=== PATIENT | female | born 1955 | race Caucasian/White ===

== ENCOUNTER 2021-06-18 13:16 | Outpatient (REF) | payer BC, SELFPAY | END 2021-06-18 13:17 | disposition home or self-care (01) | LOC: HO.LNP 13:16 | PROVIDERS: Visit Provider Specialist | DX: H02.821 Cysts of right upper eyelid (principal) | CPT/HCPCS: 88304 ==

== ENCOUNTER 2025-01-31 09:44 | Outpatient (AMB) | payer BC, SELFPAY ==
--- NOTE | 2025-01-31 10:21 | A.SPINEOV_ITS ---
Intake Visit Reasons: low back pain/leg pain Intake Note: Ms. Jones is here today c/o low back and bilateral leg pain. MRI done @ [facility] (brought disc). 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 HPI: This 69-year-old female developed back pain couple of months ago. The p ain is located in the mid lumbar region, around the SI joints and then wrapping towards the hips. Sometimes there is radiation to her thigh. The pain can vary from 3-10. When she bends forward she can get stuck. She can not lay on her sides anymore during sleeping. No weakness or numbness. She saw an orthopedist were excluded hip pathology and thought her symptoms were coming from the spine. PMH: Arthritis, hypertension, right knee replacement hysterectomy, foot and hand surgeries Medications: Faint 0 bright, Tylenol Arthritis, triamcinolone,irbesartan Allergies: Iodine Social history: Nonsmoker Physical Exam: Pleasant female. She walks in a flexed position. No pain with axial loading. SI joint provocative test negative. Radiological Studies: MRI done at [facility] on 12/19/2024 shows severe degenerative disc disease L2-3, L1-L2 and T12-L1. Impression/Plan: This patient developed pain in the lumbar region few months ago. Differential diagnosis is lumbar degenerative disc disease/arthritis versus sacroiliitis. I would like to refer her to our pain management team to to see if with the injections we can localize the origin of the pain. Thank you for allowing me to participate in your patients care. total time spent was 50 minutes in counseling ,coordination of plan, personal review of imaging, surgical decision making and subsequent plan Scott Nails MD, PhD Spine Fellowship Trained Neurosurgeon Director, [facility] Orders: Referrals Pain Management Referral M51.369 - Other intervertebral disc degeneration, lumbar region without mention of lumbar back pain or lower extremity pain Coding Level of Care Code New Pt Level 4 (15656) Diagnoses Lumbar degenerative disc disease M51.369
== END 2025-01-31 11:28 | disposition home or self-care (01) ==
LOC: HO.HNS 09:45
PROVIDERS: PCP Physician Assistant; Visit Provider Neurological Surgery
DX: M51.369 Other intervertebral disc degeneration, lumbar region without mention of lumbar back pain or lower extremity pain (principal)
CPT/HCPCS: 99204

== ENCOUNTER → 2025-01-31 09:44 | Outpatient (BNVA) | payer BC, SELFPAY | PROVIDERS: PCP Physician Assistant; Visit Provider Neurological Surgery ==

== ENCOUNTER 2025-02-13 09:40 | Outpatient (AMB) | payer BC, SELFPAY ==
--- NOTE | 2025-02-13 09:43 | A.OFFVIS_ITS ---
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 She reports a sudden onset of severe pain about two months ago, with the pain starting in the lower back, spreading around the hips, and extending to the right thigh. No triggering event was identified, and the pain is described as stabbing and throbbing in nature, with episodes severe enough to reach a pain scale rating of 10. Associated symptoms include pain radiating to the thigh, specifically the right thigh, and a sensation similar to compression. The patient denies experiencing constant back spasms but notes discomfort similar to misalignment or throbbing like with kidney stones within the affected areas. This patient's medical history is notable for prior arthritis, hypertension, a knee replacement 15 years ago, and a history of hysterectomy. She reports allergic reactions to iodine IV dye. The patient has addressed her pain using Tylenol Arthritis without relief. She also has a documented history of kidney stones. Per referral notes, MRI done at [facility] on 12/19/24 shows severe degenerative disc disease L2-3, L1-L2 and T12-L1, serving as a potential concerns for her current symptoms, alongside confirmed sacroiliac joint dysfunction. She has completed physical therapy and chiropractic adjustments in the past with minimal to no pair relief. - Onset: Sudden onset roughly two months ago - Quality: Stabbing, aching, pulling, sharp, heavy, dull and throbbing - Primary Location: Lower back - Radiation: To the hips and right thigh - Exacerbating Factors: Sleeping and bending, extending backwards, upright positions - Relieving Factors: Tylenol Arthritis, activity modifications with minimal relief - Impact on Function: Difficulty in rising from bed due to significant pain - Affect: Pain disrupts patient's sleep; significant discomfort noted. - Analgesia: Taking Tylenol Arthritis for pain management; severity reaches 10 at worst, aiming for daily relief. - Adverse Effects: Allergy to iodine confirmed. - Activities of Daily Living: Pain affects ability to rise, possibly impacting chores and activities. - Aberrant Drug-Related Behaviors: No reported misuse of medication. Oswestry Low Back Pain Disability=13 [facility] Medical History (Updated 02/13/25 @ 23:09 by AIDEE Mcdonnell) Varicose veins of both lower extremities Insomnia Lichen planus of genitalia Arthritis HTN (hypertension) Surgical History (Updated 02/13/25 @ 10:16 by AIDEE Mcdonnell) History of carpal tunnel release of both wrists History of foot surgery H/O hand surgery History of total right knee replacement (~2009) Social History (Updated 02/13/25 @ 09:47 by Vanda Ellison) Alcohol intake: never Patient Tobacco Use Status: Never used Tobacco Review of Systems Const Details: - Musculoskeletal: Reports back pain with radiation to hips, denies spasms. - Respiratory: Denies breathing difficulty, except with iodine exposure. - Neurological: Reports pain radiating to right leg. Denies bladder or bowel dysfunction or saddle anesthesia. - Sleep: Reports disrupted sleep, wakes frequently. All systems reviewed & are unremarkable except as noted in HPI and below Physical Exam Vital Signs: Last Vital Signs Pulse 80 02/13/25 09:47 BP 162/76 H 02/13/25 09:47 Pulse Ox 99 02/13/25 09:47 Oxygen Delivery Method Room Air 02/13/25 09:47 BMI result Body Mass Index 31.2 General: Appears afebrile. Alert and oriented. Mood and affect appropriate. Follows and participates in conversation appropriately. Respiratory effort is unlabored. No cough. Able to transition from sit to stand unassisted. Ambulates with bilaterally normal heel strike and toe off. General: Yes no CVA tenderness Back/Spine/Pelvis Other: Limited lumbar ROM due to pain. Mildly antalgic gait. No limping. Lumbar extension and axial rotations reproduce moderate pain, lumbar flexion forward and bending reproduces mild pain. Demonstrates 5/5 strength of quadriceps bilaterally as well as flexion/dorsiflexion of bilateral feet against resistance. 2+ pedal pulses bilaterally. Straight leg rise with dorsiflexion negative bilaterally. +2 patellar and achilles reflexes bilaterally. Facet loading test positive bilaterally. Arpit?s and Stinchfield tests are negative bilaterally. No groin pain with I/E hip rotations. Valsalva maneuver negative. Back: no CVA tenderness Cervical Spine: cervical ROM normal, No cervical muscular tenderness, pain with cervical ROM and No Cervical spine tenderness Thoracic/Lumbar Spine: thoracic and lumbar spine normal to inspection, No Thoracic/lumbar spine scar(s), Lasegue's sign negative, straight leg raise negative bilaterally, pain with thoraco-lumbar ROM, paraspinal muscle te nderness, thoraco-lumbar ROM limited, No thoracic spinal tenderness and lumbar spinal tenderness (L4-S1) Pelvis: no buttock tenderness Sacroiliac joints: bilaterally tender to palpation (mild) Extrem General: Yes capillary refill normal, Yes no clubbing, cyanosis or edema and Yes other (RLE varicose veins with inflammation, no pain per patient) Results Reviewed Results Reviewed: Per Dr. Nails note 01/31/25: MRI done at [facility] on 12/19/2024 shows severe degenerative disc disease L2-3, L1-L2 and T12-L1. Assessment & Plan Assessment & Plan (1) Low back pain: Code(s): M54.50 - Low back pain, unspecified Category: Medical (2) Muscle spasm of back: Code(s): M62.830 - Muscle spasm of back Category: Medical (3) Sacroiliitis: Code(s): M46.1 - Sacroiliitis, not elsewhere classified Category: Medical (4) Lumbar degenerative disc disease: Code(s): M51.369 - Other intervertebral disc degeneration, lumbar region without mention of lumbar back pain or lower extremity pain Category: Medical (5) Lumbosacral spondylosis: Code(s): M47.817 - Spondylosis without myelopathy or radiculopathy, lumbosacral region Category: Medical Plan Arrangements will be made for diagnostic injections to elucidate the precise origin of pain, with attention to potential lumbar degenerative disc disease, sa croiliac joint dysfunction, or arthritis. The procedure will be conducted with [id number] contrast in local OR setting. Guidance provided stressed the minimal risk of these diagnostic injections and the significant potential aid in isolating the pain source for proper treatment planning. Schedule diagnostic bilateral L3-L4 DR L5 medial branch blocks with local and fluoroscopy. If she has significant relief from the diagnostic blocks for her predominantly axial low back pain, will consider either therapeutic injections, Sprint PNS or RFA depending on her preference. Expectations, risks and benefits were reviewed. Patient is aware she will be contacted to schedule this procedure. All questions and concerns have been answered and patient agreed with the andres atment plan. Follow-up after injections and sooner as needed. Patient was informed and verbally consented to the use of an ambient scribe for clinic note documentation during this visit. Coding Level of Care Code New Pt Level 4 (49866) Diagnoses Low back pain M54.50 Muscle spasm of back M62.830 Sacroiliitis M46.1 Lumbar degenerative disc disease M51.369 Lumbosacral spondylosis M47.817
[2025-02-13 09:47] VITALS: BP 162/76; PULSE 80; O2SAT 99; BMI 31.2
--- OUTSIDE RECORDS SUMMARY | 2025-02-13 10:41 | XMS_ITS | Data Portability ---
Author Organization [facility], , [facility] Address [address] [place] [address] Care Team Providers Care Chief Specialist Leed Name Role Phone TOMAS MCCORMACK Orthopedic Surgeon ARIADNE MITCHELL Orthopedic Surgeon TONE GARY [employer] FRANCIA NORRIS Mechanical Tech RADHIKA BILLINGS Primary Care Provider TAISHA COX Vegetable Trimmer Assessment No assessment recorded. Plan of Treatment Reminders Order Date Submit Date Provider Last Modified By Organization Details Last Modified Time Details Appointments Foll ow Up, 15 2024 11:00A M RADHIKA BILLINGS PA-C Not available Not available Not available Mamm ogra m, Scre enin g 2024 11:30A M [facility] Mammography Not available Not available Not available Lab None ian rded . Referral None ian rded . Procedures None ian rded . Surgeries None ian rded . Imaging XR, hip + pelv is, unil ater al, 2 or 3 view - R hip pain wors enin g 2024 025 [facility] (Imaging), [address], [place], [address], 11/25/2024 11:36:35 XR, sacr oili ac join t(s) - radi atin g R hip pain wors enin g. 2024 025 [facility] (Imaging), [address] [place], [address], 11/25/2024 11:39:42 XR, knee , weig htbe jhonny g - wors enin g R knee pain , s/p knee repl acem ent in 50s 2024 025 [facility] (Imaging), [address], [place], [address], 11/07/2024 13:29:35 Medication Orders irbe sart an 150 mg tabl et 2024 025 atul luna [facility], [facility], [place], [address], 09/05/2024 12:44:13 losa rtan 25 mg tabl et 2023 024 [facility], [facility], [place], [address], 07/23/2024 09:15:11 Patient TargetsNo targets recorded. Patient InstructionsNo instructions recorded. Reason for Referral None Reported. Results Created Date Observation Date Name Description Value Unit Range Abnormal Flag Note LastModifiedBy Organization Detail LastModifiedTime 08/30/2008/30/2024 LIPID PANEL cholesterol 198 mg/dL <200 mg/dl Sosa able 200-2 39 mg/dl Borde rline High >240 mg/dl High Not Available [address], [address], 08/30/2024 14:06:11 08/30/20 24 08/30/2024 LIPID PANEL triglyceride s 227 mg/dL <150 mg/dL Rona l 150-1 99 mg/dL Borde rline High 200-4 99 mg/dL High >500 mg/dL Very High Not Available [address], [address], 08/30/2024 14:06:11 08/30/20 24 08/30/2024 LIPID PANEL direct HDL 42 mg/dL <40 mg/dl - Major Risk for CHD >60 mg/dl - Negat masha Risk for CHD Not Available [address], [address], 08/30/2024 14:06:11 08/30/20 24 08/30/2024 LDL - CALCU LATED LDL - calculated 111 RISK CATEG ORY LDL GOAL _ CHD or CHD Risk Equiv alent s <100 mg/dl (10-y ear risk >20%) 2+ Risk Facto rs <130 mg/dl (10-y ear risk <= 20%) 0-1 Risk Facto r? <160 mg/dl ? Almos t all peopl e with 0-1 risk facto r have a 10 year risk <10%, thus 10 year risk asses ment in peopl e with 0-1 risk facto r is not eileen craig. Not Available [address], [address], 08/30/2024 14:06:12 08/30/20 24 08/30/2024 BASIC METAB OLIC PANEL glucose 107 mg/dL 70-100 high Not Available [address], [address], 08/30/2024 14:12:15 08/30/20 24 08/30/2024 BASIC METAB OLIC PANEL BUN 18 mg/dL 7-18 Not Available [address], [address], 08/30/2024 14:12:15 08/30/20 24 08/30/2024 BASIC METAB OLIC PANEL creatinine 0.8 mg/dL 0.8-1. 3 Not Available [address], [address], 08/30/2024 14:12:15 08/30/20 24 08/30/2024 BASIC METAB OLIC PANEL B/C 22.5 ratio Not Available [address], [address], 08/30/2024 14:12:15 08/30/20 24 08/30/2024 BASIC METAB OLIC PANEL GFR >=60ML /MIN mL/mi n normal >=60m L/min - Rona l or midly reduc ed <60mL /min- Decre ased kidne y funct ion <15mL /min - Kidne y failu re [facility] calcu lates estim ated Glome rular Filtr ation Rate (eGFR ) using the Chron ic Kidne y Disea se Epide miolo gy Colla borat ion (CKD- EPI) Equat ion (Inke r et. al 2020) as recom dakota d by the Natio nal Kidne y Found ation . eGFR is based on age, serum creat inine , and sex. CKD-E PI does not calcu late eGFR by race, does not apply to child gwen (age <18 years ), and shoul d not be used in pregn isabell. Not Available [address], [address], 08/30/2024 14:12:15 08/30/20 24 08/30/2024 BASIC METAB OLIC PANEL sodium 143 mmol/ L 136-14 5 Not Available [address], [address], 08/30/2024 14:12:15 08/30/20 24 08/30/2024 BASIC METAB OLIC PANEL potassium 4.2 mmol/ L 3.5-5. 1 Not Available [address], [address], 08/30/2024 14:12:15 08/30/20 24 08/30/2024 BASIC METAB OLIC PANEL chloride 107 mmol/ L 96-107 Not Available [address], [address], 08/30/2024 14:12:15 08/30/20 24 08/30/2024 BASIC METAB OLIC PANEL anion gap 13.7 5.0-15 .0 Not Available [address], [address], 08/30/2024 14:12:15 08/30/20 24 08/30/2024 BASIC METAB OLIC PANEL CO2 26 mmol/ L 21-32 Not Available [address], [address], 08/30/2024 14:12:15 08/30/20 24 08/30/2024 BASIC METAB OLIC PANEL calcium 9.0 mg/dL 8.5-10 .3 Not Available [address], [address], 08/30/2024 14:12:15 08/30/20 24 08/30/2024 HGB A1C hemoglobin A1C 5.6 % 4.8-6. 0 Goal: <7% in Patie nts with Diabe kimberli An A1c betwe en 5.7-6 .4% is ident ified as pre-d iabet es and sugge sts risk for progr essio n to diabe kimberli Two a1c value s of 6.5% or highe r is consi stent with a diagn osis of diabe kimberli but may need furth er confi rmati on Not Available [address], [address], 08/30/2024 14:16:01 08/30/20 24 08/30/2024 HGB A1C estimated average glucose 114.0 mg/dL Not Available [address], [address], 08/30/2024 14:16:01 06/27/20 24 06/27/2024 MAMMO , scree cheng, tomos ynthe sis, bilat eral MAMMO, SCREEN , MIKEY, BILAT: 2023. BI-RAD S: 1 CLINIC AL: 69-yea r old Female for Bilate ral Screen ing Mammog nakita. Radha Gamboa lifeti me risk of 8.4%. No person al or first- degree family histor y of breast cancer . Nino savage report ed family histor y of breast cancer : matern al grandm other and matern al aunt. PRIOR EXAMS: Review ed previo us images from 2022 and 2020. MAMMOG JOANNA TECHNI QUE: 3D mammog joanna (tomos ynthes is) and 2D mammog joanna (C-vie w) images are genera oswald. Images review ed with a CAD system . DENSIT Y B. There are scatte red areas of fibrog landul ar densit y. MAMMOG JOANNA FINDIN GS Bilate ral: No suspic ious mass, asymme try, microc alcifi cation , or other abnorm ality seen. CONCLU SIONNo eviden ce of malign isabell. RECOMM ENDATI ONS Bilate ralAnn ual screen ing mammog joanna. ADMINI STRATI VE: A lay summar y was mailed to your patien t indica ting the result s and recomm endati ons for follow -up. OVERAL L ASSESS MENT CATEGO RY BI-RAD S-1: Negati ve. The [employer] recomm ends annual screen ing mammog joanna beginn ing at age 40 for women with averag e risk of breast cancer . ELECTR ONICAL LY SIGNED : Melecio Son M.D. on 2023 at 02:35: 05 PM Yrn valiente Physic wilfrido: Melecio Son [email or web address] [facility] (Imaging) [address] [place], [address], 06/27/2024 14:54:26 11/08/19 25 11/07/2024 XR, knee, weigh tbear ing CLINIC AL HISTOR Y: Right knee pain. TECHNI QUE: AP, obliqu e and latera l views of the right knee obtain ed. COMPAR ANGEL: March 03, 2022 FINDIN GS: There is no fractu re or sublux ation. . Patien t is status post right total knee arthro plasty . Alignm ent is anatom ic. There is no eviden ce of loosen ing. There is no effusi on.. IMPRES KELI: Status post right total knee arthro plasty . No abnorm ality. . Yrn valiente Physic wilfrido: Melecio Son [email or web address] [facility] (Imaging) [address] [place], [address], 11/21/2024 09:20:44 11/26/19 25 11/25/2024 XR, hip + pelvi s, unila teral , 2 or 3 view CLINIC AL HISTOR Y: Radiat ing right hip pain worsen ing. TECHNI QUE: Two views of the right hip are obtain ed. An AP view of the pelvis . 3 images . Additi onal inform ation: Patien t had extrem e diffic ulty positi oning for frog-l eg latera l. FINDIN GS: No acute fractu re seen. No right hip disloc ation seen. Subjec tively minima l osteoa rthrit ic change s within the right hip. Degene rative change s within the spine. IMPRES KELI: No acute bony abnorm ality seen. Please see body of report . Yrn valiente Physic wilfrido: Randall [facility] (Imaging) [address], [place], [address], 11/26/2024 13:54:31 11/26/19 25 11/25/2024 XR, sacro iliac joint (s) CLINIC AL HISTOR Y: Radiat ing right hip pain worsen ing TECHNI QUE: 3 views of the sacrum , coccyx and sacroi liac joints are obtain ed. 3 images . COMPAR ANGEL: Pelvis /right hip radiog raph same day. FINDIN GS: No acute fractu re seen. Some degene rative change s within the spine. No sacroi liac joint disloc ation. IMPRES KELI: No acute bony abnorm ality. Yrn valiente Physic wilfrido: Randall [facility] (Imaging) [address], [place], [address], 11/26/2024 13:54:32 Result Notes None recorded. Problems Name Problem SNOMED Code Status Onset Date Resolution Date Notes Provider Name and Address Organization Details Recorded Time Mixed hyperlip idemia 878543414 Completed 11/26/[address] [place] [address] [place], [address] , [facility] 6 11:49:47 Abnormal gait 51886950 Completed 11/26/2015 Justine ToddO. [address] [place], [place] [address] [place], [address], [facility] 6 11:49:47 Kidney stone 31415526 Active JF Richards [address] [place], [place] [address] [place], [address], [facility] 2 11:52:44 Osteoart hritis of joint of hand 41911537 Active JF Richards [address] [place], [place] [address] [place], [address], [facility] 2 11:52:48 Polyp of colon 31293391 Active 2016 adenomat ous polyp, last colo 01/2018 repeat 3 yrs JF Richards [address] [place], [place] [address] [place], [address], [facility] 2 11:52:52 Obesity 353812352 Active 2017 JF Richards [address] [place], [place] [address] [place], [address], [facility] 2 11:52:38 Osteoart hritis 625474241 Active 2021 JF Julio [address] [place], [place] [address] [place], [address], [facility] 2 10:27:01 Pain of right knee joint 14994389616 4100 Active 2022 s/p total replacme nt. JF Julio [address] [place], [place] [address] [place], [address], [facility] 3 09:27:20 Carpal tunnel syndrome of right wrist 02926777934 9108 Active 2022 JF Julio [address] [place], [place] [address] [place], [address], [facility] 3 09:27:37 Hypertri glycerid emia 247721009 Active 2022 JF Julio [address] [place], [place] [address] [place], [address], [facility] 3 09:40:55 Impaired fasting glycemia 105009930 Active 2022 JF Julio [address] [place] [address] [place], [address], [facility] 3 15:40:39 Prediabe kimberli 148110771 Active 2022 JF Julio [address] [place], [place] [address]am[place], [address], [facility] 3 11:26:08 Chest pain 01998161 Active 2023 [facility] Jana Sol null, [facility] 4 10:06:59 Essentia l hyperten keli 08281287 Active 2023 JF Julio [address] [place] [address] [place], [address], [facility] 4 10:03:30 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 Procedures Surgical History Date Name Laterality Status Provider Name and Address Organization Details Recorded Time 023 Medicare Wellness Visit completed Tabitha Torres MA [facility] 03/06/2023 08:47:08 023 Cardiovascular disease risk reduction counseling completed JF Julio [address] [place] [address], [address], [facility] 03/06/2023 09:50:21 022 Medicare Wellness Visit completed Thi Armendariz MA [facility] 11/23/2021 16:23:42 018 Colonoscopy completed Maurice Freeman NP [address] [place] [address], [phone], [facility] 02/06/2018 19:32:13 016 Michael - Colonoscopy completed Adonis Rodriguez MD [address] [place] [address], [address], [facility] 07/18/2016 08:07:16 completed Yasmin Lacy LPN [facility] 06/08/2012 09:40:06 Total Hysterectomy completed Yasmin Lacy LPN [facility] 06/08/2012 08:53:54 Tonsillectomy completed Yasmin Lacy LPN [facility] 06/08/2012 08:53:54 Cystourethroscopy completed Yasmin Lacy LPN [facility] 06/08/2012 09:40:06 Imaging Results None recorded. Procedure Notes None recorded. Medical Equipment None Reported. Allergies Allergen ID Allergen Name Allergen Category Reaction Reaction Severity Criticality Documentation Date Start Date Code Code System Note Provider Name and Address Organization Details Recorded Time 784648 Aleve medicatio n itching Not available Not available 06/05/201247938 1 RxNorm Aleve -D Jana Salmeron [facility] 2 14:01:43 068884 Product containin g penicilli n (product) medicatio n Not available Not available Not available 06/05/2012 11625 8001 SNOMED Monet Green [facility] 2 11:03:18 788672 Keflex medicatio n nausea Not available Not available 06/05/201240100 7 RxNorm Monet Green [facility] 2 11:03:18 126162 Macrodant in medicatio n Not available Not available Not available 06/05/2012 4 RxNorm Monet Green [facility] 2 11:03:18 758140 Iodinated contrast media (substanc e) medicatio n respirato ry distress Not available Not available 06/08/2012 13932 2004 SNOMED Yasmin Lacy LPN [facility] 2 08:56:47 777019 losartan medicatio n Not available Not available Not available 07/09/2024 66688 RxNorm dizzy /upse t stoma JF Bingham [address] [place] [address], [place], [address], [facility] 4 11:31:52 669329 lisinopri l medicatio n Not available Not available Not available 07/30/2024 22747 RxNorm cough RADHIKA BILLINGS PA-C [address] [place] [address], [place], [address] [place] [address] 4 10:46:48 Medications Name Sig Start Date Stop Date Status Note LastModified by Organization Details LastModified Time cyclobenz aprine 10 mg tablet PLEASE SEE ATTACHED FOR DETAILED DIRECTIO NS 11/24 completed Not Available Not Available Not Available amoxicill in 500 mg capsule 03/06 completed not taking 03/06/23 SM Not Available Not Available Not Available silver sulfadiaz ine 1 % topical cream APPLY A 1/16 INCH (1.5 MM) THICK LAYER TO ENTIRE BURN AREA BY TOPICAL ROUTE 2 TIMES PER DAY active Not Available Not Available No t Available nystatin 100,000 unit/mL oral suspensio n 04/30 completed Not Available Not Available Not Available clindamyc in HCl 300 mg capsule 04/30 completed Not Available Not Available Not Available azithromy sadie 250 mg tablet take 2 tabs on day one and 1 tab daily for 4 more days 11/29 completed Not Available Not Available Not Available alprazola m 1 mg tablet TAKE 1 TABLET BY MOUTH 1 HOUR PRIOR TO SURGERY 06/07 completed Not Available Not Available Not Available nystatin 100,000 unit/gram topical ointment APPLY TOPICALL Y 3 TIMES WEEKLY TO VULVA active Not Available Not Available No t Available benzonata te 200 mg capsule Take 1 capsule 3 times a day by oral route for 10 days. 11/29 completed Not Available Not Available Not Available hydrocodo ne 5 mg-acetam inophen 325 mg tablet 04/30 completed Not Available Not Available Not Available meloxicam 15 mg tablet TAKE 1 TABLET BY MOUTH DAILY AFTER A MEAL. STOP IF STOMACH UPSET OCCURS 06/07 completed Not Available Not Available Not Available betametha sone, augmented 0.05 % topical cream 12/12 completed Not Available Not Available Not Available clindamyc in HCl 150 mg capsule 09/14 completed Not Available Not Available Not Available metronida zole 500 mg tablet 04/30 completed Not Available Not Available Not Available fluocinon terrie 0.05 % topical ointment 11/29 completed Not Available Not Available Not Available prochlorp erazine maleate 10 mg tablet 10/12 completed Not Available Not Available Not Available sulfameth oxazole 800 mg-trimet hoprim 160 mg tablet TAKE 1 TABLET BY MOUTH EVERY 12 HOURS FOR 7 DAYS 01/18 completed Not Available Not Available Not Available tramadol 50 mg tablet TAKE 1 TABLET BY MOUTH EVERY 6 HOURS NEEDED 03/06 completed not taking 03/06/23 SM Not Available Not Available Not Available amoxicill in 500 mg tablet TAKE 1 TABLET BY MOUTH THREE TIMES DAILY FOR 7 DAYS 01/18 completed Not Available Not Available Not Available fenofibra te micronize d 134 mg capsule TAKE 1 CAPSULE DAILY active Not Available Not Available No t Available ketorolac 0.5 % eye drops INSTILL 1 DROP IN THE LEFT EYE FOUR TIMES DAILY. START ON 1 AT BREAKFAS T, LUNCH, DINNER & BED TIME. 11/24 completed not taking 11/24/21 [place] Not Available Not Available Not Available nystatin- triamcino lone 100,000 unit/gram -0.1 % topical ointment 10/12 completed Not Available Not Available Not Available ofloxacin 0.3 % ear drops INSTILL 10 DROPS TO LEFT EAR DAILY FOR 7 DAYS 03/06 completed Not Available Not Available Not Available prednisol one acetate 1 % eye drops,tejas pension INSTILL 1 DROP INTO BOTH EYES TWICE A DAY 11/24 completed not taking 11/24/21 [place] Not Available Not Available Not Available benzonata te 100 mg capsule TAKE 1 TO 2 CAPSULES BY MOUTH 3 TIMES A DAY NEEDED FOR COUGH 12/12 completed Not Available Not Available Not Available cephalexi n 500 mg capsule TAKE 1 CAPSULE BY MOUTH THREE TIMES A DAY FOR 7 DAYS 11/24 completed not taking 11/24/21 [place] Not Available Not Available Not Available triamcino lone acetonide 0.1 % topical ointment APPLY A LENTIL-S IZED AMOUNTTO PICALLY TO VULVA 3 TIMES WEEKLY active Not Available Not Available No t Available halobetas ol propionat e 0.05 % topical ointment 10/12 completed Not Available Not Available Not Available lisinopri l 10 mg tablet TAKE 1 TABLET DAILY. SWITCHFR OM LOSARTAN 07/30 completed s/e- cough. pt d/c Not Available Not Available Not Available losartan 25 mg tablet TAKE 1 TABLET DAILY 07/23 completed Not Available Not Available Not Available gabapenti n 300 mg capsule 11/30 completed Not Available Not Available Not Available hydrochlo rothiazid e 25 mg tablet Take 1 tablet every day by oral route. 08/05 completed declines to try due to s/e chance. Not Available Not Available Not Available mupirocin 2 % topical ointment APPLY TOPICALL Y JUST INSIDE EACH NOSTRIL TWICE DAILY FOR 5 DAYS active prn, before surgerie s. Not Available Not Available Not Available irbesarta n 150 mg tablet TAKE 1 TABLET DAILY active Not Available Not Available No t Available Cheratuss in AC 10 mg-100 mg/5 mL oral liquid Take 10 mL every 4 hours by oral route. 11/29 completed Not Available Not Available Not Available ibuprofen 600 mg tablet TAKE 1 TABLET BY MOUTH EVERY 6 HOURS NEEDED FOR PAIN 01/18 completed Not Available Not Available Not Available methylpre dnisolone 4 mg tablets in a dose pack TAKE DIRECTED FOR 6 DAYS 11/29 completed Not Available Not Available Not Available betametha sone dipropion ate 0.05 % topical ointment 12/12 completed Not Available Not Available Not Available loratadin e 10 mg tablet TAKE 1 TABLET BY MOUTH EVERY DAY 04/30 completed Not Available Not Available Not Available amoxicill in 875 mg-potass ium clavulana te 125 mg tablet TAKE 1 TABLET BY MOUTH EVERY 12 HOURS FOR 7 DAYS 03/03 completed Not Available Not Available Not Available amoxicill in 500 mg-potass ium clavulana te 125 mg tablet 03/06 completed not taking 03/06/23 SM Not Available Not Available Not Available oxycodone 5 mg tablet TAKE 1-2 TABLETS (5-10 MG TOTAL) BY MOUTH EVERY 6 (SIX) HOURS NEEDED FOR MODERATE PAIN. 06/07 completed Not taking 01/19/24 SD/12/04 024- not taking, per pt TR/RMA Not Available Not Available Not Available neomycin- polymyxin -hydrocor t 3.5 mg-10,000 unit/mL-1 % ear drops,tejas p INSTILL 3 DROPS INTO EACH EAR FOUR TIMES DAILY 03/06 completed Not Available Not Available Not Available Estrace 0.01% (0.1 mg/gram) vaginal cream 11/29 completed Not Available Not Available Not Available olmesarta n 20 mg tablet active Not Available Not Available Not Available azithromy sadie 500 mg tablet 12/12 completed Not Available Not Available Not Available Premarin 0.625 mg/gram vaginal cream 11/29 completed Not Available Not Available Not Available Boostrix Tdap 2.5 Lf unit-8 mcg-5 Lf/0.5 mL intramusc ular syringe inject 0.5 millilit er intramus cularly 06/17 completed Not Available Not Available Not Available chlorhexi dine gluconate 0.12 % mouthwash SWAB SURGICAL AREA TWICE DAILY 04/30 completed Not Available Not Available Not Available multivita min one daily active per pt Not Available Not Available No t Available Tylenol Arthritis Pain 2 tabs TID active per pt Not Available Not Available No t Available Zostavax (PF) 19,400 unit/0.65 mL subcutane ous suspensio n active Not Available Not Available Not Available ProAir HFA 90 mcg/actua tion aerosol inhaler INHALE TWO PUFFS BY MOUTH EVERY 4 HOURS NEEDED 11/29 completed Not Available Not Available Not Available Trilipix 135 mg capsule,d elayed release 03/21 completed Not Available Not Available Not Available estradiol 10 mcg vaginal tablet INSERT 1 TABLET VAGINALL Y 3TIMES A WEEK active Not Available Not Available No t Available Prevnar 13 (PF) 0.5 mL intramusc ular syringe ADM 0.5ML IM UTD 06/17 completed Not Available Not Available Not Available Aerochamb er Plus Flow-Vu USE DIRECTED 11/29 completed Not Available Not Available Not Available Flucelvax (PF) 45 mcg (15 mcg x 3)/0.5 mL IM syringe active Not Available Not Available Not Available Fluvirin 45 mcg (15 mcg x 3)/0.5 mL intramusc ular suspensio n 10/12 completed Not Available Not Available Not Available Xiidra 5 % eye drops in a dropperet te 03/23 /2022 completed not taking 11/24/21 [place] Not Available Not Available Not Available Flucelvax Quad (PF) 60 mcg (15 mcg x 4)/0.5 mL IM syringe VACCINAT ION ADMINIST ERED BY PHARMACI ST 09/14 completed Not Available Not Available Not Available Flucelvax Quad (PF) 60 mcg (15 mcg x 4)/0.5 mL IM syringe 09/14 completed Not Available Not Available Not Available Afluria Qd (36 mos up)(PF)60 mcg (15 mcg x4)/0.5 mL IM syringe inject 0.5 millilit ers intramus cularly 06/17 completed Not Available Not Available Not Available Fluad Quad (65yr up)(PF) 60 mcg (15 mcg x 4)/0.5mL IM syringe ADM 0.5ML IM UTD 06/17 completed Not Available Not Available Not Available Vitals Date Recorded Body height Body mass index (BMI) Body weight Oxygen saturation Oxygen saturation in Arterial blood by Pulse oximetry Heart rate Systolic blood pressure Diastolic blood pressure Systolic blood pressure Diastolic blood pressure Provider Name and Address Organization Details Last Updated DateTime 5 175.26 cm 30.5 kg/m2 75312.4 3 g 97 % 97 % 74 /min 148 mm[Hg] 86 mm[Hg] 144 mm[Hg] 81 mm[Hg] Karen Summers MA [facility] 5 11:16:01 Date Recorded Body height Oxygen saturation Oxygen saturation in Arterial blood by Pulse oximetry Heart rate Body mass index (BMI) Body weight Systolic blood pressure Diastolic blood pressure Systolic blood pressure Diastolic blood pressure Provider Name and Address Organization Details Last Updated DateTime 5 175.26 cm 98 % 98 % 74 /min 30.9 kg/m2 60519.8 1 g 152 mm[Hg] 88 mm[Hg] 132 mm[Hg] 74 mm[Hg] Karen Summers MA [facility] 5 10:57:01 Date Recorded Systolic blood pressure Diastolic blood pressure Provider Name and Address Organization Details Last Updated DateTime 11/22/2024 146 mm[Hg] 90 mm[Hg] RADHIKA BILLINGS PA-C [address] [place] [address], [phone] 11/22/2024 15:31:33 Date Recorded Body height Heart rate Oxygen saturation Oxygen saturation in Arterial blood by Pulse oximetry Systolic blood pressure Diastolic blood pressure Provider Name and Address Organization Details Last Updated DateTime 5 175.26 cm 74 /min 96 % 96 % 164 mm[Hg] 92 mm[Hg] Ade Jyoti [facility] 5 15:18:13 Date Recorded Body height Body mass index (BMI) Body weight Heart rate Oxygen saturation Oxygen saturation in Arterial blood by Pulse oximetry Systolic blood pressure Diastolic blood pressure Provider Name and Address Organization Details Last Updated DateTime 5 175.26 cm 31.4 kg/m2 47345.3 8 g 74 /min 98 % 98 % 126 mm[Hg] 78 mm[Hg] Christiano [facility] 5 11:08:21 Date Recorded Body height Body mass index (BMI) Body weight Oxygen saturation Oxygen saturation in Arterial blood by Pulse oximetry Heart rate Systolic blood pressure Diastolic blood pressure Systolic blood pressure Diastolic blood pressure Provider Name and Address Organization Details Last Updated DateTime 4 175.26 cm 31.2 kg/m2 43393.9 9 g 97 % 97 % 70 /min 144 mm[Hg] 88 mm[Hg] 140 mm[Hg] 86 mm[Hg] Karen Summers [facility] 4 09:39:28 Date Recorded Systolic blood pressure Diastolic blood pressure Provider Name and Address Organization Details Last Updated DateTime 07/25/2024 140 mm[Hg] 80 mm[Hg] RADHIKA BILLINGS PA-C [address] [place] [address], [phone] 07/25/2024 08:39:43 Social History Question Answer Notes LastModified by Organizat ion Details LastModified Time Tobacco Smoking Status Never Smoker Jana lewis [facility] 06/11/2012 14:10:46 What Is Your Level Of Caffeine Consumption? Moderate 2-4 Coke's A Day [email or web address] Information not available 06/11/2012 How Much Tobacco Do You Chew? None [email or web address] Information not available 06/11/2012 What Type Of Diet Are You Following? REGULAR Information not available 06/11/2012 Which Illicit Or Recreational Drugs Have You Used? None Information not available 06/11/2012 Education 12 [email or web address] Information no t available 06/11/2012 Are There Any Guns Present In Your Home? No Information not available 11/26/2015 Do You Use Insect Repellent Routinely? No Information not available 11/24/2021 Live Alone Or With Others? With Others Information not available 06/11/2012 Patient Has Health Care Proxy Signed And In Chart Yes [email or web address] Information not available 08/22/2018 MOLST Form Signed And In Chart 05/02/2023 [email or web address] Information not available 05/04/2023 Marital Status [email or web address] Informatio n not available 06/11/2012 Mosquito Repellent Used Routinely No [email or web address] Information not available 06/11/2012 What Was The Date Of Your Most Recent Tobacco Screening? 02/07/2025 [email or web address] Information not available 02/07/2025 How Many Children Do You Have? 2 Grown [email or web address] Information not available 06/11/2012 Do You Use Your Seat Belt Or Car Seat Routinely? Yes Information not available 11/24/2021 Seat Belts Used Routinely Yes [email or web address] Information not available 06/11/2012 Are You Sexually Active? No Please Do Not Ask Patient At Visits [email or web address] Information not available 12/12/2018 Smoke Alarm In Home Yes Information not available 06/11/2012 Do You Have Smoke And Carbon Monoxide Detectors In Your Home? Yes [email or web address] Information not available 11/24/2021 Are You Passively Exposed To Smoke? No Information not available 03/06/2023 General Stress Level High Information not available 06/11/2012 Do You Use Sunscreen Routinely? Yes As Needed [email or web address] Information not available 11/26/2015 Sex: Unknown Functional Status Question Answer Note LastModified by Organization D etails LastModified Time What is your level of alcohol consumption? 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 None [email or web address] Information not available 11/24/2021 Mental Status None recorded. Family History Relationship Description Onset Age of this Age Resolved Age Notes LastModified by Organization Details LastModified Time Father Chronic obstructive pulmonary disease 67 previo usly record ed as COPD [email or web address] Not available 11/21/2013 08:58:59 Father Myocardial infarction 50 [email or web address] Not available 11/24 11:45:52 Maternal Grandmother Malignant tumor of breast 70 [email or web address] Not available 2013 08:58:59 Mother Hypertensive disorder [email or web address] Not available 2013 08:58:59 Medical History Condition Response Obesity Y Osteoarthritis Y Gynecological HistoryNo gynecological history recorded. Obstetrics History GPAL:G 0 P 0 0 0 0 Immunizations Vaccine Type Date Status Note Provider Nam e and Address Organization Details Recorded Time influenza, seasonal, intradermal, preservative free 2 completed Not Available [facility] 09/21/2019 02:18:38 Tdap 4 completed Not Available [facility] 09/21/2019 02:16:08 Influenza, split virus, trivalent, preservative 3 completed GORDON Shepherd, [facility] 11/21/2013 08:42:26 zoster live 5 completed GORDON López, [facility] 11/26/2015 11:08:26 influenza nasal, unspecified formulation 5 [facility]/26/2015 11:08:26 Influenza, split virus, quadrivalent, preservative 6 completed [facility] 05/25/2016 11:22:41 Influenza, split virus, quadrivalent, preservative 7 completed CARLINE Lopez[facility] 05/16/2017 12:25:26 Influenza, split virus, quadrivalent, preservative 8 completed [facility] 05/18/2018 13:47:33 Tdap 9 completed [facility] 06/28/2024 09:34:33 Influenza, split virus, quadrivalent, preservative 0 completed Evelia Stout PA-C [address] [place] [address], [phone], [facility] 06/17/2020 11:08:29 Pneumococcal conjugate PCV 13 0 completed Evelia Stout PA-C [address] [place] [address], [phone], [facility] 06/17/2020 11:09:05 Influenza, high-dose, quadrivalent, PF 1 completed [facility] Cam[facility] 05/05/2021 15:59:04 Influenza, split virus, quadrivalent, preservative 2 completed [facility]AD RdzUC[facility] 04/26/2022 11:12:37 Influenza, adjuvanted, quadrivalent, PF 3 completed Karen Summers MA [facility] 05/16/2023 11:30:33 Tdap 0 completed [facility] 06/28/2024 09:35:11 Influenza, adjuvanted, trivalent, PF 4 completed [facility] 06/28/2024 09:36:06 Pneumococcal conjugate PCV20, polysaccharide [id number] conjugate, adjuvant, PF 2 completed [facility] 06/28/2024 09:37:00 zoster recombinant 2 completed [facility] 06/28/2024 09:37:34 zoster recombinant 2 completed [facility] 06/28/2024 09:37:53 Past Encounters Encounter ID Performer Location Encounter Start Date Encounter Closed Date Diagnosis/Indication Diagnosis SNOMED-CT Code Diagnosis ICD10 Code Diagnosis Note [id number] Yelena Singh PA-C FP, [facility], OFFICE [address] [place], [place] [address]sil[place] [address] 06/11/2012 13:50:17 06/11/2012 15:03:44 [id number] Justine Weston D.O. [facility], OFFICE [address] [place] [address] 09/20/2012 13:47:13 09/20/2012 14:22:04 [id number] Jonathon Joshi MD Radiology , [facility] [address] [place] [place] [address] 10/04/2012 10:35:55 10/05/2012 09:11:25 [id number] Justine Weston D.O. [facility], OFFICE [address] [place] [address] 11/21/2013 08:14:53 11/21/2013 08:58:02 Adult health examination 471969235 see Risk Assessment and Lifestyle Change Counseling section above Counseling [id number] Screening mammography 17403675 Hyperlipidemia 71142341 on fibrate, overdue for labs Osteoarthritis 839285816 bilat knee OA, s/p TKR in [place] 3 yrs ago. bad experience , woudl not wantto go through that surgery again. Administra tion of diphtheria, pertussis, and tetanus vaccine 495872738 [id number] Jayant Ozuna III, MD , [facility], OFFICE [address] [place] [address] 12/19/2013 08:56:46 12/19/2013 09:24:06 Lumbago with sciatica 888683028 [id number] Justine Weston D.O[facility], OFFICE [address] [place] [address] 11/24/2014 08:45:43 11/24/2014 09:18:15 Adult health examination 980030569 see Risk Assessment and Lifestyle Change Counseling section above Counseling 371642381 Arthritis 8178399 hand O A discussed PT/OT will consider if wants cortisone injection in wrist- gave her name of dr. echeverria Hyperlipidemia 18543842 [id number] Justine Weston D.O. [facility], OFFICE [address] [place] [address] 11/26/2015 10:33:45 11/26/2015 11:51:18 Screening for disorder 821355320 Z11.59 Screening for malignant neoplasm of colon 890352465 Z12.11 Referral for a DIRECT booked colonoscop y. This patient is a healthy ASA Class 1 or 2 patient (only mild systemic disease), or a STABLE, well controlled insulin dependent diabetic. They do not have serious cardiac disease ie NV/angiopl asty within 1 year, symptomati c CHF; renal failure with CKD 4 or 5; take Coumadin, Plavix, Aggrenox, etc; nor take chronic narcotics. [Patients who take chronic narcotics should be referred to [facility] for a propofol procedure due to possible inability to sedate adequately with conscious sedation.] Bereavement 43249081 Z63 .4 of parokeet this month, very saD defers therapy, medication s Glaucoma suspect 4961835 08 H40.003 Adult heal th examination 460756314 Z00.00 see Risk Assessment and Lifestyle Change Counseling section above [id number] Len Mckeon DPM Podiatry, [address] [address] 02/12/2016 08:50:03 03/04/2016 15:35:23 [id number] Len Mckeon DPM Podiatry, [address] [address] 02/16/2016 10:35:34 02/18/2016 13:14:14 Hammer toe 886580234 M20.41 [id number] Len Mckeon DPM Podiatry, [address] [address] 03/21/2016 09:42:51 04/18/2016 16:11:40 Hammer toe 629165167 M20.41 [id number] Adonis Rodriguez MD ASP, [address] [address] 07/18/2016 06:47:08 07/18/2016 14:03:23 [id number] Sylvester Sandoval MD , [facility], OFFICE [address] [place] [address] 08/25/2016 08:04:22 08/25/2016 12:56:09 Acute upper respiratory infection 55980946 J06.9 Afebrile in office, no sinus tenderness , and lungs sound clear. Reassured pt nasal congestion is likely due to viral infection. Recommende d sudafed and flonase to help open nasal passages. Can try mucinex if develop phlegm in chest. Recommend humidifier /hot steam shower, lots of fluids to stay hydrated, propping yourself up with pillows to sleep, extra sleep/rest , and ibuprofen as needed. If symptoms worsen or do not gradually improve, please call back. Adjustment disorder with mixed emotional features 35199563 F43.23 Pt very stressed and anxious with recent colonoscop y and having to go back for a repeat colonoscop y in 11/2016, also still bereaving loss of pet bird, and troubled by family relations at home. Offered pt behavioral health options here and she declined at this time. Encouraged pt to find stress relieving activities she can incorporat e into her day. Encourage pt to try and find meetup or social group she can meet new friends through. Pt to call back if she would like to discuss any treatment options. [id number] Justine Weston D.O. , [facility], OFFICE [address] [place] [address] 10/12/2016 09:30:25 10/12/2016 10:10:31 Screening for disorder 499277550 Z11.59 Bronchopneumonia 3415264 07 J18.0 [id number] Justine Weston D.O. [facility], OFFICE [address] [place] [address] 10/17/2016 10:33:53 10/18/2016 16:18:28 Acute upper respiratory infection 11496818 J06.9 Educated patient that URI is a viral illness of the upper airways. It is not bacterial and does not benefit from antibiotic s. Average duration of URI is 7-10 days but in a recent trial, treatment at 7-10 days of illness with antibiotic s, intranasal steroids, or placebo did not alter natural history at 3 weeks. Recommende d symptomati c treatments including NSAIDS, semi-uprig ht sleep position, antihistam larry at HS, limited course of nasal sympathomi metics and/or cough syrups, and nasal saline rinses with soft squeeze bottle or Neti pot. Return for fevers > 101 for 3 days, worsening sinus pain, or failure to resolve in 2-4 weeks. Bronchospasm 6332528 J98 .01 [id number] Justine Weston D.O. [facility], OFFICE [address] [place] [address] 11/29/2016 10:37:02 11/29/2016 11:25:44 Adult health examination 578738858 Z00.00 see Risk Assessment and Lifestyle Change Counseling section above Screening mammography 24 595105 Z12.31 Screening for disorder 787959029 Z11.59 Visual impairment 386110 003 H54.7 glaucoma suspect, narrow angleneeds yearly exam Polyp of colon 86410660 K63.5 recent colonoscop y- 9 mm polyp in hepatic flexure- which gre in 1 year- will get repeat colo in 1 year [id number] Justine Weston D.O. , [facility], OFFICE [address] [place] [address] 11/30/2017 09:12:52 11/30/2017 11:36:44 Adult health examination 834428890 Z00.00 see Risk Assessment and Lifestyle Change Counseling section above Depression screening 171 615033 Z13.89 depression screening tool administer ed, entered into emr, scored and discussed, time greater than 7.5 minutes Screening mammography 24 185293 Z12.31 Polyp of colon 46282404 K63.5 due for repeat colonosocp y this year- pt aware Obesity 302280578 E66.9 discussed increasing exrecise [id number] Nickolas Guerra MD , [facility], [address] [place] [address] 09/14/2018 16:48:10 09/17/2018 13:57:27 Acute upper respiratory infection 48120580 J06.9 Educated patient that URI is a viral illness of the upper airways. It is not bacterial and does not benefit from antibiotic s. Average duration of URI is 7-10 days but in a recent trial, treatment at 7-10 days of illness with antibiotic s, intranasal steroids, or placebo did not alter natural history at 3 weeks. Recommende d symptomati c treatments including NSAIDS, semi-uprig ht sleep position, antihistam larry at HS, limited course of nasal sympathomi metics and/or cough syrups, and nasal saline rinses with soft squeeze bottle or Neti pot. Return for fevers > 101 for 3 days, worsening sinus pain, or failure to resolve in 2-4 weeks. Cough 43506870 R05 [id number] Jaiden Baker MD , [facility], [address] [place] [address] 12/12/2018 09:11:06 12/12/2018 10:48:01 Adult health examination 581953159 Z00.00 see Risk Assessment and Lifestyle Change Counseling section above Depression screening 171 323844 Z13.89 depression screening tool administer ed, entered into emr, scored and discussed, time greater than 7.5 minutes Screening mammography 24 499408 Z12.31 Discussed screening recommenda tion. Patient would like to proceed with screening. Hand pain 10362558 M79.6 43 Chronic DJD of handsWorsvanna masong hand pain and strength Will refer to hand surgery as patient would like to have a new brace made Cataract 260246989 H26.9 CataractsP atient following with Dr Fisher scheduled interventi on at this time Obesity 973729242 E66.9 BMI 31.8Discus sed lifestyle modificati on, mediterran angel diet and 30 minutes daily exerciseRe viewed impaired fasting glycemia noted on last BMP, will recheck in 1 year [id number] Nickolas Guerra MD , [facility], [address] [place] [address] 01/01/2019 15:05:52 01/01/2019 16:31:28 Acute upper respiratory infection 01225815 J06.9 Allergic rhinitis 545557 04 J30.9 [id number] Kash Crump MD , [facility], OFFICE [address] [place] [address] 04/30/2020 11:00:42 05/04/2020 13:36:38 Otalgia 53475903 H92.03 Sinus infx vs otitis media vs URI vs COVID. Sinus PERRY x 7 days. Will treat presumptiv bharti for sinusitis and otitis externa. Discussed risk benefit of ppx abx - pt. would like to try abx. Will take daily probiotic at least 2 hours apart from abx. Denies PCN allergy. Will f/u if sxs worsen. Headache 13745421 R51 Suspected COVID-19 61210 4004 Z03.818 Onset of sxs 7 days ago: nausea, PERRY, cough, mild SOB, ear pain. No known exposure to COVID. . Discussed risk/benef its of testing, reviewed high false negative and importance of ending isolation based on sxs. Patient requesting testing. [facility] COVID order faxed.Advi sed isolation for 7 days from the onset of sxs and until 3 days of improved sxs and 3 days of no fever without use of antipyreti c. Patient safe to stay at home, will f/u if sxs worsen or with any questions or concerns. [id number] Jaiden Baker MD , [facility], [address] [place] [address] 09/10/2020 10:37:14 09/11/2020 11:14:02 Bilateral cataracts 48321255 H26.9 Pre-surger y evaluation 695557448 Z01.818 - pt presenting for pre-op, L cataract surgery scheduled 09/16/[address] Tate - Revised Cardiac Risk Index (RCRI): score 0, class I, 0.4% risk cardiac complicati ons - f/u with PCP as appropriat e [id number] Leonor Cortes , [facility], [address] [place] [address] 11/24/2021 11:13:35 12/02/2021 16:36:01 Adult health examination 967650248 Z00.00 Counseling 261377666 Z71 .9 Depression screening 171 861628 Z13.31 depression screening tool administer ed, entered into emr, scored and discussed, time greater than 7.5 minutes Sinusitis 20930403 J32.9 Has been 6 days, does not appear bacterial at this time, recommend symptomati c management . Pt to contact the office if no improvemen t or any worsening symptoms Obesity 170845967 E66.9 Elevated blood-pressure reading without diagnosis of hypertension 868360476 R03.0 Pt feels bp elevated today due to Sudafed use, declines returning to bp clinic to recheck [id number] Jaiden Baker MD , [facility], [address] [place] [address] 03/03/2022 09:58:08 03/04/2022 16:45:53 Pain of right knee joint 8076234265 61800 M25.561 s/p total R knee replacemen t about 12 years ago with progressiv e pain x several weekswill obtain updated weight bearing xrays and likely send to orthopedic s for consult, possible PT in the interim pending results and pain level, could also consult with Dr. Hale inue OTC care - rest, ice/heat, tylenol addendum 03/03 1503: pt returned to office for xrays in tears due to pain. saw pt again in room and discussed tramadol short term to take in conjunctio n (alternati ng) with the tylenol. New medication was discussed today with patient including risks, benefits, possible and expected side effects. Patient understand s and is willing to begin medication as prescribed . Close f/u next week. Instructed to call tomorrow if pain uncontroll ed. Will call with xray results when in. Elevated blood-pressure reading without diagnosis of hypertension 758843680 R03.0 above goal today, no HTNsuspect due to acute knee concerns as abovewill reassess once feeling better/abiola n for the knee is establishe d [id number] Antonio Bonilla MD Sports Medicine, [address] [address] 03/09/2022 14:17:56 03/16/2022 13:09:52 Pain of right knee joint 3549907496 83973 M25.561 Aylin is a 66-year-ol d female with exacerbati on of chronic right knee pain that I believe is due to arthrofibr osis and problems with her prosthesis . Her recent x-rays reveal no evidence of periprosth etic fracture or obvious loosening. She does appear to have chronic loss of full flexion that has been present for many years. A periprosth etic infection seems rather unlikely with today's clinical exam with her significan tly increased pain I have advised that she have inflammato ry markers checked. I advised overall that I am not the best person to evaluate her knee pain post total knee arthroplas ty and advised returning to Dr. Hernández. She did not feel she had a good interactio n with him would like to see another provider and was given a referral to [facility]. She will plan to call to set up an appointmen t. If her blood work is concerning for an infection I will work to expedite this appointmen t for her. At this point, unfortunat bharti I do not feel that much in addition to offer her although I am always happy to see her back as needed.I did review office notes from Dr. Hernández when he evaluated her several years ago as part of the office visit. [id number] Jaiden Baker MD , [facility], [address] [place] [address] 03/10/2022 09:54:38 03/10/2022 10:29:11 Elevated blood-pressure reading without diagnosis of hypertension 485876664 R03.0 above goal today, no hx HTNwill reassess once feeling better/abiola n for the knee is establishe d Pain of ri ght knee joint 1877416310 72140 M25.561 exam stablespor ts medicine consult note reviewedla bs cbc, esr reviewed with pt and WNL, crp still pending - reassuranc e givenf/u with [facility] as planned, referral changed to stat given severe pain, encouraged pt to call today/mikeymick khan to scheduleco ntinue conservati ve care in the interim including tylenol regimen, tramadol as needed for severe pain, she has enough to get her through the weekend [id number] Jaiden Baker MD , [facility], [address] [place] [address] 03/06/2023 09:01:52 03/08/2023 07:14:20 Adult health examination 198231849 Z00.00 Depression screening 171 723961 Z13.31 depression screening tool administer ed. no concerns. Screening for alcohol abuse 350809029 Z13.39 Alcohol use screening tool administer ed. does not drink alcohol, no concerns. Active or passive immunization 919775129 Z23 shingles-p t states they gotpneumo- pt states they got Obesity 460804393 E66.9 continue working on diet/exerc ise as discussedc all if interested in seeing nutrition Pain of ri ght knee joint 2783967823 80911 M25.561 recent ortho consult note reviewed, only mentions her R wrist as below/no mention of the knee, per pt she's not a good candidate for surgery and declines second opinoin at this timeencour aged her to consider second opinion and PT in the interim to help with gait training (w/ cane/walke r), she will call if interested Elevated blood-pressure reading without diagnosis of hypertension 394806188 R03.0 typically above goal in office due to white coat HTNno hx HTN/not on medication leny have staff call next week to reassess home readings Carpal kassie rebekah syndrome of right wrist 7843211132 65786 G56.01 pending surgery, has consult later this week Hypertriglyceridemia 302 191904 E78.1 [facility] Counseled by member of primary health care team 014822650 Z71.9 Today we discussed ways to reduce your 10-year cardiovasc ular disease risk. Things that decrease risk for cardiovasc ular events include eating a diet high in fiber (fruits and vegetables ) and low in simple carbohydra kimberli (bread, rice, pasta, alcohol, potatoes), decreasing processed foods, limiting juice and alcohol, limiting saturated fats (butter, ice cream, and cheeses), and adding regular daily activity. Having blood pressure that is <130/80. Having well controlled cholestero l (LDL and triglyceri charito) by eating a healthy diet and taking medication s when necessary. Managing daily stress with meditation or yoga. Depending on your other cardiovasc ular risks your practition er may recommend taking daily aspirin. [id number] Jaiden Baker MD , [facility], OFF[address] [place] [address] 04/20/2023 10:40:25 04/21/2023 14:42:08 Dysuria [id number] R30.0 Patient with urinary symptoms.H istory and exam and urinalysis consistent with UTI. TReat w/ Bactrim for 3-7 days. Take probiotics . If concerns return? early symptoms of pyelonephr itis. Will give longer courseLow risk of . Will send urine for culture.Di scussed supportive and preventive measures.P atient instructed to follow up if not better or with new symptoms. Active or passive immunization [id number] Z23 shingles-p atient got both doses History of calculus of kidney [id number] Z87.442 If symptoms nolt resolved with antibiotic s needs u/s for KUB to eval bladder [id number] AIDEE CASTELLANO , [facility], [address] [place] [address] 01/19/2024 08:35:27 01/19/2024 10:32:07 Screening mammography 93623890 Z12.31 Postmenopausal state 764 87948 Z78.0 Pain in both feet 850876 1361 8404144 M79.671 No swelling, no evidence of heart failure. Pain does not fit the pattern of plantar fasciitis, suspect it is more arthritis related. Will have her go back for new orthotics. Continue cushioned shoes, rest, Tylenol - call if anything changes. Hypertriglyceridemia 302 069579 E78.2 Requests refill of fenofibrat e Osteoarthritis 924744390 M19.90 Significan t arthritis at baseline. Continue tylenol ES, advised she make a follow up with PCP as she reports her arthritis is worsening in multiple sites of her body. [id number] JF NICK , [facility], [address] [place] [address] 06/07/2024 14:51:11 06/07/2024 16:04:40 Active or passive immunization [id number] Z23 Screening mammography 24 565869 Z12.31 has appt Postmenopausal state 764 10143 Z78.0 has appt for bone density Elevated blood-pressure reading without diagnosis of hypertension 283523418 R03.0 BP stable and at goal < 130/80 - fluctuates Recent labs 06/06/24: GFR wnlContinu e low salt diet, home BP monitor - send readings in 2 weeks Continue to strive for/ maintain a healthy weight by engaging in 150 weekly minutes of aerobic exercise and consuming a diet low in sodium. When you take in lots of sodium, your body will retain water and this will raise your blood pressure. Consider looking into the DASH diet. A diet that is rich in fruits, vegetables , legumes, and low-fat dairy products and low in snacks, sweets, and red meats can help to lower your blood pressure. Burn of skin 421060538 T 30.[address] refill topical Anterior c hest wall pain 931782639 R07.89 Right sided chest tenderness x weeks, worse with movementAd mittedly exerting self last week with groceries, cleaningDi scharged from [facility] ER 06/06/24 after normal EKG, labs incl. troponin and D-dimerImp roved today with heat, restH&P c/w likely muscular etiology - continue Tylenol, heat, restRTO if symptoms persist or worsen, if you develop any crushing chest pain or SOB Nocturia 087412353 R35.1 Increasing ly frequentA1 c 2022 prediabeti c - repeatAdvi se limiting fluids at night, scheduled bathroom tripsHX stonesMay want to get PVR if persists Prediabetes 350664579 R7 3.03 [id number] Jaiden Baker MD , [facility], [address] [place] [address] 06/10/2024 14:55:47 06/11/2024 18:16:05 [id number] Jaiden Baker MD , [facility], [address] [place] [address] 07/02/2024 09:25:45 07/02/2024 10:07:34 Active or passive immunization 334277559 Z23 Vaccines updated from [facility] 06/28/24 cc Postmenopausal state 764 80071 Z78.0 Bone Density ordered 01/19/24 cc Essential hypertension 63118247 I10 BP above goal <130/80in ED 06/06 for chest pain - EKG at that time reviewed and sinus rhythmrec medication , she's willing to start. will trial losartan, New medication was discussed today with patient including risks, benefits, possible and expected side effects. Patient understand s and is willing to begin medication as prescribed .encourage d to take BP readings at home after starting losartan, once a week is fine to limit anxiety around checkingwi ll obtain updated labs prior to f/u 1 mo Prediabetes 298831775 R7 3.03 recheck a1c with labs [id number] RADHIKA BILLINGS PA-C , [facility], [address] [place] [address] 09/05/2024 11:02:44 09/05/2024 12:54:31 Postmenopausal state 32337328 Z78.0 Ordered 01/19/24, pt no longer interested 09/05/24 cc Essential hypertension 16045324 I10 BP above goal but is improvedan xiety could be contributi ngdeclines to increase/a lter her medication at this timewill continue 150mg irbesartan for nowcontinu e home checks/log gingf/u 1 month to reassessla bs reviewed - WNL Anxiety 28464714 F41.9 stress/anx iety related to son's mental health, he's currently in the [facility], she declines but will reach out if she changes her mind Hypertriglyceridemia 302 263427 E78.2 stable, continue fenofibrat ewill continue to monitor Impaired f asting glycemia 829764884 R73.01 no longer in pre diabetic range!will continue to monitor [id number] RADHIKA BILLINGS PA-C FP, [facility], [address] [place] [address] 11/07/2024 10:45:55 11/07/2024 11:31:36 Postmenopausal state 67709510 Z78.0 Ordered 01/19/24, pt no longer interested 09/05/24 cc, not interested 11/07/24 cc Essential hypertension 81966080 I10 BP avg above goalhigh daily stress contribute s (130s/70s when not stressed)r ec to increase to 300mg irbesartan , she declines and will continue the 150mg dose; declines alternativ e medication optionscon tinue home checks/log gingf/u 2-[address] labs WNL Anxiety 84633109 F41.9 high stress/anx iety mainly related to son's mental health, he's no longer living with them [facility] and offered again today, she declines but will reach out if she changes her mind Pain of ri ght knee joint [id number] 36240 M25.561 s/p knee replacemen t in 50s and has had issues sincewas following with [facility], declines to f/u with them, [facility], or Dr. Jane repeat xray, last done in 2022encour aged to consider PT and call if interested in referral Dysfunctio n of bilateral eustachian tubes [id number] 841085 H69.93 - symptoms consistent with ETD- reassuranc e given- recommende d consistent use of Flonase (1 spray per nostril twice daily) for a minimum of 2 weeks to open the eustachian tubes; can also trial daily antihistam ine- discussed may take several weeks to clear/impr ove, call if worsening [id number] OMID WRIGHT , [facility], [address] [place] [address] 11/22/2024 15:06:08 11/22/2024 17:13:02 Screening mammography 15953635 Z12.31 Has scheduled 11/22/24 SD Postmenopausal state 764 08662 Z78.0 Ordered 01/19/24, pt no longer interested 09/05/24 cc, not interested 11/07/24 cc Declines 11/22/24 SD Essential hypertension 32298954 I10 BP above goalhigh daily stress contribute s (130s/70s when not stressed)r ec to increase to 300mg irbesartan , she declines and will continue the 150mg dose; declines alternativ e medication optionscon tinue home checks/log gingf/u as scheduled in a few months to check inlast labs WNL Anxiety 52707445 F41.9 high stress/anx iety mainly related to son's mental health, he's no longer living with them which [facility] and offered again today, she declines but will reach out if she changes her mind Pain of ri ght knee joint 1778699877 22544 M25.561 s/p knee replacemen t in 50s and has had issues sincewas following with [facility], declines to f/u with them, [facility], or Dr. Castillo at imaging reassuring - WNL Pain of ri ght hip joint 9158059660 84691 M25.551 worsening RLE pain with notable discomfort with hip ROMR knee xrays reviewed and WNL s/p surgerywil l order additional hip/pelvis and SI imaging and f/u thereafter call in the interim with any worsening symptoms [id number] Jaiden Baker MD , [facility], [address] [place] [address] 02/07/2025 10:59:45 02/07/2025 11:32:01 Pain of right hip joint 7702757878 74758 M25.551 Been following with ortho, recently had MRI, patient states showed something with her back and will be going for injections next week with their pain mangement team- will request records from ortho and get MRI report- continue to follow up with ortho regarding symptoms- feel free to reach out in the meantime with any worsening symptoms- continue OTC care Pain of ri ght knee joint [id number] 87560 M25.561 - been following with ortho- see plan above Essential hypertension 84675323 I10 BP at goal in office today- high daily stress contribute s to higher BP at home- continue current dose of irbesartan - continue home checks/log ging- f/u in a few months to check in Anxiety 70709597 F41.9 high stress/anx iety mainly related to son's mental health, he's no longer living with them which [facility] and offered again today, she declines but will reach out if she changes her mind Health Concerns Section Related Observation LastModified by Organization Delmer ls LastModified Time None Recorded Concern Status LastModified by Organization Details LastModified Time None Recorded Advance Directives Directive None Recorded Payers Insurance Date Sequence Insurance Name Policy Number Policy Kelly Covered Member ID Kelly Member ID Guarantor Name 02/06/2025 1 [place] [facility] [place] [id number] Len Yumiko Robert Gee [id number] Aylin Jones Notes Date Note Type Note Provider Name and Address Organization Details Recorded Time 07/02/2024 text/html 07/02/24-here fo r BP f/u has anxiety around taking BP readings at homefelt dizzy, stopped taking BP at home and feels mymlur05/8 - 153/83, 163/9510/12 - 144/86, 152/9110/13 - 135/77, 154/82 seen in ER for chest pain 06/06 w/ reassuring workup Patient has agreed to allow the participation of a professional student in today? s visit. This consent allows for a professional student to: gather medical history, review present medications, review past medical history and complaints, perform non-sensitive parts of physical exam without supervising practitioner present, and participate in discussion with patient and practitioner of diagnosis and treatment plans. Student name: Tisha Type: PA Patient presents to office today for evaluation of chest pain.Chest pain improved a lot better today. 2/3 out of 10 pain. Right-sided over breast. Tender/ sore. Intermittent. Worse with bending down, tying shoes, deep breathNo pain with reclination. Not worsened by exertion, eating.Intermittent tenderness x last few weeks. Worst yesterday and so presented to ER.Does load heavy grocery bags. Was also cleaning closet last week.No SOB, palpitations.Soothing with heating pad. Takes Tylenol for R knee arthritis.No nipple discharge. No abnormal mammogram in the past.Diet: limits sodiumExercise: limited by pain d/t arthritis Nocturia worsening. Gets up 3-4x nightly to use bathroom. Nickolas Guerra MD [address] [place] [address], [phone], [facility] 07/02/2024 10:46:05 09/05/2024 text/html 09/05/24- BP f/u taking losartan qhs; notes some leg itching but unsurehome BP readings ranging from sys 140s-150s/ el[place] 80s-90s most recent 144/81. does have a few low 130s /high 70schecking twice daily during week days reports alot of problems w/ 36 yo son which causes anxietyhe's been living on his own x6-7 yrs but they (his parents) pay for his apartment and expensestook him to ER last night, supposed to get admitted to facility but waiting to hear back; he's currently still at the hospital 07/02/24-here for BP f/u has anxiety around taking BP readings at homefelt dizzy, stopped taking BP at home and feels crgpif98/8 - 153/83, 163/9510/12 - 144/86, 152/9110/13 - 135/77, 154/82 seen in ER for chest pain 06/06 w/ reassuring workup Patient has agreed to allow the participation of a professional student in today? s visit. This consent allows for a professional student to: gather medical history, review present medications, review past medical history and complaints, perform non-sensitive parts of physical exam without supervising practitioner present, and participate in discussion with patient and practitioner of diagnosis and treatment plans. Student name: Tisha Type: JF Patient presents to office today for evaluation of chest pain.Chest pain improved a lot better today. 2/3 out of 10 pain. Right-sided over breast. Tender/ sore. Intermittent. Worse with bending down, tying shoes, deep breathNo pain with reclination. Not worsened by exertion, eating.Intermittent tenderness x last few weeks. Worst yesterday and so presented to ER.Does load heavy grocery bags. Was also cleaning closet last week.No SOB, palpitations.Soothing with heating pad. Takes Tylenol for R knee arthritis.No nipple discharge. No abnormal mammogram in the past.Diet: limits sodiumExercise: limited by pain d/t arthritis Nocturia worsening. Gets up 3-4x nightly to use bathroom. Nickolas Guerra MD [address] [place] [address], [phone], [facility] 09/05/2024 12:44:15 11/07/2024 text/html 11/07/24- BP f/u when stress is high BP is high, home readings 130s-160s systolicson is doing better but continues to talk poorly to her and her ; he's no longer living w/ them which has helpedusing mail order pharmacy - frustrated with process which has contributed to her stress levels, talked w/ remote encoding operations supervisor and hopes it will be straightened outgetting new counters - kitchen torn up, has also contributed to stressR knee has been more bothersomewants ears checked, bothersome on/off 09/05/24- BP f/u taking losartan qhs; notes some leg itching but unsurehome BP readings ranging from sys 140s-150s/ [place] 80s-90s most recent 144/81. does have a few low 130s /high 70schecking twice daily during week days reports alot of problems w/ 36 yo son which causes anxietyhe's been living on his own x6-7 yrs but they (his parents) pay for his apartment and expensestook him to ER last night, supposed to get admitted to facility but waiting to hear back; he's currently still at the hospital 07/02/24-here for BP f/u has anxiety around taking BP readings at homefelt dizzy, stopped taking BP at home and feels vyjqkk07/8 - 153/83, 163/9510/12 - 144/86, 152/9110/13 - 135/77, 154/82 seen in ER for chest pain 06/06 w/ reassuring workup Patient has agreed to allow the participation of a professional student in today? s visit. This consent allows for a professional student to: gather medical history, review present medications, review past medical history and complaints, perform non-sensitive parts of physical exam without supervising practitioner present, and participate in discussion with patient and practitioner of diagnosis and treatment plans. Student name: Tisha Type: JF Patient presents to office today for evaluation of chest pain.Chest pain improved a lot better today. 2/3 out of 10 pain. Right-sided over breast. Tender/ sore. Intermittent. Worse with bending down, tying shoes, deep breathNo pain with reclination. Not worsened by exertion, eating.Intermittent tenderness x last few weeks. Worst yesterday and so presented to ER.Does load heavy grocery bags. Was also cleaning closet last week.No SOB, palpitations.Soothing with heating pad. Takes Tylenol for R knee arthritis.No nipple discharge. No abnormal mammogram in the past.Diet: limits sodiumExercise: limited by pain d/t arthritis Nocturia worsening. Gets up 3-4x nightly to use bathroom. RADHIKA BILLINGS PA-C [address] [place] [address], [phone], [facility] 11/07/2024 11:21:05 11/22/2024 text/html 11/22/24 c/o ongo ing R leg issues, see case #[id number]. SD feels pain she thought was her knee might not be her kneewhen going from bending to standing up, getting socks on, drying off after shower painfulpain starts around R knee, can be all the way down, radiates up to R hip and buttocksfeels area more or less gives outno issues w/ walking normally RADHIKA BILLINGS PA-C [address] [place] [address], [phone], [facility] 11/22/2024 15:40:02 02/07/2025 text/html 02/07/25 69 year old patient presenting for HTN follow up. Back/Hip/Knee Pain- chronic problem, ongoing- seeing ortho, reporting MRI showed back injury- planning to get injections next week Hypertension- recent BP at home 145/84, another 165/90, averaging 140s-150s systolic- exercise limited by mobility and chronic pain- diet - fruits, protein, not eating much vegetables, no fast food- taking irbestartan as prescribed- denies vision changes, headaches, chest pain, SOB, abd pain, N/V/D, numbness/tingling Anxiety- high stress at home with family related issues Patient has agreed to allow the participation of a professional student in today? s visit. This consent allows for a professional student to: gather medical history, review present medications, review past medical history and complaints, perform non-sensitive parts of physical exam without supervising practitioner present, and participate in discussion with patient and practitioner of diagnosis and treatment plans. Student name: Ish Type: JF 11/22/24 c/o ongoing R leg issues, see case #[id number]. SD feels pain she thought was her knee might not be her kneewhen going from bending to standing up, getting socks on, drying off after shower painfulpain starts around R knee, can be all the way down, radiates up to R hip and buttocksfeels area more or less gives outno issues w/ walking normally 11/07/24- BP f/uwhen stress is high BP is high, home readings 130s-160s systolicson is doing better but continues to talk poorly to her and her ; he's no longer living w/ them which has helpedusing mail order pharmacy - frustrated with process which has contributed to her stress levels, talked w/ remote encoding operations supervisor and hopes it will be straightened outgetting new counters - kitchen torn up, has also contributed to stressR knee has been more bothersomewants ears checked, bothersome on/off 09/05/24- BP f/u taking losartan qhs; notes some leg itching but unsurehome BP readings ranging from sys 140s-150s/ [place] 80s-90s most recent 144/81. does have a few low 130s /high 70schecking twice daily during week days reports alot of problems w/ 36 yo son which causes anxietyhe's been living on his own x6-7 yrs but they (his parents) pay for his apartment and expensestook him to ER last night, supposed to get admitted to facility but waiting to hear back; he's currently still at the hospital 07/02/24-here for BP f/u has anxiety around taking BP readings at homefelt dizzy, stopped taking BP at home and feels rdpxyj92/8 - 153/83, 163/9510/12 - 144/86, 152/9110/13 - 135/77, 154/82 seen in ER for chest pain 06/06 w/ reassuring workup Patient has agreed to allow the participation of a professional student in today? s visit. This consent allows for a professional student to: gather medical history, review present medications, review past medical history and complaints, perform non-sensitive parts of physical exam without supervising practitioner present, and participate in discussion with patient and practitioner of diagnosis and treatment plans. Student name: Tisha Type: JF Patient presents to office today for evaluation of chest pain.Chest pain improved a lot better today. 2/3 out of 10 pain. Right-sided over breast. Tender/ sore. Intermittent. Worse with bending down, tying shoes, deep breathNo pain with reclination. Not worsened by exertion, eating.Intermittent tenderness x last few weeks. Worst yesterday and so presented to ER.Does load heavy grocery bags. Was also cleaning closet last week.No SOB, palpitations.Soothing with heating pad. Takes Tylenol for R knee arthritis.No nipple discharge. No abnormal mammogram in the past.Diet: limits sodiumExercise: limited by pain d/t arthritis Nocturia worsening. Gets up 3-4x nightly to use bathroom. RADHIKA BILLINGS PA-C [address] [place] [address], [phone], [facility] 02/07/2025 12:14:25 OBGyn Episode No OBEpisode recorded.
== END 2025-02-13 10:24 | disposition home or self-care (01) ==
LOC: HO.PMC 09:42
PROVIDERS: PCP Physician Assistant; Referring Provider Neurological Surgery; Visit Provider Nurse Practitioner Family
DX: M54.50 Low back pain, unspecified (principal); M62.830 Muscle spasm of back; M46.1 Sacroiliitis, not elsewhere classified; M51.369 Other intervertebral disc degeneration, lumbar region without mention of lumbar back pain or lower extremity pain; M47.817 Spondylosis without myelopathy or radiculopathy, lumbosacral region
CPT/HCPCS: 99204

== ENCOUNTER 2025-02-19 09:16 | Outpatient (REF) | payer BC, SELFPAY ==
--- OUTSIDE RECORDS SUMMARY | 2025-02-19 10:10 | XMS_ITS | Data Portability ---
Author Organization [facility], , [facility] Address [address] [place] [address] Care Team Providers Care Marketing Producer Name Role Phone TOMAS MCCORMACK Orthopedic Surgeon [phone] ARIADNE MITCHELL Orthopedic Surgeon [phone] TONE GARY Airline Pilot/First Officer FRANCIA NORRIS Quality Systems Technician RADHIKA BILLINGS Primary Care Provider TAISHA COX Instructional Design Consultant Assessment No assessment recorded. Plan of Treatment Reminders Order Date Submit Date Provider Last Modified By Organization Details Last Modified Time Details Appointments Foll ow Up, 15 2024 11:00A M RADHIKA BILLINGS PA-C Not available Not available Not available Mamm ogra m, Scre enin g 2024 11:30A M [facility] Mammography Not available Not available Not available Lab None ian rded . Referral None ian rded . Procedures None ian rded . Surgeries None ian rded . Imaging XR, hip + pelv is, unil ater al, 2 or 3 view - R hip pain wors enin g 2024 025 [facility] (Imaging), [address], [place], [address], 11/25/2024 11:36:35 XR, sacr oili ac join t(s) - radi atin g R hip pain wors enin g. 2024 025 [facility] (Imaging), [address] [place], [address], 11/25/2024 11:39:42 XR, knee , weig htbe jhonny g - wors enin g R knee pain , s/p knee repl acem ent in 50s 2024 025 [facility] (Imaging), [address], [place], [address], 11/07/2024 13:29:35 Medication Orders irbe sart an 150 mg tabl et 2024 025 atul luna [facility], [facility], [place], [address], 09/05/2024 12:44:13 losa rtan 25 mg tabl et 2023 024 [facility], [facility], [place], [address], 07/23/2024 09:15:11 Patient TargetsNo targets recorded. Patient InstructionsNo instructions recorded. Reason for Referral None Reported. Results Created Date Observation Date Name Description Value Unit Range Abnormal Flag Note LastModifiedBy Organization Detail LastModifiedTime 08/30/2008/30/2024 LIPID PANEL cholesterol 198 mg/dL <200 mg/dl Sosa able 200-2 39 mg/dl Borde rline High >240 mg/dl High Not Available [address], [address], 08/30/2024 14:06:11 08/30/20 24 08/30/2024 LIPID PANEL triglyceride s 227 mg/dL <150 mg/dL Rona l 150-1 99 mg/dL Borde rline High 200-4 99 mg/dL High >500 mg/dL Very High Not Available [address], [address], 08/30/2024 14:06:11 08/30/20 24 08/30/2024 LIPID PANEL direct HDL 42 mg/dL <40 mg/dl - Major Risk for CHD >60 mg/dl - Negat masha Risk for CHD Not Available [address], [address], 08/30/2024 14:06:11 08/30/20 24 08/30/2024 LDL - CALCU LATED LDL - calculated 111 RISK CATEG ORY LDL GOAL _ CHD or CHD Risk Equiv alent s <100 mg/dl (10-y ear risk >20%) 2+ Risk Facto rs <130 mg/dl (10-y ear risk <= 20%) 0-1 Risk Facto r <160 mg/dl Almo st all peopl e with 0-1 risk facto r have a 10 year risk <10%, thus 10 year risk asses ment in peopl e with 0-1 risk facto r is not neces kiara. Not Available [address], [address], 08/30/2024 14:06:12 08/30/20 24 08/30/2024 BASIC METAB OLIC PANEL glucose 107 mg/dL 70-100 high Not Available [address], [address], 08/30/2024 14:12:15 08/30/20 24 08/30/2024 BASIC METAB OLIC PANEL BUN 18 mg/dL 7-18 Not Available [address], [address], 08/30/2024 14:12:15 08/30/20 24 08/30/2024 BASIC METAB OLIC PANEL creatinine 0.8 mg/dL 0.8-1. 3 Not Available [address], [address], 08/30/2024 14:12:15 08/30/20 24 08/30/2024 BASIC METAB OLIC PANEL B/C 22.5 ratio Not Available [address], [address], 08/30/2024 14:12:15 08/30/20 24 08/30/2024 BASIC METAB [...] Colla borat ion (CKD- EPI) Equat ion (Sonia r et. al 2020) as recom dakota d by the Natio nal Kidne y Found ation . eGFR is based on age, serum creat inine , and sex. CKD-E PI does not calcu late eGFR by race, does not apply to child gwen (age <18 years ), and shoul d not be used in pregn isabell. Not Available [address], [address], 08/30/2024 14:12:15 08/30/20 24 08/30/2024 BASIC METAB OLIC PANEL sodium 143 mmol/ L 136-14 5 Not Available [address], [address], 08/30/2024 14:12:15 08/30/20 24 08/30/2024 BASIC METAB OLIC PANEL potassium 4.2 mmol/ L 3.5-5. 1 Not Available [address], [address], 08/30/2024 14:12:15 08/30/20 24 08/30/2024 BASIC METAB OLIC PANEL chloride 107 mmol/ L 96-107 Not Available [address], [address], 08/30/2024 14:12:15 08/30/20 24 08/30/2024 BASIC METAB OLIC PANEL anion gap 13.7 5.0-15 .0 Not Available [address], [address], 08/30/2024 14:12:15 08/30/20 24 08/30/2024 BASIC METAB OLIC PANEL CO2 26 mmol/ L 21-32 Not Available [address], [address], 08/30/2024 14:12:15 08/30/20 24 08/30/2024 BASIC METAB OLIC PANEL calcium 9.0 mg/dL 8.5-10 .3 Not Available [address], [address], 08/30/2024 14:12:15 08/30/20 24 08/30/2024 HGB A1C [...] furth er confi rmati on Not Available [address], [address], 08/30/2024 14:16:01 08/30/20 24 08/30/2024 HGB A1C estimated average glucose 114.0 mg/dL Not Available [address], [address], 08/30/2024 14:16:01 06/27/20 24 06/27/2024 MAMMO , scree cheng, tomos ynthe sis, bilat eral MAMMO, SCREEN , MIKEY, BILAT: 2023. BI-RAD S: 1 CLINIC AL: 69-yea r old Female for Bilate ral Screen ing Mammog nakita. Radha Gamboa lifeti me risk of 8.4%. No person al or first- degree family histor y of breast cancer . Curren t report ed family histor y of breast [...] of fibrog landul ar densit y. MAMMOG JONANA FINDIN GS Bilate ral: No suspic ious [...] Yrn valiente Physic wilfrido: Melecio Son [email or web address] [facility] (Imaging) [address] [place], [address], 06/27/2024 14:54:26 11/08/19 25 11/07/2024 XR, knee, [...] . Yrn valiente Physic wilfrido: Melecio Son [email or web address] [facility] (Imaging) [address] [place], [address], 11/21/2024 09:20:44 11/26/19 25 11/25/2024 XR, hip [...] report . Yrn valiente Physic wilfrido: Randall Maldonado [facility] (Imaging) [address] [place], [address], 11/26/2024 13:54:31 11/26/19 25 11/25/2024 XR, sacro [...] abnorm ality. Yrn valiente Physic wilfrido: Randall Maldonado [facility] (Imaging) [address] [place], [address], 11/26/2024 13:54:32 02/15/20 25 12/19/2024 MRI, lumba r spine , w/o contr ast No observ ation record ed. [email or web address] Not Available 2024 08:21:09 Result Notes Documentation Provider Name and Address Organization Details Recorded Time Xr, Knee, Weightbearing : CLINICAL HISTORY: Right knee pain. TECHNIQUE: AP, oblique and lateral views of the right knee obtained. COMPARISON: March 03, 2022 FINDINGS: There is no fracture or subluxation.. Patient is status post right total knee arthroplasty. Alignment is anatomic. There is no evidence of loosening. There is no effusion.. IMPRESSION: Status post right total knee arthroplasty. No abnormality.. Reading Physician[facility] 11/21/2024 09:20:45 Xr, Hip + Pelvis, Unilateral, 2 Or 3 View : CLINICAL HISTORY: Radiating right hip pain worsening. TECHNIQUE: Two views of the right hip are obtained. An AP view of the pelvis. 3 images. Additional information: Patient had extreme difficulty positioning for frog-leg lateral. FINDINGS: No acute fracture seen. No right hip dislocation seen. Subjectively minimal osteoarthritic changes within the right hip. Degenerative changes within the spine. IMPRESSION: No acute bony abnormality seen. Please see body of report. Reading Physician: Randall Ashford Not Available [facility] 11/26/2024 13:54:31 Xr, Sacroiliac Joint(s) : CLINICAL HISTORY: Radiating right hip pain worsening TECHNIQUE: 3 views of the sacrum, coccyx and sacroiliac joints are obtained. 3 images. COMPARISON: Pelvis/right hip radiograph same day. FINDINGS: No acute fracture seen. Some degenerative changes within the spine. No sacroiliac joint dislocation. IMPRESSION: No acute bony abnormality. Reading Physician: Randall Ashford Not Available [facility] 11/26/2024 13:54:32 Problems Name Problem SNOMED Code Status Onset Date Resolution Date Notes Provider Name and Address Organization Details Recorded Time Mixed hyperlip idemia 972361354 Completed 11/26/2015 Justine Weston D.O. [address] [place] [address] [place], [address], [facility] 11:49:47 Abnormal gait 19351049 Completed 11/26/2015 Justine Weston D.O. [address] [place], [place] [address], [address], [facility] 11:49:47 Kidney stone 78227958 Active JF Richards [address] [place], [place] [address], [address], [facility] 11:52:44 Osteoart hritis of joint of hand 93014372 JF Paul [address] [place], [place] [address] [place], [place], [address], [facility] 11:52:48 Polyp of colon 19496854 Active 2016 adenomat ous polyp, last colo 01/2018 repeat 3 yrs JF Richards [address] [place], [place] [address], [address], [facility] 11:52:52 Obesity 458769162 Active 2017 JF Richards [address] [place], [place] [address], [address], [facility] 2 11:52:38 Osteoart hritis 337578227 Active 2021 JF Julio [address] [place], [place] [address], [place], [address], [facility] 2 10:27:01 Pain of right knee joint 83602722085 4100 Active 2022 s/p total replacme nt. JF Julio [address] [place], [place] [address], [address], [facility] 09:27:20 Carpal tunnel syndrome of right wrist 67282436251 9108 Active 2022 JF Julio [address] [place], [place] [address]Mary, [place], [address], [facility] 09:27:37 Hypertri glycerid emia 320023116 Active 2022 JF Julio [address] [place] [address] [place], [address], [facility] 3 09:40:55 Impaired fasting glycemia 002020885 Active 2022 JF Julio [address] [place] [address] [place], [address], [facility] 15:40:39 Prediabe kimberli 330171164 Active 2022 JF Julio [address] [place], [place] [address], [address], [facility] 11:26:08 Chest pain 92703702 Active 2023 [facility] 4 10:06:59 Essentia l hyperten keli 03052307 Active 2023 JF Julio [address] [place] [address], [address], [facility] 4 10:03:30 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 Procedures Surgical History Date Name Laterality Status Provider Name and Address Organization Details Recorded Time 023 Medicare Wellness Visit completed Tabitha Torres MA [facility] 03/06/2023 08:47:08 023 Cardiovascular disease risk reduction counseling completed JF Julio [address] [place] [address], [address], [facility] 03/06/2023 09:50:21 022 Medicare Wellness Visit completed Thi Armendariz MA [facility] 11/23/2021 16:23:42 018 Colonoscopy completed Maurice Freeman NP [address] [place] [address], [address], [facility] 02/06/2018 19:32:13 016 Michael - Colonoscopy completed Adonis Rodriguez MD [address] [place] [address], [address], [facility] 07/18/2016 08:07:[address] LPN [facility] 06/08/2012 09:40:06 Total Hysterectomy completed Yasmin Lacy LPN [facility] 06/08/2012 08:53:54 Tonsillectomy completed Yasmin Lacy LPN [facility] 06/08/2012 08:53:54 Cystourethroscopy completed Yasmin Lacy LPN [facility] 06/08/2012 09:40:06 Imaging Results None recorded. Procedure Notes None recorded. Medical Equipment None Reported. Allergies Allergen ID Allergen Name Allergen Category Reaction Reaction Severity Criticality Documentation Date Start Date Code Code System Note Provider Name and Address Organization Details Recorded Time 265179 Aleve medicatio n itching Not available Not available 06/05/2012 32856 1 RxNorm Aleve -D Jana Salmeron [facility] 2 14:01:43 073223 Product containin g penicilli n (product) medicatio n Not available Not available Not available 06/05/2012 79928 8001 SNOMED Monet Green [facility] 2 11:03:18 247567 Keflex medicatio n nausea Not available Not available 06/05/201252868 7 RxNorm Monet Green [facility] 2 11:03:18 194528 Macrodant in medicatio n Not available Not available Not available 06/05/2012 4 RxNorm Monet Green [facility] 2 11:03:18 053391 Iodinated contrast media (substanc e) medicatio n respirato ry distress Not available Not available 06/08/2012 40748 2004 SNOMED Yasmin Lacy LPN [facility] 2 08:56:47 147586 losartan medicatio n Not available Not available Not available 07/09/2024 46899 RxNorm dizzy /upse t stoma ch JF Julio [address] [place], [place] [address], [address], [facility] 11:31:52 438893 lisinopri l medicatio n Not available Not available Not available 07/30/2024 52598 RxNorm cough RADHIKA BILLINGS PA-C [address] [place], [place] [address], [address], [facility] 4 10:46:48 Medications Name Sig Start Date [...] MODERATE PAIN. 06/07 completed Not taking 01/19/24 [place] 024- not taking, per pt TR/RMA Not [...] % eye drops in a dropperet te 11/24 completed not taking 11/24/21 [place] Not [...] Updated DateTime 5 175.26 cm 30.5 kg/m2 67942.4 3 g 97 % 97 % 74 /min 148 mm[Hg] 86 mm[Hg] 144 mm[Hg] 81 mm[Hg] Karen Summers MA [facility] 5 11:16:01 Date Recorded Body height Oxygen saturation Oxygen saturation in Arterial blood by Pulse oximetry Heart rate Body mass index (BMI) Body weight Systolic blood pressure Diastolic blood pressure Systolic blood pressure Diastolic blood pressure Provider Name and Address Organization Details Last Updated DateTime 5 175.26 cm 98 % 98 % 74 /min 30.9 kg/m2 04619.8 1 g 152 mm[Hg] 88 mm[Hg] 132 mm[Hg] 74 mm[Hg] Karen Summers MA [facility] 5 10:57:01 Date Recorded Systolic blood pressure Diastolic blood pressure Provider Name and Address Organization Details Last Updated DateTime 11/22/2024 146 mm[Hg] 90 mm[Hg] RADHIKA BILLINGS PA-C [address] [place] [address], [address], [facility] 11/22/2024 15:31:33 Date Recorded Body height Heart rate Oxygen saturation Oxygen saturation in Arterial blood by Pulse oximetry Systolic blood pressure Diastolic blood pressure Provider Name and Address Organization Details Last Updated DateTime 5 175.26 cm 74 /min 96 % 96 % 164 mm[Hg] 92 mm[Hg] Ade Montes CMA [facility] 5 15:18:13 Date Recorded Body height Body mass index (BMI) Body weight Heart rate Oxygen saturation Oxygen saturation in Arterial blood by Pulse oximetry Systolic blood pressure Diastolic blood pressure Provider Name and Address Organization Details Last Updated DateTime 5 175.26 cm 31.4 kg/m2 18250.3 8 g 74 /min 98 % 98 % 126 mm[Hg] 78 mm[Hg] Christiano [facility] 5 11:08:21 Date Recorded Body height Body mass index (BMI) Body weight Oxygen saturation Oxygen saturation in Arterial blood by Pulse oximetry Heart rate Systolic blood pressure Diastolic blood pressure Systolic blood pressure Diastolic blood pressure Provider Name and Address Organization Details Last Updated DateTime 4 175.26 cm 31.2 kg/m2 66418.9 9 g 97 % 97 % 70 /min 144 mm[Hg] 88 mm[Hg] 140 mm[Hg] 86 mm[Hg] Karen Summers [facility] 4 09:39:28 Date Recorded Systolic blood pressure Diastolic blood pressure Provider Name and Address Organization Details Last Updated DateTime 07/25/2024 140 mm[Hg] 80 mm[Hg] RADHIKA BILLINGS PA-C [address] [place] [address], [address], [facility] 07/25/2024 08:39:43 Social History Question Answer Notes LastModified by Organizat ion Details LastModified Time Tobacco Smoking Status Never Smoker [facility] 06/11/2012 14:10:46 What Is Your Level Of Caffeine Consumption? Moderate 2-4 Coke's A Day [email or web address] Information not available 06/11/2012 How Much Tobacco Do You Chew? None Information not available 06/11/2012 What Type Of Diet Are You Following? REGULAR [email or web address] Information not available 06/11/2012 Which Illicit Or Recreational Drugs Have You Used? None [email or web address] Information not available 06/11/2012 Education 12 [email or web address] Information no t available 06/11/2012 Are There Any Guns Present In Your Home? No Information not available 11/26/2015 Do You Use Insect Repellent Routinely? No [email or web address] Information not available 11/24/2021 Live Alone Or With Others? With Others [email or web address] Information not available 06/11/2012 Patient Has Health Care Proxy Signed And In Chart Yes [email or web address] Information not available 08/22/2018 MOLST Form Signed And In Chart 05/02/2023 [email or web address] Information not available 05/04/2023 Marital Status [email or web address] Informatio n not available 06/11/2012 Mosquito Repellent Used Routinely No [email or web address] Information not available 06/11/2012 What Was The Date Of Your Most Recent Tobacco Screening? 02/07/2025 [email or web address] Information not available 02/07/2025 How Many Children Do You Have? 2 Grown [email or web address] Information not available 06/11/2012 Do You Use Your Seat Belt Or Car Seat Routinely? Yes Information not available 11/24/2021 Seat Belts Used Routinely Yes [email or web address] Information not available 06/11/2012 Are You Sexually Active? No Please Do Not Ask Patient At Visits [email or web address] Information not available 12/12/2018 Smoke Alarm In Home Yes [email or web address] Information not available 06/11/2012 Do You Have Smoke And Carbon Monoxide Detectors In Your Home? Yes Information not available 11/24/2021 Are You Passively Exposed To Smoke? No [email or web address] Information not available 03/06/2023 General Stress Level High Information not available 06/11/2012 Do You Use Sunscreen Routinely? Yes As Needed [email or web address] Information not available 11/26/2015 Sex: Unknown Functional Status Question Answer Note LastModified by Organization D etails LastModified Time What is your level of alcohol consumption? 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 None Information not available 11/24/2021 Mental Status None [...] intradermal, preservative free 2 completed Not Available [facility] 09/21/2019 02:18:38 Tdap 4 completed Not Available [facility] 09/21/2019 02:16:08 Influenza, split virus, trivalent, preservative 3 completed Le[facility]ragon [facility] 11/21/2013 08:42:26 zoster live 5 completed Geovanna Juarez LPN [facility] 11/26/2015 11:08:26 influenza nasal, unspecified formulation 5 completed [facility] 11/26/2015 11:08:26 Influenza, split virus, quadrivalent, preservative 6 completed Zaida Lockhart MA [facility] 05/25/2016 11:22:41 Influenza, split virus, quadrivalent, preservative 7 completed CARLINE Lopez [facility] 05/16/2017 12:25:26 Influenza, split virus, quadrivalent, preservative 8 completed Lynette Bell MA [facility] 05/18/2018 13:47:33 Tdap 9 completed Karen Summers MA [facility] 06/28/2024 09:34:33 Influenza, split virus, quadrivalent, preservative 0 completed Evelia Stout PA-C [address] [place] [address], [address], [facility] 06/17/2020 11:08:29 Pneumococcal conjugate PCV 13 0 completed Evelia Stout PA-C [address] [place] [address], [address], [facility] 06/17/2020 11:09:05 Influenza, high-dose, quadrivalent, PF 1 completed Morena Ann [facility] 05/05/2021 15:59:04 Influenza, split virus, quadrivalent, preservative 2 completed Thi Marcello [facility] 04/26/2022 11:12:37 Influenza, adjuvanted, quadrivalent, PF 3 completed Karen Cuauhtemocgely [facility] 05/16/2023 11:30:33 Tdap 0 completed Karen Cuauhtemocgely [facility] 06/28/2024 09:35:11 Influenza, adjuvanted, trivalent, PF 4 completed Karen Chmura [facility] 06/28/2024 09:36:06 Pneumococcal conjugate PCV20, polysaccharide [id number] conjugate, adjuvant, PF 2 completed Karen Summers [facility] 06/28/2024 09:37:00 zoster recombinant 2 completed Karen Cuauhtemocgely [facility] 06/28/2024 09:37:34 zoster recombinant 2 completed Karen Cuauhtemocgely [facility] 06/28/2024 09:37:53 Past Encounters Encounter ID Performer Location Encounter Start Date Encounter Closed Date Diagnosis/Indication Diagnosis SNOMED-CT Code Diagnosis ICD10 Code Diagnosis Note [id number] Yelena Singh PA-C , [facility], OFFICE [address] [facility] [place] [address] 06/11/2012 13:50:17 06/11/2012 15:03:44 [id number] Justine Weston D.O. , [facility] [place] [address] [place] [address] 09/20/2012 13:47:13 09/20/2012 14:22:04 [id number] Jonathon Joshi MD Radiology , [facility] [address] [facility] [place] [address] 10/04/2012 10:35:55 10/05/2012 09:11:25 [id number] Justine Weston D.O. [facility], OFFICE [address] [place] [address] 11/21/2013 08:14:53 11/21/2013 08:58:02 Adult health examination 098920203 see Risk Assessment and Lifestyle Change Counseling section above Counseling [id number] Screening mammography 61801301 Hyperlipidemia 24381490 on fibrate, overdue for labs Osteoarthritis 143298284 bilat knee OA, s/p TKR in [place] 3 yrs ago. bad experience , woudl not wantto go through that surgery again. Administra tion of diphtheria, pertussis, and tetanus vaccine 839031261 [id number] Jayant Ozuna III, MD [facility], OFFICE [address] [place] [address] 12/19/2013 08:56:46 12/19/2013 09:24:06 Lumbago with sciatica 756605796 [id number] Justine Loaiza.OPeter [facility], OFFICE [address] [place] [address] 11/24/2014 08:45:43 11/24/2014 09:18:15 Adult health examination 565684105 see Risk Assessment and Lifestyle Change Counseling section above Counseling [id number] Arthritis 5619337 hand O A discussed PT/OT will consider if wants cortisone injection in wrist- gave her name of dr. echeverria Hyperlipidemia 52992968 [id number] Justine Weston D.OPeetr [facility], OFFICE [address] [place] [address] 11/26/2015 10:33:45 11/26/2015 11:51:18 Screening for disorder 332403561 Z11.59 Screening for malignant neoplasm of colon 335778429 Z12.11 Referral for a DIRECT booked colonoscop y. This patient is a healthy ASA Class 1 or 2 patient (only mild systemic disease), or a STABLE, well controlled insulin dependent diabetic. They do not have serious cardiac disease ie SD/angiopl asty within 1 year, symptomati c CHF; renal failure with CKD 4 or 5; take Coumadin, Plavix, Aggrenox, etc; nor take chronic narcotics. [Patients who take chronic narcotics should be referred to [facility] for a propofol procedure due to possible inability to sedate adequately with conscious sedation.] Bereavement 16089231 Z63 .4 of parokeet this month, very saD defers therapy, medication s Glaucoma suspect 6566952 08 H40.003 Adult heal th examination 549546980 Z00.00 see Risk Assessment and Lifestyle Change Counseling section above [id number] Len Mckeon DPM Podiatry, [address] [address] 1 02/12/2016 08:50:03 03/04/2016 15:35:23 [id number] Len Mckeon DPM Podiatry, [address] [address] 1 02/16/2016 10:35:34 02/18/2016 13:14:14 Hammer toe 776239353 M20.41 [id number] Len Mckeon DPM Podiatry, [address] [address] 03/21/2016 09:42:51 04/18/2016 16:11:40 Hammer toe 304060562 M20.41 [id number] Adonis Rodriguez MD [facility], [address] [address] 07/18/2016 06:47:08 07/18/2016 14:03:23 [id number] Sylvester Sandoval MD , [facility] [place] [address] [place] [address] 08/25/2016 08:04:22 08/25/2016 12:56:09 Acute upper respiratory infection 15203488 J06.9 Afebrile in office, no sinus tenderness [...] back. Adjustment disorder with mixed emotional features 55993715 F43.23 Pt very stressed and anxious with [...] would like to discuss any treatment options. [id number] Justine Weston D.O. , [facility] [place] [address] [place] [address] 10/12/2016 09:30:25 10/12/2016 10:10:31 Screening for disorder 567568721 Z11.59 Bronchopneumonia 0124591 07 J18.0 [id number] Justine Weston D.O. [facility], OFFICE [address] [place] [address] 10/17/2016 10:33:53 10/18/2016 16:18:28 Acute upper respiratory infection 64861910 J06.9 Educated patient that URI is a [...] failure to resolve in 2-4 weeks. Bronchospasm 2067815 J98 .01 [id number] Justine Weston D.O. , [facility] [place] [address] [place] [address] 11/29/2016 10:37:02 11/29/2016 11:25:44 Adult health examination 042620846 Z00.00 see Risk Assessment and Lifestyle Change Counseling section above Screening mammography 24 058380 Z12.31 Screening for disorder 351446341 Z11.59 Visual impairment 568048 003 H54.7 glaucoma suspect, narrow angleneeds yearly exam Polyp of colon 00637366 K63.5 recent colonoscop y- 9 mm polyp in hepatic flexure- which gre in 1 year- will get repeat colo in 1 year [id number] Justine Weston D.O. , [facility] [address] [place] [address] 11/30/2017 09:12:52 11/30/2017 11:36:44 Adult health examination 797570663 Z00.00 see Risk Assessment and Lifestyle Change Counseling section above Depression screening 171 Z13.89 depression screening tool administer ed, entered into emr, scored and discussed, time greater than 7.5 minutes Screening mammography 24 090985 Z12.31 Polyp of colon 10808456 K63.5 due for repeat colonosocp y this year- pt aware Obesity 867379215 E66.9 discussed increasing exrecise [id number] Nickolas Guerra MD , [facility], OFFICE [address] [place] [address] 09/14/2018 16:48:10 09/17/2018 13:57:27 Acute upper respiratory infection 62182178 J06.9 Educated patient that URI is a [...] failure to resolve in 2-4 weeks. Cough 91944278 R05 [id number] Jaiden Baker MD , [facility], OFF[address] [place] [address] 12/12/2018 09:11:06 12/12/2018 10:48:01 Adult health examination 084966629 Z00.00 see Risk Assessment and Lifestyle Change Counseling section above Depression screening 171 181688 Z13.89 depression screening tool administer ed, entered into emr, scored and discussed, time greater than 7.5 minutes Screening mammography 24 604464 Z12.31 Discussed screening recommenda tion. Patient would like to proceed with screening. Hand pain 78742357 M79.6 43 Chronic DJD of handsWtunde anand hand pain and strength Will refer to hand surgery as patient would like to have a new brace made Cataract 477213696 H26.9 CataractsP atient following with Dr Fisher scheduled interventi on at this time Obesity 272736148 E66.9 BMI 31.8Discus sed lifestyle modificati on, mediterran angel diet and 30 minutes daily exerciseRe viewed impaired fasting glycemia noted on last BMP, will recheck in 1 year [id number] Nickolas Guerra MD , [facility], [address] [place] [address] 01/01/2019 15:05:52 01/01/2019 16:31:28 Acute upper respiratory infection 72763062 J06.9 Allergic rhinitis 752289 04 J30.9 [id number] Kash Crump MD , [facility], OFF[address] [place] [address] 04/30/2020 11:00:42 05/04/2020 13:36:38 Otalgia 14247195 H92.03 Sinus infx vs otitis media vs URI vs COVID. Sinus PERRY x 7 days. Will treat presumptiv bharti for sinusitis and otitis externa. Discussed risk benefit of ppx abx - pt. would like to try abx. Will take daily probiotic at least 2 hours apart from abx. Denies PCN allergy. Will f/u if sxs worsen. Headache 29504068 R51 Suspected COVID-19 49763 4004 Z03.818 Onset of sxs 7 days ago: nausea, PERRY, cough, mild SOB, ear pain. No known exposure to COVID. . Discussed risk/benef its of testing, reviewed high false negative and importance of ending isolation based on sxs. Patient requesting testing. [facility] COVID order faxed.Advi sed isolation for 7 days from the onset of sxs and until 3 days of improved sxs and 3 days of no fever without use of antipyreti c. Patient safe to stay at home, will f/u if sxs worsen or with any questions or concerns. [id number] Jaiden Baker MD , [facility], [address] [place] [address] 09/10/2020 10:37:14 09/11/2020 11:14:02 Bilateral cataracts 07942871 H26.9 Pre-surger y evaluation 622687798 Z01.818 - pt presenting for pre-op, L cataract surgery scheduled 09/16/[address] Tate - Revised Cardiac Risk Index (RCRI): score 0, class I, 0.4% risk cardiac complicati ons - f/u with PCP as appropriat e [id number] Leonor Cortes , [facility], OFFICE [address] [place] [address] 11/24/2021 11:13:35 12/02/2021 16:36:01 Adult health examination 312154322 Z00.00 Counseling 103632339 Z71 .9 Depression screening 171 899281 Z13.31 depression screening tool administer ed, entered into emr, scored and discussed, time greater than 7.5 minutes Sinusitis 51717259 J32.9 Has been 6 days, does not appear bacterial at this time, recommend symptomati c management . Pt to contact the office if no improvemen t or any worsening symptoms Obesity 450528662 E66.9 Elevated blood-pressure reading without diagnosis of hypertension 084539479 R03.0 Pt feels bp elevated today due to Sudafed use, declines returning to bp clinic to recheck [id number] Jaiden Baker MD , [facility], [address] [place] [address] 03/03/2022 09:58:08 03/04/2022 16:45:53 Pain of right knee joint 5796020171 27979 M25.561 s/p total R knee replacemen t [...] Elevated blood-pressure reading without diagnosis of hypertension 172869267 R03.0 above goal today, no HTNsuspect due to acute knee concerns as abovewill reassess once feeling better/abiola n for the knee is establishe d [id number] Antonio Bonilla MD Sports Medicine, [facility] [address] [place] [address] 03/09/2022 14:17:56 03/16/2022 13:09:52 Pain of right knee joint 2563983417 09972 M25.561 Aylin is a 66-year-ol d female [...] provider and was given a referral to [facility]. She will plan to call to set up an appointmen t. If her blood work is concerning for an infection I will work to expedite this appointmen t for her. At this point, dashawn hay I do not feel that much in addition to offer her although I am always happy to see her back as needed.I did review office notes from Dr. Hernández when he evaluated her several years ago as part of the office visit. [id number] Jaiden Baker MD , [facility], [address] [place] [address] 03/10/2022 09:54:38 03/10/2022 10:29:11 Elevated blood-pressure reading without diagnosis of hypertension 298686510 R03.0 above goal today, no hx HTNwill reassess once feeling better/abiola n for the knee is establishe d Pain of ri ght knee joint 1377401801 91156 M25.561 exam stablespor ts medicine consult note reviewedla bs cbc, esr reviewed with pt and WNL, crp still pending - reassuranc e givenf/u with [facility] as planned, referral changed to stat given severe pain, encouraged pt to call today/mikey khan to scheduleco ntinue conservati ve care in the interim including tylenol regimen, tramadol as needed for severe pain, she has enough to get her through the weekend [id number] Jaiden Baker MD , [facility], [address] [place] [address] 03/06/2023 09:01:52 03/08/2023 07:14:20 Adult health examination 405121566 Z00.00 Depression screening 171 753349 Z13.31 depression screening tool administer ed. no concerns. Screening for alcohol abuse 780709364 Z13.39 Alcohol use screening tool administer ed. does not drink alcohol, no concerns. Active or passive immunization 528756918 Z23 shingles-p t states they gotpneumo- pt states they got Obesity 679042530 E66.9 continue working on diet/exerc ise as discussedc all if interested in seeing nutrition Pain of ri ght knee joint 2642973101 05945 M25.561 recent ortho consult note reviewed, only [...] Elevated blood-pressure reading without diagnosis of hypertension 117534120 R03.0 typically above goal in office due to white coat HTNno hx HTN/not on medication swill have staff call next week to reassess home readings Carpal kassie rebekah syndrome of right wrist [id number] 96699 G56.01 pending surgery, has consult later this week Hypertriglyceridemia 302 787766 E78.1 [facility] Counseled by member of primary health care team 495629492 Z71.9 Today we discussed ways to reduce [...] practition er may recommend taking daily aspirin. [id number] Jaiden Baker MD , [facility], [address] [place] [address] 04/20/2023 10:40:25 04/21/2023 14:42:08 Dysuria 01086746 R30.0 Patient with urinary symptoms.H istory and exam and urinalysis consistent with UTI. TReat w/ Bactrim for 3-7 days. Take probiotics . If concerns return? early symptoms of pyelonephr itis. Will give longer courseLow risk of . Will send urine for culture.Di scussed supportive and preventive measures.P atient instructed to follow up if not better or with new symptoms. Active or passive immunization 143462346 Z23 shingles-p atient got both doses History of calculus of kidney 210871134 Z87.442 If symptoms nolt resolved with antibiotic s needs u/s for KUB to eval bladder [id number] AIDEE CASTELLANO , [facility], [address] [place] [address] 01/19/2024 08:35:27 01/19/2024 10:32:07 Screening mammography 69110960 Z12.31 Postmenopausal state 764 06267 Z78.0 Pain in both feet 629935 0987 7955674 M79.671 No swelling, no evidence of heart failure. Pain does not fit the pattern of plantar fasciitis, suspect it is more arthritis related. Will have her go back for new orthotics. Continue cushioned shoes, rest, Tylenol - call if anything changes. Hypertriglyceridemia 302 171972 E78.2 Requests refill of fenofibrat e Osteoarthritis 321799359 M19.90 Significan t arthritis at baseline. Continue tylenol ES, advised she make a follow up with PCP as she reports her arthritis is worsening in multiple sites of her body. [id number] JF NICK , [facility], [address] [place] [address] 06/07/2024 14:51:11 06/07/2024 16:04:40 Active or passive immunization 276193764 Z23 Screening mammography 24 648006 Z12.31 has appt Postmenopausal state 764 37255 Z78.0 has appt for bone density Elevated blood-pressure reading without diagnosis of hypertension 658695492 R03.0 BP stable and at goal < [...] lower your blood pressure. Burn of skin 208219423 T 30.[address] refill topical Anterior c hest wall pain 590809004 R07.89 Right sided chest tenderness x weeks, worse with movementAd mittedly exerting self last week with groceries, cleaningDi scharged from [facility] ER 06/06/24 after normal EKG, labs incl. troponin and D-dimerImp roved today with heat, restH&P c/w likely muscular etiology - continue Tylenol, heat, restRTO if symptoms persist or worsen, if you develop any crushing chest pain or SOB Nocturia 081462319 R35.1 Increasing ly frequentA1 c 2022 prediabeti c - repeatAdvi se limiting fluids at night, scheduled bathroom tripsHX stonesMay want to get PVR if persists Prediabetes 380254823 R7 3.03 [id number] Jaiden Baker MD , [facility], [address] [place] [address] 06/10/2024 14:55:47 06/11/2024 18:16:05 [id number] Jaiden Baker MD , [facility], [address] [place] [address] 07/02/2024 09:25:45 07/02/2024 10:07:34 Active or passive immunization 431716436 Z23 Vaccines updated from [facility] 06/28/24 cc Postmenopausal state 764 27632 Z78.0 Bone Density ordered 01/19/24 cc Essential hypertension 36766530 I10 BP above goal <130/80in ED 06/06 [...] labs prior to f/u 1 mo Prediabetes 763226686 R7 3.03 recheck a1c with labs [id number] RADHIKA BILLINGS PA-C , [facility], OFFICE [address] [place] [address] 09/05/2024 11:02:44 09/05/2024 12:54:31 Postmenopausal state 79407315 Z78.0 Ordered 01/19/24, pt no longer interested 09/05/24 cc Essential hypertension 40764078 I10 BP above goal but is improvedan xiety could be contributi ngdeclines to increase/a lter her medication at this timewill continue 150mg irbesartan for nowcontinu e home checks/log gingf/u 1 month to reassessla bs reviewed - WNL Anxiety 72646693 F41.9 stress/anx iety related to son's mental health, he's currently in the hospital awaiting psych admissionP [facility] resources offered, she declines but will reach out if she changes her mind Hypertriglyceridemia 302 683650 E78.2 stable, continue fenofibrat ewill continue to monitor Impaired f asting glycemia 504520046 R73.01 no longer in pre diabetic range!will continue to monitor [id number] RADHIKA BILLINGS PA-C , [facility], OFF[address] [place] [address] 11/07/2024 10:45:55 11/07/2024 11:31:36 Postmenopausal state 25696230 Z78.0 Ordered 01/19/24, pt no longer interested 09/05/24 cc, not interested 11/07/24 cc Essential hypertension 81581454 I10 BP avg above goalhigh daily stress contribute s (130s/70s when not stressed)r ec to increase to 300mg irbesartan , she declines and will continue the 150mg dose; declines alternativ e medication optionscon tinue home checks/log gingf/u 2-[address] labs WNL Anxiety 14358966 F41.9 high stress/anx iety mainly related to son's mental health, he's no longer living with them which has [facility] resources discussed and offered again today, she declines but will reach out if she changes her mind Pain of ri ght knee joint 9448321661 15462 M25.561 s/p knee replacemen t in 50s and has had issues sincewas following with [facility] orthopedic s, declines to f/u with them, [facility], or Dr. Jane repeat xray, last done in 2022encour aged to consider PT and call if interested in referral Dysfunctio n of bilateral eustachian tubes 2867712897 738402 H69.93 - symptoms consistent with ETD- reassuranc e given- recommende d consistent use of Flonase (1 spray per nostril twice daily) for a minimum of 2 weeks to open the eustachian tubes; can also trial daily antihistam ine- discussed may take several weeks to clear/impr ove, call if worsening [id number] OIMD WRIGHT , [facility], OFF[address] [place] [address] 11/22/2024 15:06:08 11/22/2024 17:13:02 Screening mammography 67061720 Z12.31 Has scheduled 11/22/24 SD Postmenopausal state 764 [address]42 Z78.0 Ordered 01/19/24, pt no longer interested 09/05/24 cc, not interested 11/07/24 cc Declines 11/22/24 SD Essential hypertension 19937115 I10 BP above goalhigh daily stress contribute s (130s/70s when not stressed)r ec to increase to 300mg irbesartan , she declines and will continue the 150mg dose; declines alternativ e medication optionscon tinue home checks/log gingf/u as scheduled in a few months to check inlast labs WNL Anxiety 52519050 F41.9 high stress/anx iety mainly related to son's mental health, he's no longer living with them which has helpedPC[facility] resources discussed and offered again today, she declines but will reach out if she changes her mind Pain of ri ght knee joint 8608246814 03906 M25.561 s/p knee replacemen t in 50s and has had issues sincewas following with [facility], declines to f/u with them, [facility], or Dr. Castillo at imaging reassuring - WNL Pain of ri ght hip joint 6624064313 67322 M25.551 worsening RLE pain with notable discomfort with hip ROMR knee xrays reviewed and WNL s/p surgerywil l order additional hip/pelvis and SI imaging and f/u thereafter call in the interim with any worsening symptoms [id number] Jaiden Baker MD , [facility], OFF[address] [place] [address] 02/07/2025 10:59:45 02/07/2025 11:32:01 Pain of right hip joint 4338278411 85565 M25.551 Been following with ortho, recently had [...] care Pain of ri ght knee joint 9005991356 63285 M25.561 - been following with ortho- see plan above Essential hypertension 08432949 I10 BP at goal in office today- high daily stress contribute s to higher BP at home- continue current dose of irbesartan - continue home checks/log ging- f/u in a few months to check in Anxiety 81031416 F41.9 high stress/anx iety mainly related to son's mental health, he's no longer living with them which has [facility] resources discussed and offered again today, she declines but will reach out if she changes her mind Health Concerns Section Related Observation LastModified by Organization Detai ls LastModified Time None Recorded Concern Status LastModified by Organization Details LastModified Time None Recorded Advance Directives Directive None Recorded Payers Insurance Date Sequence Insurance Name Policy Number Policy Kelly Covered Member ID Kelly Member ID Guarantor Name 02/06/2025 1 [place] [facility] [id number] Len Jones [id number] Aylin Robert Notes Date Note Type Note Provider Name and Address Organization Details Recorded Time 07/02/2024 text/html 07/02/24-here fo r BP f/u has anxiety around taking BP readings at homefelt dizzy, stopped taking BP at home and feels obsdkj77/8 - 153/83, 163/9510/12 - 144/86, 152/9110/13 - 135/77, 154/82 seen in ER for chest pain 06/06 w/ reassuring workup Patient has agreed to allow the participation of a professional student in today s visit. This consent allows for a [...] nightly to use bathroom. Nickolas Guerra MD [address] [place] [address], [place], [address], [facility] 07/02/2024 10:46:05 09/05/2024 text/html 09/05/24- BP f/u [...] stopped taking BP at home and feels ypmghh64/8 - 153/83, 163/9510/12 - 144/86, 152/9110/13 - 135/77, 154/82 seen in ER for chest pain 06/06 w/ reassuring workup Patient has agreed to allow the participation of a professional student in today s visit. This consent allows for a [...] nightly to use bathroom. Nickolas Guerra MD [address] [place] [address], [place], [address], [facility] 09/05/2024 12:44:15 11/07/2024 text/html 11/07/24- BP f/u when stress is high BP is high, home readings 130s-160s systolicson is doing better but continues to talk poorly to her and her ; he's no longer living w/ them which has helpedusing mail order pharmacy - frustrated with process which has contributed to her stress levels, talked w/ [employer]ra[employer] supervisor and hopes it will be straightened [...] stopped taking BP at home and feels odvxnd49/8 - 153/83, 163/9510/12 - 144/86, 152/9110/13 - 135/77, 154/82 seen in ER for chest pain 06/06 w/ reassuring workup Patient has agreed to allow the participation of a professional student in today s visit. This consent allows for a [...] nightly to use bathroom. RADHIKA BILLINGS PA-C [address] [place] [address], [phone], [facility] 11/07/2024 11:21:05 11/22/2024 text/html 11/22/24 c/o ongo ing R leg issues, see case #[id number]. SD feels pain she thought was her knee might not be her kneewhen going from bending to standing up, getting socks on, drying off after shower painfulpain starts around R knee, can be all the way down, radiates up to R hip and buttocksfeels area more or less gives outno issues w/ walking normally RADHIKA BILLINGS PA-C [address] [place] [address], [phone], [facility] 11/22/2024 15:40:02 02/07/2025 text/html 02/07/25 69 year [...] the participation of a professional student in today s visit. This consent allows for a professional student to: gather medical history, review present medications, review past medical history and complaints, perform non-sensitive parts of physical exam without supervising practitioner present, and participate in discussion with patient and practitioner of diagnosis and treatment plans. Student name: Ish Type: JF 11/22/24 c/o ongoing R leg issues, see case #[id number]. 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 This consent allows for a [...] nightly to use bathroom. RADHIKA BILLINGS PA-C [address] [place] [address], [phone], [facility] 02/07/2025 12:14:25 OBGyn Episode No OBEpisode recorded.
== END 2025-02-19 09:17 | disposition home or self-care (01) ==
LOC: CF 09:16
DX: Z13.89 Encounter for screening for other disorder (principal)

== ENCOUNTER 2025-03-14 09:16 | Day surgery (SDC) | payer BC, SELFPAY ==
--- OUTSIDE RECORDS SUMMARY | 2025-02-27 10:57 | XMS_ITS | Data Portability ---
Author Organization [facility], [facility] Address [address] [place] [address] Care Team Providers Care Disk Operator Name Role Phone TOMSA MCCORMACK Orthopedic Surgeon ARIADNE MITCHELL Orthopedic Surgeon TONE GARY Brim Rounder FRANCIA NORRIS Slot Machine Floor Person RADHIKA BILLINGS Primary Care Provider TAISHA COX Scalder Assessment No assessment recorded. Plan of Treatment Reminders Order Date Submit Date Provider Last Modified By Organization Details Last Modified Time Details Appointments Foll ow Up, 15 2024 11:00A M RADHIKA BILLINGS PA-C Not available Not available Not available Mamm ogra m, Scre enin g 2024 11:30A M [facility] Mammography Not available Not available Not available Lab None ian rded . Referral None ian rded . Procedures None ian rded . Surgeries None ian rded . Imaging XR, hip + pelv is, unil ater al, 2 or 3 view - R hip pain wors enin g 2024 025 [facility] (Imaging), [address], [place], [address], 11/25/2024 11:36:35 XR, sacr oili ac join t(s) - radi atin g R hip pain wors enin g. 2024 025 [facility] (Imaging), [address], [place], [address], 11/25/2024 11:39:42 XR, knee , weig htbe jhonny g - wors enin g R knee pain , s/p knee repl acem ent in 50s 2024 025 [facility] (Imaging), [address] [place], [address], 11/07/2024 13:29:35 Medication Orders irbe sart an 150 mg tabl et 2024 025 [facility], [place], [address], 09/05/2024 12:44:13 losa rtan 25 mg tabl et 2023 024 [facility], [place], [address], 07/23/2024 09:15:11 Patient TargetsNo targets recorded. Patient InstructionsNo instructions recorded. Reason for Referral None Reported. Results Created Date Observation Date Name Description Value Unit Range Abnormal Flag Note LastModifiedBy Organization Detail LastModifiedTime 08/30/2008/30/2024 LIPID PANEL cholesterol 198 mg/dL <200 mg/dl Sosa able 200-2 39 mg/dl Borde rline High >240 mg/dl High Not Available [address], [address], 08/30/2024 14:06:11 08/30/20 24 08/30/2024 LIPID PANEL triglyceride s 227 mg/dL <150 mg/dL Rona l 150-1 99 mg/dL Borde rline High 200-4 99 mg/dL High >500 mg/dL Very High Not Available [address], [address], 08/30/2024 14:06:11 08/30/20 24 08/30/2024 LIPID PANEL direct HDL 42 mg/dL <40 mg/dl - Major Risk for CHD >60 mg/dl - Negat masha Risk for CHD Not Available [address], [address], 08/30/2024 14:06:11 08/30/20 24 08/30/2024 LDL - CALCU LATED LDL - calculated 111 RISK CATEG ORY LDL GOAL _ CHD or CHD Risk Equiv alent s <100 mg/dl (10-y ear risk >20%) 2+ Risk Facto rs <130 mg/dl (10-y ear risk <= 20%) 0-1 Risk Facto r <160 mg/dl [facility] e with 0-1 risk facto r have a 10 year risk <10%, thus 10 year risk asses ment in peopl e with 0-1 risk facto r is not eileen craig. Not Available [address], [address], 08/30/2024 14:06:12 08/30/20 24 08/30/2024 BASIC METAB OLIC PANEL glucose 107 mg/dL 70-100 high Not Available [address], [address], 08/30/2024 14:12:15 08/30/20 24 08/30/2024 BASIC METAB OLIC PANEL BUN 18 mg/dL 7-18 Not Available [address], [address], 08/30/2024 14:12:15 08/30/20 24 08/30/2024 BASIC METAB OLIC PANEL creatinine 0.8 mg/dL 0.8-1. 3 Not Available [address], [address], 08/30/2024 14:12:15 08/30/20 24 08/30/2024 BASIC METAB OLIC PANEL B/C 22.5 ratio Not Available [address], [address], 08/30/2024 14:12:15 08/30/20 24 08/30/2024 BASIC METAB [...] be used in pregn isabell. Not Available [address], [address], 08/30/2024 14:12:15 08/30/20 24 08/30/2024 BASIC METAB OLIC PANEL sodium 143 mmol/ L 136-14 5 Not Available [address], [address], 08/30/2024 14:12:15 08/30/20 24 08/30/2024 BASIC METAB OLIC PANEL potassium 4.2 mmol/ L 3.5-5. 1 Not Available [address], [address], 08/30/2024 14:12:15 08/30/20 24 08/30/2024 BASIC METAB OLIC PANEL chloride 107 mmol/ L 96-107 Not Available [address], [address], 08/30/2024 14:12:15 08/30/20 24 08/30/2024 BASIC METAB OLIC PANEL anion gap 13.7 5.0-15 .0 Not Available [address], [address], 08/30/2024 14:12:15 08/30/20 24 08/30/2024 BASIC METAB OLIC PANEL CO2 26 mmol/ L 21-32 Not Available [address], [address], 08/30/2024 14:12:15 08/30/20 24 08/30/2024 BASIC METAB OLIC PANEL calcium 9.0 mg/dL 8.5-10 .3 Not Available [address], [address], 08/30/2024 14:12:15 08/30/20 24 08/30/2024 HGB A1C [...] furth er confi rmati on Not Available [address], [address], 08/30/2024 14:16:01 08/30/20 24 08/30/2024 HGB A1C estimated average glucose 114.0 mg/dL Not Available [address], [address], 08/30/2024 14:16:01 06/27/20 24 06/27/2024 MAMMO , [...] was mailed to your patien t indica maring the result s and recomm endati ons [...] Yrn valiente Physic wilfrido: Melecio Son [email or web address] [facility] (Imaging) [address] [place], [address], 06/27/2024 14:54:26 11/08/19 25 11/07/2024 XR, knee, [...] . Yrn valiente Physic wilfrido: Melecio Son [email or web address] [facility] (Imaging) [address] [place], [address], 11/21/2024 09:20:44 11/26/19 25 11/25/2024 XR, hip [...] Please see body of report . Yrn valietne Physic wilfrido: [facility] ([facility]) [address] [place], [address], 11/26/2024 13:54:31 11/26/19 25 11/25/2024 XR, sacro [...] ality. Yrn valiente Physic wilfrido: Randall Maldonado [facility] (Imaging) [address] [place], [address], 11/26/2024 13:54:32 02/15/20 25 12/19/2024 MRI, lumba r spine , w/o contr ast No observ ation record ed. [email or web address] Not Available 2024 08:21:09 Result Notes Documentation [...] knee arthroplasty. No abnormality.. [facility] 11/21/2024 09:20:45 Xr, Hip + Pelvis, [...] report. Reading Physician: Randall Ashford Not Available [facility] 11/26/2024 13:54:31 Xr, Sacroiliac Joint(s) : CLINICAL HISTORY: Radiating right hip pain worsening TECHNIQUE: 3 views of the sacrum, coccyx and sacroiliac joints are obtained. 3 images. COMPARISON: Pelvis/right hip radiograph same day. FINDINGS: No acute fracture seen. Some degenerative changes within the spine. No sacroiliac joint dislocation. IMPRESSION: No acute bony abnormality. Reading Physician: Randall Ashford Not Available [facility] 11/26/2024 13:54:32 Problems Name Problem SNOMED Code Status Onset Date Resolution Date Notes Provider Name and Address Organization Details Recorded Time Mixed hyperlip idemia 272800130 Completed 11/26/2015 Justine Weston D.O. [address] [place], [address], [facility] 6 11:49:47 Abnormal gait 28719725 Completed 11/26/2015 Justine Weston D.O. [address] [place], [address], [facility] 6 11:49:47 Kidney stone 76458306 JF Paul [address] [place], [address], [facility] 2 11:52:44 Osteoart hritis of joint of hand 13434627 JF Paul [address] [place], [place] [address], [address], [facility] 2 11:52:48 Polyp of colon 47751843 Active 2016 adenomat ous polyp, last colo 01/2018 repeat 3 yrs JF Rcihards [address] [place], [place] [address], [place], [address], [facility] 2 11:52:52 Obesity 935486233 Active 2017 JF Richards [address] [place], [place] [address] [place], [address], [facility] 2 11:52:38 Osteoart hritis 901064815 Active 2021 JF Julio [address] [place], [place] [address] [place], [address], [facility] 2 10:27:01 Pain of right knee joint 56619555425 4100 Active 2022 s/p total replacme nt. JF Julio [address] [place], [place] [address] [place], [address], [facility] 3 09:27:20 Carpal tunnel syndrome of right wrist 06029291973 9108 Active 2022 JF Julio [address] [place], [place] [address] [place], [address], [facility] 3 09:27:37 Hypertri glycerid emia 628080358 Active 2022 JF Julio [address] [place], [place] [address] [place], [address], [facility] 3 09:40:55 Impaired fasting glycemia 624940409 Active 2022 JF Julio [address] [place] [address] [place], [address], [facility] 3 15:40:39 Prediabe kimberli 107153311 Active 2022 JF Julio [address] [place] [address] [place], [address], [facility] 3 11:26:08 Chest pain 56427183 Active 2023 [facility] 4 10:06:59 Essentia l hyperten keli 21455629 Active 2023 JF Julio [address] [place] [address] [place], [address], [facility] 4 10:03:30 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 Procedures Surgical History Date Name Laterality Status Provider Name and Address Organization Details Recorded Time 023 Medicare Wellness Visit completed Tabitha Torres MA [facility] 03/06/2023 08:47:08 023 Cardiovascular disease risk reduction counseling completed JF Julio [address] [place] [address], [address], [facility] 03/06/2023 09:50:21 022 Medicare Wellness Visit completed Thi Armendariz MA [facility] 11/23/2021 16:23:42 018 Colonoscopy completed Maurice Freeman NP [address] [place] [address], [address], [facility] 02/06/2018 19:32:13 016 Tasxochilti - Colonoscopy completed Adonis Rodriguez MD [address] [place] [address], [address], [facility] 07/18/2016 08:07:16 completed Yasmin Lacy LPN [facility] 06/08/2012 09:40:06 Total Hysterectomy completed Yasmin Lacy LPN [facility] 06/08/2012 08:53:54 Tonsillectomy completed Yasmin Lacy LPN [facility] 06/08/2012 08:53:54 Cystourethroscopy completed Yasmin Lacy LPN [facility] 06/08/2012 09:40:06 Imaging Results None recorded. Procedure Notes None recorded. Medical Equipment None Reported. Allergies Allergen ID Allergen Name Allergen Category Reaction Reaction Severity Criticality Documentation Date Start Date Code Code System Note Provider Name and Address Organization Details Recorded Time 253411 Aleve medicatio n itching Not available Not available 06/05/2012 66649 1 RxNorm Aleve -D Jana Salmeron [facility] 2 14:01:43 538543 Product containin g penicilli n (product) medicatio n Not available Not available Not available 06/05/2012 62488 8001 SNOMED [place] [facility] 2 11:03:18 964188 Keflex medicatio n nausea Not available Not available 06/05/201255729 7 RxNorm [place] [facility] 2 11:03:18 675584 Macrodant in medicatio n Not available Not available Not available 06/05/2012 4 RxNorm [place] [facility] 2 11:03:18 880634 Iodinated contrast media (substanc e) medicatio n respirato ry distress Not available Not available 06/08/2012 51838 2004 SNOMED Yasmin Lacy LPN [facility] 2 08:56:47 344833 losartan medicatio n Not available Not available Not available 07/09/2024 16780 RxNorm dizzy /upse t stoma ch JF Julio [address] [place], [place] [address] [place], [address], [facility] 4 11:31:52 509868 lisinopri l medicatio n Not available Not available Not available 07/30/2024 01740 RxNorm cough RADHIKA BILLINGS PA-C [address] [place], [place] [address] [place], [address], [facility] 4 10:46:48 Medications Name Sig Start Date [...] Updated DateTime 5 175.26 cm 30.5 kg/m2 07791.4 3 g 97 % 97 % 74 /min 148 mm[Hg] 86 mm[Hg] 144 mm[Hg] 81 mm[Hg] Karen Summers MA [facility] 5 11:16:01 Date Recorded Body height Oxygen saturation Oxygen saturation in Arterial blood by Pulse oximetry Heart rate Body mass index (BMI) Body weight Systolic blood pressure Diastolic blood pressure Systolic blood pressure Diastolic blood pressure Provider Name and Address Organization Details Last Updated DateTime 5 175.26 cm 98 % 98 % 74 /min 30.9 kg/m2 21294.8 1 g 152 mm[Hg] 88 mm[Hg] 132 mm[Hg] 74 mm[Hg] Karen Summers MA [facility] 5 10:57:01 Date Recorded Systolic blood pressure Diastolic blood pressure Provider Name and Address Organization Details Last Updated DateTime 11/22/2024 146 mm[Hg] 90 mm[Hg] RADHIKA BILLINGS PA-C [address] [place] [address], [address], [facility] 11/22/2024 15:31:33 Date Recorded Body height Heart rate Oxygen saturation Oxygen saturation in Arterial blood by Pulse oximetry Systolic blood pressure Diastolic blood pressure Provider Name and Address Organization Details Last Updated DateTime 5 175.26 cm 74 /min 96 % 96 % 164 mm[Hg] 92 mm[Hg] Ade Montes CMA [facility] 5 15:18:13 Date Recorded Body height Body mass index (BMI) Body weight Heart rate Oxygen saturation Oxygen saturation in Arterial blood by Pulse oximetry Systolic blood pressure Diastolic blood pressure Provider Name and Address Organization Details Last Updated DateTime 5 175.26 cm 31.4 kg/m2 35196.3 8 g 74 /min 98 % 98 % 126 mm[Hg] 78 mm[Hg] Christiano [facility] 5 11:08:21 Date Recorded Body height Body mass index (BMI) Body weight Oxygen saturation Oxygen saturation in Arterial blood by Pulse oximetry Heart rate Systolic blood pressure Diastolic blood pressure Systolic blood pressure Diastolic blood pressure Provider Name and Address Organization Details Last Updated DateTime 4 175.26 cm 31.2 kg/m2 43923.9 9 g 97 % 97 % 70 /min 144 mm[Hg] 88 mm[Hg] 140 mm[Hg] 86 mm[Hg] Karen Summers [facility] 4 09:39:28 Date Recorded Systolic blood pressure Diastolic blood pressure Provider Name and Address Organization Details Last Updated DateTime 07/25/2024 140 mm[Hg] 80 mm[Hg] RADHIKA BILLINGS PA-C [address] [place] [address], [address], [facility] 07/25/2024 08:39:43 Social History Question Answer Notes LastModified by Organizat ion Details LastModified Time Tobacco Smoking Status Never Smoker Jana lewis [facility] 06/11/2012 14:10:46 What Is Your Level Of Caffeine Consumption? Moderate 2-4 Coke's A Day [email or web address] Information not available 06/11/2012 How Much Tobacco Do You Chew? None [email or web address] Information not available 06/11/2012 What Type Of Diet Are You Following? REGULAR Information not available 06/11/2012 Which Illicit Or Recreational Drugs Have You Used? None [email or web address] Information not available 06/11/2012 Education 12 Information no t available 06/11/2012 Are There Any Guns Present In Your Home? No [email or web address] Information not available 11/26/2015 Do You Use Insect Repellent Routinely? No Information not available 11/24/2021 Live Alone Or With Others? With Others [email or web address] Information not available 06/11/2012 Patient Has Health Care Proxy Signed And In Chart Yes [email or web address] Information not available 08/22/2018 MOLST Form Signed And In Chart 05/02/2023 [email or web address] Information not available 05/04/2023 Marital Status [email or web address] Informatio n not available 06/11/2012 Mosquito Repellent Used Routinely No [email or web address] Information not available 06/11/2012 What Was The Date Of Your Most Recent Tobacco Screening? 02/07/2025 [email or web address] Information not available 02/07/2025 How Many Children Do You Have? 2 Grown [email or web address] Information not available 06/11/2012 Do You Use Your Seat Belt Or Car Seat Routinely? Yes [email or web address] Information not available 11/24/2021 Seat Belts Used Routinely Yes [email or web address] Information not available 06/11/2012 Are You Sexually Active? No Please Do Not Ask Patient At Visits [email or web address] Information not available 12/12/2018 Smoke Alarm In Home Yes [email or web address] Information not available 06/11/2012 Do You Have Smoke And Carbon Monoxide Detectors In Your Home? Yes [email or web address] Information not available 11/24/2021 Are You Passively Exposed To Smoke? No [email or web address] Information not available 03/06/2023 General Stress Level High [email or web address] Information not available 06/11/2012 Do You Use Sunscreen Routinely? Yes As Needed [email or web address] Information not available 11/26/2015 Sex: Unknown Functional Status Question Answer Note LastModified by Organization D etails LastModified Time What is your level of alcohol consumption? 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 None [email or web address] Information not available 11/24/2021 Mental Status None [...] available 2013 08:58:59 Medical History Condition Response Osteoarthritis Y Obesity Y Gynecological HistoryNo gynecological history recorded. Obstetrics History GPAL:G 0 P 0 0 0 0 Immunizations Vaccine Type Date Status Note Provider Nam e and Address Organization Details Recorded Time influenza, seasonal, intradermal, preservative free 2 completed Not Available [facility] 09/21/2019 02:18:38 Tdap 4 completed Not Available [facility] 09/21/2019 02:16:08 Influenza, split virus, trivalent, preservative 3 completed [facility] 11/21/2013 08:42:26 zoster live 5 completed [facility] 11/26/2015 11:08:26 influenza nasal, unspecified formulation 5 completed [facility] 11/26/2015 11:08:26 Influenza, split virus, quadrivalent, preservative 6 completed [facility] 05/25/2016 11:22:41 Influenza, split virus, quadrivalent, preservative 7 completed CALRINE Lopez [facility] 05/16/2017 12:25:26 Influenza, split virus, quadrivalent, preservative 8 completed [facility] 05/18/2018 13:47:33 Tdap 9 completed [facility] 06/28/2024 09:34:33 Influenza, split virus, quadrivalent, preservative 0 completed Evelia Stout PA-C [address] [place] [address], [address], [facility] 06/17/2020 11:08:29 Pneumococcal conjugate PCV 13 0 completed Evelia Stout PA-C [address] [place] [address], [address], [facility] 06/17/2020 11:09:05 Influenza, high-dose, quadrivalent, PF 1 completed Morena Ann [facility] 05/05/2021 15:59:04 Influenza, split virus, quadrivalent, preservative 2 completed Thi Armendariz [facility] 04/26/2022 11:12:37 Influenza, adjuvanted, quadrivalent, PF 3 completed Karen Summers [facility] 05/16/2023 11:30:33 Tdap 0 completed Karen Summers [facility] 06/28/2024 09:35:11 Influenza, adjuvanted, trivalent, PF 4 completed Karen Cuauhtemocgely [facility] 06/28/2024 09:36:06 Pneumococcal conjugate PCV20, polysaccharide [id number] conjugate, adjuvant, PF 2 completed [facility] Summers [facility] 06/28/2024 09:37:00 zoster recombinant 2 completed Karen Summers [facility] 06/28/2024 09:37:34 zoster recombinant 2 completed Karen Cuauhtemocgely [facility] 06/28/2024 09:37:53 Past Encounters Encounter ID Performer Location Encounter Start Date Encounter Closed Date Diagnosis/Indication Diagnosis SNOMED-CT Code Diagnosis ICD10 Code Diagnosis Note [id number] Yelena Singh PA-C , [facility], OFFICE [address] [facility] [place] [address] 06/11/2012 13:50:17 06/11/2012 15:03:44 [id number] Justine Weston D.O. , [facility], OFFICE [address] [facility] [place] [address] 09/20/2012 13:47:13 09/20/2012 14:22:04 [id number] Jonathon Joshi MD Radiology , [facility] [address] [facility] [place] [address] 10/04/2012 10:35:55 10/05/2012 09:11:25 [id number] Justine Weston D.O. [facility], OFFICE [address] [place] [address] 11/21/2013 08:14:53 11/21/2013 08:58:02 Adult health examination 821110186 see Risk Assessment and Lifestyle Change Counseling section above Counseling [id number] Screening mammography 41161852 Hyperlipidemia 08719326 on fibrate, overdue for labs Osteoarthritis 245913120 bilat knee OA, s/p TKR in [place] 3 yrs ago. bad experience , woudl not wantto go through that surgery again. Administra tion of diphtheria, pertussis, and tetanus vaccine 832555689 [id number] Jayant Ozuna III, MD , [facility], OFFICE [address] [place] [address] 12/19/2013 08:56:46 12/19/2013 09:24:06 Lumbago with sciatica 584448820 [id number] Justine Weston D.O. [facility], OFFICE [address] [place] [address] 11/24/2014 08:45:43 11/24/2014 09:18:15 Adult health examination 245009083 see Risk Assessment and Lifestyle Change Counseling section above Counseling 918627181 Arthritis 4434465 hand O A discussed PT/OT will consider if wants cortisone injection in wrist- gave her name of dr. echeverria Hyperlipidemia 23887208 [id number] Justine Weston D.O. [facility], OFFICE [address] [place] [address] 11/26/2015 10:33:45 11/26/2015 11:51:18 Screening for disorder 314030235 Z11.59 Screening for malignant neoplasm of colon 651030721 Z12.11 Referral for a DIRECT booked colonoscop y. This patient is a healthy ASA Class 1 or 2 patient (only mild systemic disease), or a STABLE, well controlled insulin dependent diabetic. They do not have serious cardiac disease ie RI/angiopl asty within 1 year, symptomati c CHF; renal failure with CKD 4 or 5; take Coumadin, Plavix, Aggrenox, etc; nor take chronic narcotics. [Patients who take chronic narcotics should be referred to [facility] for a propofol procedure due to possible inability to sedate adequately with conscious sedation.] Bereavement 71208665 Z63 .4 of parokeet this month, very saD defers therapy, medication s Glaucoma suspect 0614301 08 H40.003 Adult heal th examination 133141632 Z00.00 see Risk Assessment and Lifestyle Change Counseling section above [id number] Len Mckeon DPM Podiatry, [address] [address] 02/12/2016 08:50:03 03/04/2016 15:35:23 [id number] Len Mckeon DPM Podiatry, [address] [address] 02/16/2016 10:35:34 02/18/2016 13:14:14 Hammer toe 499639155 M20.41 [id number] Len Mckeon DPM Podiatry, [address] [address] 03/21/2016 09:42:51 04/18/2016 16:11:40 Hammer toe 800056509 M20.41 [id number] Adonis Rodriguez MD [facility], [address] [address] 07/18/2016 06:47:08 07/18/2016 14:03:23 [id number] Sylvester Sandoval MD , [facility], OFFICE [address] [place] [address] 08/25/2016 08:04:22 08/25/2016 12:56:09 Acute upper respiratory infection 46464322 J06.9 Afebrile in office, no sinus tenderness [...] back. Adjustment disorder with mixed emotional features 63709452 F43.23 Pt very stressed and anxious with [...] would like to discuss any treatment options. [id number] Justine Weston D.O. , [facility], OFFICE [address] [place] [address] 10/12/2016 09:30:25 10/12/2016 10:10:31 Screening for disorder 284014782 Z11.59 Bronchopneumonia 9616170 07 J18.0 [id number] Justine Weston D.O. [facility], OFFICE [address] [place] [address] 10/17/2016 10:33:53 10/18/2016 16:18:28 Acute upper respiratory infection 32349208 J06.9 Educated patient that URI is a [...] failure to resolve in 2-4 weeks. Bronchospasm 4600419 J98 .01 [id number] Justine Weston D.O. [facility], OFFICE [address] [place] [address] 11/29/2016 10:37:02 11/29/2016 11:25:44 Adult health examination 726795407 Z00.00 see Risk Assessment and Lifestyle Change Counseling section above Screening mammography 24 827009 Z12.31 Screening for disorder 428096707 Z11.59 Visual impairment 460620 003 H54.7 glaucoma suspect, narrow angleneeds yearly exam Polyp of colon 23489462 K63.5 recent colonoscop y- 9 mm polyp in hepatic flexure- which gre in 1 year- will get repeat colo in 1 year [id number] Justine Weston D.O. , [facility], [address]ICE [address] [place] [address] 11/30/2017 09:12:52 11/30/2017 11:36:44 Adult health examination 825499205 Z00.00 see Risk Assessment and Lifestyle Change Counseling section above Depression screening 171 Z13.89 depression screening tool administer ed, entered into emr, scored and discussed, time greater than 7.5 minutes Screening mammography 24 566987 Z12.31 Polyp of colon 94470303 K63.5 due for repeat colonosocp y this year- pt aware Obesity 536697502 E66.9 discussed increasing exrecise [id number] Nickolas Guerra MD , [facility], [address] [place] [address] 09/14/2018 16:48:10 09/17/2018 13:57:27 Acute upper respiratory infection 46459282 J06.9 Educated patient that URI is a [...] failure to resolve in 2-4 weeks. Cough 28179703 R05 [id number] Jaiden Baker MD , [facility], [address] [place] [address] 12/12/2018 09:11:06 12/12/2018 10:48:01 Adult health examination 795133705 Z00.00 see Risk Assessment and Lifestyle Change Counseling section above Depression screening 171 171161 Z13.89 depression screening tool administer ed, entered into emr, scored and discussed, time greater than 7.5 minutes Screening mammography 24 906233 Z12.31 Discussed screening recommenda tion. Patient would like to proceed with screening. Hand pain 63909030 M79.6 43 Chronic DJD of handsWtunde anand hand pain and strength Will refer to hand surgery as patient would like to have a new brace made Cataract 502340510 H26.9 CataractsP atient following with Dr Fisher scheduled interventi on at this time Obesity 228573762 E66.9 BMI 31.8Discus sed lifestyle modificati on, mediterran angel diet and 30 minutes daily exerciseRe viewed impaired fasting glycemia noted on last BMP, will recheck in 1 year [id number] Nickolas Guerra MD , [facility], [address] [place] [address] 01/01/2019 15:05:52 01/01/2019 16:31:28 Acute upper respiratory infection 37817620 J06.9 Allergic rhinitis 189861 04 J30.9 [id number] Kash Crump MD , [facility], [address] [place] [address] 04/30/2020 11:00:42 05/04/2020 13:36:38 Otalgia 87611365 H92.03 Sinus infx vs otitis media vs URI vs COVID. Sinus PERRY x 7 days. Will treat presumptiv bharti for sinusitis and otitis externa. Discussed risk benefit of ppx abx - pt. would like to try abx. Will take daily probiotic at least 2 hours apart from abx. Denies PCN allergy. Will f/u if sxs worsen. Headache 95543464 R51 Suspected COVID-19 21841 4004 Z03.818 Onset of sxs 7 days ago: nausea, PERRY, cough, mild SOB, ear pain. No known exposure to COVID. . Discussed risk/benef its of testing, reviewed high false negative and importance of ending isolation based on sxs. Patient requesting testing. [facility] COVID order faxed.Advi sed isolation for 7 days from the onset of sxs and until 3 days of improved sxs and 3 days of no fever without use of antipyreti c. Patient safe to stay at home, will f/u if sxs worsen or with any questions or concerns. [id number] Jaiden Baker MD , [facility], [address] [place] [address] 09/10/2020 10:37:14 09/11/2020 11:14:02 Bilateral cataracts 47238829 H26.9 Pre-surger y evaluation 280421191 Z01.818 - pt presenting for pre-op, L cataract surgery scheduled 09/16/[address] Tate - Revised Cardiac Risk Index (RCRI): score 0, class I, 0.4% risk cardiac complicati ons - f/u with PCP as appropriat e [id number] Leonor Cortes , [facility], [address] [place] [address] 11/24/2021 11:13:35 12/02/2021 16:36:01 Adult health examination 704898197 Z00.00 Counseling 766207053 Z71 .9 Depression screening 171 535308 Z13.31 depression screening tool administer ed, entered into emr, scored and discussed, time greater than 7.5 minutes Sinusitis 84378253 J32.9 Has been 6 days, does not appear bacterial at this time, recommend symptomati c management . Pt to contact the office if no improvemen t or any worsening symptoms Obesity 301692354 E66.9 Elevated blood-pressure reading without diagnosis of hypertension 400959413 R03.0 Pt feels bp elevated today due to Sudafed use, declines returning to bp clinic to recheck [id number] Jaiden Baker MD , [facility], [address] [place] [address] 03/03/2022 09:58:08 03/04/2022 16:45:53 Pain of right knee joint 5908952467 54923 M25.561 s/p total R knee replacemen t [...] Elevated blood-pressure reading without diagnosis of hypertension 984150272 R03.0 above goal today, no HTNsuspect due to acute knee concerns as abovewill reassess once feeling better/abiola n for the knee is establishe fadia [id number] Antonio Bonilla MD Sports Medicine, [facility] [address] [place] [address] 03/09/2022 14:17:56 03/16/2022 13:09:52 Pain of right knee joint 1258927650 14341 M25.561 Aylin is a 66-year-ol d female [...] provider and was given a referral to [facility]. She will plan to call to set up an appointmen t. If her blood work is concerning for an infection I will work to expedite this appointmen t for her. At this point, kainfilemon hay I do not feel that much in addition to offer her although I am always happy to see her back as needed.I did review office notes from Dr. Hernández when he evaluated her several years ago as part of the office visit. [id number] Jaiden Baker MD , [facility], [address] [place] [address] 03/10/2022 09:54:38 03/10/2022 10:29:11 Elevated blood-pressure reading without diagnosis of hypertension 823618116 R03.0 above goal today, no hx HTNwill reassess once feeling better/abiola n for the knee is establishe d Pain of ri ght knee joint 1273493602 47842 M25.561 exam stablespor ts medicine consult note reviewedla bs cbc, esr reviewed with pt and WNL, crp still pending - reassuranc e givenf/u with [facility] as planned, referral changed to stat given severe pain, encouraged pt to call today/mikey rrow to scheduleco ntinue conservati ve care in the interim including tylenol regimen, tramadol as needed for severe pain, she has enough to get her through the weekend [id number] Jaiden Baker MD , [facility], [address] [place] [address] 03/06/2023 09:01:52 03/08/2023 07:14:20 Adult health examination 302640055 Z00.00 Depression screening 171 273240 Z13.31 depression screening tool administer ed. no concerns. Screening for alcohol abuse 843805069 Z13.39 Alcohol use screening tool administer ed. does not drink alcohol, no concerns. 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 [id number] Jaiden Baker MD , [facility], [address] [place] [address] 04/20/2023 10:40:25 04/21/2023 14:42:08 Dysuria 11431373 R30.0 Patient with urinary symptoms.H istory and exam and urinalysis consistent with UTI. TReat w/ Bactrim for 3-7 days. Take probiotics . If concerns return? early symptoms of pyelonephr itis. Will give longer courseLow risk of . Will send urine for culture.Di scussed supportive and preventive measures.P atient instructed to follow up if not better or with new symptoms. Active or passive immunization 142617972 Z23 shingles-p atient got both doses History of calculus of kidney 326615815 Z87.442 If symptoms nolt resolved with antibiotic s needs u/s for KUB to eval bladder [id number] AIDEE CASTELLANO , [facility], [address] [place] [address] 01/19/2024 08:35:27 01/19/2024 10:32:07 Screening mammography 73878736 Z12.31 Postmenopausal state 764 41886 Z78.0 Pain in both feet 307299 3944 7586351 M79.671 No swelling, no evidence of heart failure. Pain does not fit the pattern of plantar fasciitis, suspect it is more arthritis related. Will have her go back for new orthotics. Continue cushioned shoes, rest, Tylenol - call if anything changes. Hypertriglyceridemia 302 977995 E78.2 Requests refill of fenofibrat e Osteoarthritis 374937844 M19.90 Significan t arthritis at baseline. Continue tylenol ES, advised she make a follow up with PCP as she reports her arthritis is worsening in multiple sites of her body. [id number] JF NICK , [facility], [address] [place] [address] 06/07/2024 14:51:11 06/07/2024 16:04:40 Active or passive immunization 593826046 Z23 Screening mammography 24 968817 Z12.31 has appt Postmenopausal state 764 11483 Z78.0 has appt for bone density Elevated blood-pressure reading without diagnosis of hypertension 297737036 R03.0 BP stable and at goal < [...] lower your blood pressure. Burn of skin 446971543 T 30.[address] refill topical Anterior c hest wall pain 936133440 R07.89 Right sided chest tenderness x weeks, worse with movementAd mittedly exerting self last week with groceries, cleaningDi scharged from [facility] ER 06/06/24 after normal EKG, labs incl. troponin and D-dimerImp roved today with heat, restH&P c/w likely muscular etiology - continue Tylenol, heat, restRTO if symptoms persist or worsen, if you develop any crushing chest pain or SOB Nocturia 425074233 R35.1 Increasing ly frequentA1 c 2022 prediabeti c - repeatAdvi se limiting fluids at night, scheduled bathroom tripsHX stonesMay want to get PVR if persists Prediabetes 154399986 R7 3.03 [id number] Jaiden Baker MD , [facility], [address] [place] [address] 06/10/2024 14:55:47 06/11/2024 18:16:05 [id number] Jaiden Baker MD , [facility], [address] [place] [address] 07/02/2024 09:25:45 07/02/2024 10:07:34 Active or passive immunization 364948976 Z23 Vaccines updated from [facility] 06/28/24 cc Postmenopausal state 764 04268 Z78.0 Bone Density ordered 01/19/24 cc Essential hypertension 49227237 I10 BP above goal <130/80in ED 06/06 [...] labs prior to f/u 1 mo Prediabetes 394037766 R7 3.03 recheck a1c with labs [id number] RADHIKA BILLINGS PA-C , [facility], [address] [place] [address] 09/05/2024 11:02:44 09/05/2024 12:54:31 Postmenopausal state 03966442 Z78.0 Ordered 01/19/24, pt no longer interested 09/05/24 cc Essential hypertension 44435256 I10 BP above goal but is improvedan xiety could be contributi ngdeclines to increase/a lter her medication at this timewill continue 150mg irbesartan for nowcontinu e home checks/log gingf/u 1 month to reassessla bs reviewed - WNL Anxiety 55404109 F41.9 stress/anx iety related to son's mental health, he's currently in the hospital awaiting psych admissionP [facility] resources offered, she declines but will reach out if she changes her mind Hypertriglyceridemia 302 327579 E78.2 stable, continue fenofibrat ewill continue to monitor Impaired f asting glycemia 901040942 R73.01 no longer in pre diabetic range!will continue to monitor [id number] RADHIKA BILLINGS PA-C , [facility], [address] [place] [address] 11/07/2024 10:45:55 11/07/2024 11:31:36 Postmenopausal state 20577545 Z78.0 Ordered 01/19/24, pt no longer interested 09/05/24 cc, not interested 11/07/24 cc Essential hypertension 78149210 I10 BP avg above goalhigh daily stress contribute s (130s/70s when not stressed)r ec to increase to 300mg irbesartan , she declines and will continue the 150mg dose; declines alternativ e medication optionscon tinue home checks/log gingf/u 2-[address] labs WNL Anxiety 55295467 F41.9 high stress/anx iety mainly related to son's mental health, he's no longer living with them which has [facility]PC[facility] resources discussed and offered again today, she declines but will reach out if she changes her mind Pain of ri ght knee joint 3077585431 69462 M25.561 s/p knee replacemen t in 50s and has had issues sincewas following with [facility], declines to f/u with them, [facility], or Dr. Jane repeat xray, last done in 2022encour aged to consider PT and call if interested in referral Dysfunctio n of bilateral eustachian tubes 2098055508 600720 H69.93 - symptoms consistent with ETD- reassuranc e given- recommende d consistent use of Flonase (1 spray per nostril twice daily) for a minimum of 2 weeks to open the eustachian tubes; can also trial daily antihistam ine- discussed may take several weeks to clear/impr ove, call if worsening [id number] OMID WRIGHT , [facility], [address] [place] [address] 11/22/2024 15:06:08 11/22/2024 17:13:02 Screening mammography 33276913 Z12.31 Has scheduled 11/22/24 SD Postmenopausal state 764 61240 Z78.0 Ordered 01/19/24, pt no longer interested 09/05/24 cc, not interested 11/07/24 cc Declines 11/22/24 SD Essential hypertension 08423721 I10 BP above goalhigh daily stress contribute s (130s/70s when not stressed)r ec to increase to 300mg irbesartan , she declines and will continue the 150mg dose; declines alternativ e medication optionscon tinue home checks/log gingf/u as scheduled in a few months to check inlast labs WNL Anxiety 13790902 F41.9 high stress/anx iety mainly related to son's mental health, he's no longer living with them which has helpedPCBH resources discussed and offered again today, she declines but will reach out if she changes her mind Pain of ri ght knee joint 6257533201 26687 M25.561 s/p knee replacemen t in 50s and has had issues sincewas following with [facility], declines to f/u with them, [facility], or Dr. Castillo at imaging reassuring - WNL Pain of ri ght hip joint 0088051295 80414 M25.551 worsening RLE pain with notable discomfort with hip ROMR knee xrays reviewed and WNL s/p surgerywil l order additional hip/pelvis and SI imaging and f/u thereafter call in the interim with any worsening symptoms [id number] Jaiden Baker MD , [facility], [address] [place] [address] 02/07/2025 10:59:45 02/07/2025 11:32:01 Pain of right hip joint 8860989718 12459 M25.551 Been following with ortho, recently had [...] care Pain of ri ght knee joint 7611257631 64727 M25.561 - been following with ortho- see plan above Essential hypertension 60015326 I10 BP at goal in office today- high daily stress contribute s to higher BP at home- continue current dose of irbesartan - continue home checks/log ging- f/u in a few months to check in Anxiety 59235168 F41.9 high stress/anx iety mainly related to [...] Member ID Guarantor Name 02/06/2025 1 [place]: [facility] ([facility] [id number] Len Jones [id number] Aylin Robert Notes Date Note Type Note Provider Name and Address Organization Details Recorded Time 07/02/2024 text/html 07/02/24-here fo r BP f/u has anxiety around taking BP readings at homefelt dizzy, stopped taking BP at home and feels hdwvhy28/8 - 153/83, 163/9510/12 - 144/86, 152/9110/13 - [...] nightly to use bathroom. Nickolas Guerra MD [address] [place] [address], [place], [address], [facility] 07/02/2024 10:46:05 09/05/2024 text/html 09/05/24- BP f/u [...] stopped taking BP at home and feels hhcqli80/8 - 153/83, 163/9510/12 - 144/86, 152/9110/13 - [...] nightly to use bathroom. 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 RADHIKA BILLINGS PA-C [address] [place] [address], [phone], [facility] 11/07/2024 11:21:05 11/22/2024 text/html 11/22/24 c/o ongo ing R leg issues, see case #[id number]. SD feels pain she thought was her knee might not be her kneewhen going from bending to standing up, getting socks on, drying off after shower painfulpain starts around R knee, can be all the way down, radiates up to R hip and buttocksfeels area more or less gives outno issues w/ walking normally RADHIKA BILLINGS PA-C [address] [place] [address], [phone], [facility] 11/22/2024 15:40:02 02/07/2025 text/html 02/07/25 69 year [...] c/o ongoing R leg issues, see case #[id number]. 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 Student name: Karendavid Type: JF Patient presents to office today [...] nightly to use bathroom. RADHIKA BILLINGS PA-C [address] [place] [address], [phone], [facility] 02/07/2025 12:14:25 OBGyn Episode No OBEpisode recorded.
[2025-03-12 10:25] VITALS: BMI 31.2
--- NOTE | ~2025-03-14 | FL_ITS ---
EXAMINATION: FL GUIDANCE ONLY HISTORY: DX L3, L4, L5 MBB, BILATERAL COMPARISON: None available. TECHNIQUE: Fluoroscopy time: 40.8 seconds. Cumulative Dose: 19.928 mGy. DAP: 7.5842 mGym2 Images: 12. FINDINGS: Multiple fluoroscopic spot films of the lumbar spine in the AP projection demonstrate needles and contrast material in the regions of the bilateral L3-4, L4-5, and L5-S1 facet joints. FL/FL guidance in OR IMPRESSION: Fluoroscopy during procedure. Please see procedure report for additional information. Electronically signed by: Sylvester Fields MD 03/14/2025 12:41 PM EDT
[2025-03-14 09:36] VITALS: BMI 31.7
[2025-03-14 09:52] VITALS: BP 148/77; PULSE 73; RESP 18; TEMP 36.7; O2SAT 97
--- NOTE | 2025-03-14 11:03 | MHC.SHP ---
Pre-Procedural Eval Section A - 24 Hr Update-Section A only Date of Service: 03/14/25 The patient is an INPATIENT: No Changes since office visit: Yes Patient answered all questions The patient has been examined within 24 hours of the surgical procedure. 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 Relevant Family History (Specify if Yes): No Relevant Social History: None Present Medications: see Short Stay Collaborative assessment Medical History: No relevant PMH History of Previous Operations: No relevant previous surgery Allergies: Allergies Allergy/AdvReac Type Severity Reaction Status Date / Time Iodinated Contrast Media Allergy Severe Anaphylaxis Verified 03/14/25 09:39 Review of Systems Sugical H&P ROS: Negative: Constitution, Cardiovascular, Respiratory, Neurological, Psychiatric, Hem-Onc, Allergic/Immunologic, Gastrointestinal, Genitourinary, Musculoskeletal, Integumentary, Endocrine and Eyes/Ears/Nose/Throat Exam Surgical H&P Exam: Normal: HEENT, Normal: Heart, Normal: Lungs, Normal: Extremities, Normal: Abdomen, Normal: Skin and Normal: Neurological Plan Diagnosis/Plan: Unchanged I have reviewed the history and physical and performed a pertinent physical examination on my patient. No changes have occurred unless specified. Time Spent With Patient Time: Total time managing care of this patient today _15___ minutes.
--- NOTE | 2025-03-14 11:39 | P.BOP_ITS ---
Brief Operative Note Date of Service: 03/14/25 Pre-op diagnosis: Spondylosis lumbar without myelopathy or radiculopathy Post-op diagnosis: same Procedure: Bilateral medial branch block L3, L4, dorsal ramus L5 diagnostic. Surgeon: Ko Herrera MD Anesthesia: local Was an Wood Lather used for this Procedure?: No Estimated blood loss (mL): 0 Condition: stable Disposition: PACU
--- NOTE | 2025-03-14 11:40 | P.OP_ITS ---
Operative Note Operative Note Date of Service: 03/14/25 Narrative: Diagnostic medial branch block L3,L4 dorsal ramus L5 bilateral.? ? ?Informed consent was explained to the patient. All questions were explained and? answered.? The patient was taken inside the operating room where she was positioned prone on the operating table. Time-out was performed delineating correct site, side, the nature of the procedure, patient's allergy, . All operating room staff was participating in OR time-out procedure. ? ? The lower back was prepped with ChloraPrep and draped with sterile towels.? C- arm was brought over the operating field and sq picture of L4-, L5 vertebra and S1 AREA were delineated on the screen.? Point of interest were delineated as confluence of superior articular process of L4 and L5 vertebra bilaterally with corresponding transverse processes as well as confluence of the sacral ala bilaterally with superior articular process of S1.? The projection of the point of interest to the skin were injected with the small amount of local anesthetic lidocaine 2% mixed with ropivacaine 0.5% 1-1 approcimately 1 cc.? After that 22 gauge 5 inch spinal needle was driven sequentially to the points of interest in tunnel vision fashion. After needles gently contacted the bone at the point of interests the needle was injected with small amount of the contrast.? The injection of the contrast did not demonstrate any intravascular or intrathecal spread of the contrast.? After that injection of the? ropivacaine 0.5%-1cc was performed at each needle location. ?after that the needles were removed and Bandaids were applied.
[2025-03-14 11:50] VITALS: BP 138/75; PULSE 68; RESP 16; TEMP 36.6; O2SAT 97
== END 2025-03-14 12:33 | disposition home or self-care (01) ==
PROVIDERS: PCP Physician Assistant; Visit Provider Anesthesiology
PROC: (CPT 64493; principal; 2025-03-14 11:40)
DX: M51.369 Other intervertebral disc degeneration, lumbar region without mention of lumbar back pain or lower extremity pain (principal); M47.816 Spondylosis without myelopathy or radiculopathy, lumbar region; I83.813 Varicose veins of bilateral lower extremities with pain; I10 Essential (primary) hypertension; L43.9 Lichen planus, unspecified; G47.00 Insomnia, unspecified; M54.50 Low back pain, unspecified; Z87.442 Personal history of urinary calculi; Z79.899 Other long term (current) drug therapy; Z91.040 Latex allergy status
CPT/HCPCS: 64493; 64494; A9585; J2003; J2795; Q9967

== ENCOUNTER → 2025-03-14 09:16 | Outpatient (BNV) | payer BC, SELFPAY | PROVIDERS: PCP Physician Assistant; Visit Provider Anesthesiology | DX: M47.816 Spondylosis without myelopathy or radiculopathy, lumbar region (principal) | CPT/HCPCS: 64493; 64494 ==

== ENCOUNTER 2025-03-18 11:27 | Outpatient (AMB) | payer BC, SELFPAY ==
--- NOTE | 2025-03-18 11:30 | MHC.OFFVIS ---
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 The patient underwent a diagnostic bilateral L3-L4-DR L5 medial branch blocks on March 14, 2025, with Dr. Herrera. She reports her pain as 0/10 since the procedure, indicating a good response to the intervention. She reviewed [employer] and RFA pamphlets at home with her family but is hesitant towards next procedures as her pain is minimal and back pain comes and goes. The patient developed an itchy rash the day after the procedure, which she describes as a fine pink rash primarily on her back but has widespread over her body over the past few days. She did not report the rash immediately and has been experiencing discomfort due to the rash. Patient received a small amount of local anesthetic lidocaine 2% mixed with ropivacaine 0.5% 1-1 approximately 1 cc and small amount of the contrast per Dr. Herrera's procedure notes. She also reports significant diarrhea last weekend. Patient denies any abdominal pain, fever or chills. She has been taking anti-histamine at home for rash with mild relief. Patient presents with asymptomatic elevated BP, reports she usually takes her BP medication at bedtime. She is encouraged to monitor her BP at home and follow up with her PCP for elevated BP. The patient also reports chronic right hip pain, which she describes as occurring in the hip and groin area, with some pain radiating to right leg. She uses heat and ice for relief. She completed hip and pelvis xrays at [facility], these results are not available today. She uses heat and ice for relief of hip pain and prefers to avoid medications. Past Procedures: 03/14/25: Bilateral diagnostic L3-L4 DR L5 MBB-100% ongoing pain relief PRIOR: The patient is a 69-year-old female presenting with acute on chronic low back pain and discussion for an injections as recommended by [facility]. She reports a sudden onset of severe pain about two months ago, with the pain starting in the lower back, spreading around the hips, and extending to the right thigh. No triggering event was identified, and the pain is described as stabbing and throbbing in nature, with episodes severe enough to reach a pain scale rating of 10. Associated symptoms include pain radiating to the thigh, specifically the right thigh, and a sensation similar to compression. The patient denies experiencing constant back spasms but notes discomfort similar to misalignment or throbbing like with kidney stones within the affected areas. This patient's medical history is notable for prior arthritis, hypertension, a knee replacement 15 years ago, and a history of hysterectomy. She reports allergic reactions to iodine IV dye. The patient has addressed her pain using Tylenol Arthritis without relief. She also has a documented history of kidney stones. Per referral notes, MRI done at [facility] on 12/19/24 shows severe degenerative disc disease L2-3, L1-L2 and T12-L1, serving as a potential concerns for her current symptoms, alongside confirmed sacroiliac joint dysfunction. She has completed physical therapy and chiropractic adjustments in the past with minimal to no pair relief. - Onset: Sudden onset roughly two months ago - Quality: Stabbing, aching, pulling, sharp, heavy, dull and throbbing - Primary Location: Lower back - Radiation: To the hips and right thigh - Exacerbating Factors: Sleeping and bending, extending backwards, upright positions - Relieving Factors: Tylenol Arthritis, activity modifications with minimal relief - Impact on Function: Difficulty in rising from bed due to significant pain - Affect: Pain disrupts patient's sleep; significant discomfort noted. - Analgesia: Taking Tylenol Arthritis for pain management; severity reaches 10 at worst, aiming for daily relief. - Adverse Effects: Allergy to iodine confirmed. - Activities of Daily Living: Pain affects ability to rise, possibly impacting chores and activities. - Aberrant Drug-Related Behaviors: No reported misuse of medication. Oswestry Low Back Pain Disability=13 [facility] Medical History (Updated 03/18/25 @ 12:34 by AIDEE Mcdonnell) Dextroscoliosis of lumbar spine Chronic right hip pain Low back pain Lumbar degenerative disc disease Baastrups syndrome Renal calculi Varicose veins of both lower extremities Insomnia Lichen planus of genitalia Arthritis HTN (hypertension) Surgical History Hx of hysterectomy History of carpal tunnel release of both wrists History of foot surgery H/O hand surgery History of total right knee replacement (~2009) Social History Are you a primary early breastfeeding care specialist to a significant other at home: No Do you presently have visiting nurse or other home services: No Alcohol intake: never Patient Tobacco Use Status: Never used Tobacco Review of Systems Const All systems reviewed & are unremarkable except as noted in HPI and below Physical Exam General: Appears afebrile. Alert and oriented. Mood and affect appropriate. Follows and participates in conversation appropriately. Respiratory effort is unlabored. No cough. Able to transition from sit to stand unassisted. Ambulates with bilaterally normal heel strike and toe off. General: Yes no CVA tenderness Back/Spine/Pelvis Other: Limited lumbar ROM due to pain. Mildly antalgic gait. No limping. Lumbar extension and axial rotations reproduce moderate pain, lumbar flexion forward and bending reproduces mild pain. Demonstrates 5/5 strength of quadriceps bilaterally as well as flexion/dorsiflexion of bilateral feet against resistance. 2+ pedal pulses bilaterally. Straight leg rise with dorsiflexion negative bilaterally. +2 patellar and achilles reflexes bilaterally. Facet loading test positive bilaterally. Arpit?s and Stinchfield tests are negative bilaterally. Mild right groin pain with I/E hip rotations. Valsalva maneuver negative. Back: no CVA tenderness Cervical Spine: cervical ROM normal, No cervical muscular tenderness, pain with cervical ROM and No Cervical spine tenderness Thoracic/Lumbar Spine: thoracic and lumbar spine normal to inspection, No Thoracic/lumbar spine scar(s), Lasegue's sign positive bilateral and diffuse, pain with thoraco-lumbar ROM, paraspinal muscle tenderness, thoraco-lumbar ROM limited, Thoracic/lumbar scoliosis, No thoracic spinal tenderness and lumbar spinal tenderness (L4-S1) Pelvis: buttock tenderness on the right Sacroiliac joints: bilaterally tender to palpation (mild) Skin Rashes: rashes noted (Widespread body hives and rash noted with urticaria, worse mid/low back) Extrem General: Yes capillary refill normal, Yes no clubbing, cyanosis or edema and Yes other (RLE varicose veins with inflammation, no pain per patient) Results Reviewed Results Reviewed: Assessment & Plan Assessment & Plan (1) Lumbar degenerative disc disease: Code(s): M51.369 - Other intervertebral disc degeneration, lumbar region without mention of lumbar back pain or lower extremity pain Category: Medical (2) Low back pain: Code(s): M54.50 - Low back pain, unspecified Category: Medical (3) Muscle spasm of back: Code(s): M62.830 - Muscle spasm of back Category: Medical (4) Sacroiliitis: Code(s): M46.1 - Sacroiliitis, not elsewhere classified Category: Medical (5) Lumbosacral spondylosis: Code(s): M47.817 - Spondylosis without myelopathy or radiculopathy, lumbosacral region Category: Medical (6) Chronic right hip pain: Code(s): M25.551 - Pain in right hip; G89.29 - Other chronic pain Category: Medical Plan The patient will be prescribed prednisone to manage the widespread rash, with instructions to monitor blood pressure due to potential elevation from the medication. If the rash persists or if there are any adverse reactions, the patient is advised to contact both the clinic and her primary care physician. We discussed Allergy Referral, patient declined due to previous unpleasant experience with testing. For the hip pain, further evaluation is needed, including obtaining the results of the hip x-ray to determine the presence of arthritis or other underlying conditions. The patient is advised to continue using heat and ice for symptomatic relief. For axial low back pain, patient continues with complete pain relief since recent diagnostic lumbar MBBs. She prefers to hold off on further interventional treatments until her pain returns to baseline. The patient is encouraged to follow up with her primary care physician to address blood pressure management. She will continue with antihistamine at home and hold off prednisone if BP remains elevated. All questions and concerns have been answered and patient agreed with the plan. Follow up as needed. Patient was informed and verbally consented to the use of an ambient scribe for clinic note documentation during this visit. Medications: New prednisone 20 mg PO BID 10 tabs 0RF rash 5 days L27.0 - Generalized skin eruption due to drugs and medicaments taken internally Coding Level of Care Code Est Pt Level 4 (65247) Complex EM visit Add On G2211 Diagnoses Lumbar degenerative disc disease M51.369 Low back pain M54.50 Muscle spasm of back M62.830 Sacroiliitis M46.1 Lumbosacral spondylosis M47.817 Chronic right hip pain M25.551; G89.29
[2025-03-18 11:39] VITALS: BP 211/108; PULSE 98; O2SAT 97; BMI 31.3
[2025-03-18 11:40] VITALS: BP 181/92; PULSE 84
--- OUTSIDE RECORDS SUMMARY | 2025-03-18 12:50 | XMS_ITS | Data Portability ---
Author Organization [facility], [facility] Address [address] [place] [address] Care Team Providers Care Identification Clerk Name Role Phone TOMAS MCCORMACK Orthopedic Surgeon [phone] ARIADNE MITCHELL Orthopedic Surgeon TONE GARY Senior Engineer FRANCIA NORRIS Facility Assistant RADHIKA BILLINGS Primary Care Provider [phone] TAISHA COX Aquatic Facility Manager Assessment No assessment recorded. Plan of Treatment Reminders Order Date Submit Date Provider Last Modified By Organization Details Last Modified Time Details Appointments Foll ow Up, 15 2024 11:00A M RADHIKA BILLINGS PA-C Not available Not available Not available Mamm ogra m, Scre enin g 2024 11:30A M [facility] Mammography Not available Not available Not available Lab None ian rded . Referral None ian rded . Procedures None ian rded . Surgeries None ian rded . Imaging XR, hip + pelv is, unil ater al, 2 or 3 view - R hip pain wors enin g 2024 025 [facility] (Imaging), [address], [place], [address], 11/25/2024 11:36:35 XR, sacr oili ac join t(s) - radi atin g R hip pain wors enin g. 2024 025 [facility] (Imaging), [address], [place], [address], 11/25/2024 11:39:42 XR, knee , weig htbe jhonny g - wors enin g R knee pain , s/p knee repl acem ent in 50s 2024 025 [facility] (Imaging), [address] [place], [address], 11/07/2024 13:29:35 Medication Orders irbe sart an 150 mg tabl et 2024 025 atul luna [facility], [place], [address], 09/05/2024 12:44:13 losa rtan 25 mg tabl et 2023 024 [facility], [place], [address], 07/23/2024 09:15:11 Patient TargetsNo targets recorded. Patient InstructionsNo instructions recorded. Reason for Referral None Reported. Results Created Date Observation Date Name Description Value Unit Range Abnormal Flag Note LastModifiedBy Organization Detail LastModifiedTime 08/30/2008/30/2024 LIPID PANEL cholesterol 198 mg/dL <200 mg/dl Sosa able 200-2 39 mg/dl Borde rline High >240 mg/dl High Not Available [address], [address], 08/30/2024 14:06:11 08/30/20 24 08/30/2024 LIPID PANEL triglyceride s 227 mg/dL <150 mg/dL Rona l 150-1 99 mg/dL Borde rline High 200-4 99 mg/dL High >500 mg/dL Very High Not Available [address], [address], 08/30/2024 14:06:11 08/30/20 24 08/30/2024 LIPID PANEL direct HDL 42 mg/dL <40 mg/dl - Major Risk for CHD >60 mg/dl - Negat masha Risk for CHD Not Available [address], [address], 08/30/2024 14:06:11 08/30/20 24 08/30/2024 LDL - CALCU LATED LDL - calculated 111 RISK CATEG ORY LDL GOAL _ CHD or CHD Risk Equiv alent s <100 mg/dl (10-y ear risk >20%) 2+ Risk Facto rs <130 mg/dl (10-y ear risk <= 20%) 0-1 Risk Facto r <160 mg/[facility] e with 0-1 risk facto r have a 10 year risk <10%, thus 10 year risk asses ment in peopl e with 0-1 risk facto r is not eileen craig. Not Available [address], [address], 08/30/2024 14:06:12 08/30/20 24 08/30/2024 BASIC METAB OLIC PANEL glucose 107 mg/dL 70-100 high Not Available [address], [address], 08/30/2024 14:12:15 08/30/20 24 08/30/2024 BASIC METAB OLIC PANEL BUN 18 mg/dL 7-18 Not Available [address], [address], 08/30/2024 14:12:15 08/30/20 24 08/30/2024 BASIC METAB OLIC PANEL creatinine 0.8 mg/dL 0.8-1. 3 Not Available [address], [address], 08/30/2024 14:12:15 08/30/20 24 08/30/2024 BASIC METAB OLIC PANEL B/C 22.5 ratio Not Available [address], [address], 08/30/2024 14:12:15 08/30/20 24 08/30/2024 BASIC METAB [...] be used in pregn isabell. Not Available [address], [address], 08/30/2024 14:12:15 08/30/20 24 08/30/2024 BASIC METAB OLIC PANEL sodium 143 mmol/ L 136-14 5 Not Available [address], [address], 08/30/2024 14:12:15 08/30/20 24 08/30/2024 BASIC METAB OLIC PANEL potassium 4.2 mmol/ L 3.5-5. 1 Not Available [address], [address], 08/30/2024 14:12:15 08/30/20 24 08/30/2024 BASIC METAB OLIC PANEL chloride 107 mmol/ L 96-107 Not Available [address], [address], 08/30/2024 14:12:15 08/30/20 24 08/30/2024 BASIC METAB OLIC PANEL anion gap 13.7 5.0-15 .0 Not Available [address], [address], 08/30/2024 14:12:15 08/30/20 24 08/30/2024 BASIC METAB OLIC PANEL CO2 26 mmol/ L 21-32 Not Available [address], [address], 08/30/2024 14:12:15 08/30/20 24 08/30/2024 BASIC METAB OLIC PANEL calcium 9.0 mg/dL 8.5-10 .3 Not Available [address], [address], 08/30/2024 14:12:15 08/30/20 24 08/30/2024 HGB A1C [...] furth er confi rmati on Not Available [address], [address], 08/30/2024 14:16:01 08/30/20 24 08/30/2024 HGB A1C estimated average glucose 114.0 mg/dL Not Available [address], [address], 08/30/2024 14:16:01 06/27/20 24 06/27/2024 MAMMO , [...] Yrn valiente Physic wilfrido: Melecio Son [email or web address] [facility] (Imaging) [address] [place], [address], 06/27/2024 14:54:26 11/08/19 25 11/07/2024 XR, knee, [...] . Yrn valiente Physic wilfrido: Melecio Son [email or web address] [facility] (Imaging) [address] [place], [address], 11/21/2024 09:20:44 11/26/19 25 11/25/2024 XR, hip [...] report . Yrn valiente Physic wilfrido: [facility] [address] [place], [address], 11/26/2024 13:54:31 11/26/19 25 11/25/2024 XR, sacro [...] Yrn valiente Physic wilfrido: Randall Maldonado [facility] ([facility]) [address] [place], [address], 11/26/2024 13:54:32 02/15/20 25 12/19/2024 MRI, lumba r spine , w/o contr ast No observ ation record ed. [email or web address] Not Available 2024 08:21:09 Result Notes Documentation [...] knee arthroplasty. No abnormality.. Reading Phys[facility] 11/21/2024 09:20:45 Xr, Hip + Pelvis, Unilateral, [...] report. Reading Physician: Randall Ashford Not Available [facility] 11/26/2024 13:54:31 Xr, Sacroiliac Joint(s) : CLINICAL HISTORY: Radiating right hip pain worsening TECHNIQUE: 3 views of the sacrum, coccyx and sacroiliac joints are obtained. 3 images. COMPARISON: Pelvis/right hip radiograph same day. FINDINGS: No acute fracture seen. Some degenerative changes within the spine. No sacroiliac joint dislocation. IMPRESSION: No acute bony abnormality. Reading Physician: Randall Ashford Not Available [facility] 11/26/2024 13:54:32 Problems Name Problem SNOMED Code Status Onset Date Resolution Date Notes Provider Name and Address Organization Details Recorded Time Mixed hyperlip idemia 748597444 Completed 11/26/2015 Justine Weston D.O. [address] [place], [address], [facility] 6 11:49:47 Abnormal gait 56521571 Completed 11/26/2015 Justine Weston D.O. [address] [place], [address], [facility] 6 11:49:47 Kidney stone 24679201 JF Paul [address] [place], [address], [facility] 2 11:52:44 Osteoart hritis of joint of hand 56220956 JF Paul [address] [place], [place] [address] [place], [address], [facility] 2 11:52:48 Polyp of colon 85964675 Active 2016 adenomat ous polyp, last colo 01/2018 repeat 3 yrs JF Richards [address] [place], [place] [address], [place], [address], [facility] 2 11:52:52 Obesity 102813336 Active 2017 JF Richards [address] [place], [place] [address] [place], [address], [facility] 2 11:52:38 Osteoart hritis 537402788 Active 2021 JF Julio [address] [place], [place] [address] [place], [address], [facility] 2 10:27:01 Pain of right knee joint 53071135715 4100 Active 2022 s/p total replacme nt. JF Julio [address] [place], [place] [address] [place], [address], [facility] 3 09:27:20 Carpal tunnel syndrome of right wrist 22566144893 9108 Active 2022 JF Julio [address] [place], [place] [address] [place], [address], [facility] 3 09:27:37 Hypertri glycerid emia 609544184 Active 2022 JF Julio [address] [place], [place] [address] [place], [address], [facility] 3 09:40:55 Impaired fasting glycemia 556452600 Active 2022 JF Julio [address] [place] [address] [place], [address], [facility] 3 15:40:39 Prediabe kimberli 820177941 Active 2022 JF Julio [address] [place] [address] [place], [address], [facility] 3 11:26:08 Chest pain 42223714 Active 2023 [facility] 4 10:06:59 Ess[facility]ia l hyperten keli 78584067 Active 2023 JF Julio [address] [place] [address] [place], [address], [facility] 4 10:03:30 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 Procedures Surgical History Date Name Laterality Status Provider Name and Address Organization Details Recorded Time 023 Medicare Wellness Visit completed Tabitha Torres MA [facility] 03/06/2023 08:47:08 023 Cardiovascular disease risk reduction counseling completed JF Julio [address] [place] [address], [address], [facility] 03/06/2023 09:50:21 022 Medicare Wellness Visit completed Thi Armendariz MA [facility] 11/23/2021 16:23:42 018 Colonoscopy completed Maurice Freeman NP [address] [place] [address], [address], [facility] 02/06/2018 19:32:13 016 Tasxochilti - Colonoscopy completed Adonis Rodriguez MD [address] [place] [address], [address], [facility] 07/18/2016 08:07:16 completed Yasmin Lacy LPN [facility] 06/08/2012 09:40:06 Total Hysterectomy completed Yasmin Lacy LPN [facility] 06/08/2012 08:53:54 Tonsillectomy completed Yasmin Lacy LPN [facility] 06/08/2012 08:53:54 Cystourethroscopy completed Yasmin Lacy LPN [facility] 06/08/2012 09:40:06 Imaging Results None recorded. Procedure Notes None recorded. Medical Equipment None Reported. Allergies Allergen ID Allergen Name Allergen Category Reaction Reaction Severity Criticality Documentation Date Start Date Code Code System Note Provider Name and Address Organization Details Recorded Time 137128 Aleve medicatio n itching Not available Not available 06/05/2012 16110 1 RxNorm Aleve -D Jana Salmeron [facility] 2 14:01:43 126072 Product containin g penicilli n (product) medicatio n Not available Not available Not available 06/05/2012 [address] [facility] 2 11:03:18 153427 Keflex medicatio n nausea Not available Not available 06/05/201213498 [address] [facility] 2 11:03:18 346564 Macrodant in medicatio n Not available Not available Not available 06/05/[address] [facility] 2 11:03:18 967976 Iodinated contrast media (substanc e) medicatio n respirato ry distress Not available Not available 06/08/2012 09962 2004 SNOMED Yasmin Lacy L[address] [facility] 2 08:56:47 189956 losartan medicatio n Not available Not available Not available 07/09/2024 37026 RxNorm dizzy /upse t stoma ch JF Julio [address] [place], [place] [address] [place], [address], [facility] 4 11:31:52 287139 lisinopri l medicatio n Not available Not available Not available 07/30/2024 69616 RxNorm cough RADHIKA BILLINGS PA-C [address] [place], [place] [address] [place], [address], [facility] 4 10:46:48 Medications Name Sig Start Date [...] Not Available Not Available Not Available fluocinon terire 0.05 % topical ointment 11/29 completed Not [...] -hydrocor t 3.5 mg-10,000 unit/mL-1 % ear drops,etjas p INSTILL 3 DROPS INTO EACH EAR [...] dropperet te 11/24 completed not taking 11/24/21 [email or web address] Not Available Not Available Not Available Flucelvax [...] blood by Pulse oximetry Heart rate Systolic And Diastolic Systolic And Diastolic Provider Name and Address Organization Details Last Updated DateTime 5 175.26 cm 30.5 kg/m2 35753.4 3 g 97 % 97 % 74 /min 148/86 mm[Hg] 144/81 mm[Hg] Karen Summers [facility] 5 11:16:01 Date Recorded Body height Oxygen saturation Oxygen saturation in Arterial blood by Pulse oximetry Heart rate Body mass index (BMI) Body weight Systolic And Diastolic Systolic And Diastolic Provider Name and Address Organization Details Last Updated DateTime 5 175.26 cm 98 % 98 % 74 /min 30.9 kg/m2 52689.8 1 g 152/88 mm[Hg] 132/74 mm[Hg] Karen Summers MA [facility] 5 10:57:01 Date Recorded Systolic And Diastolic Provider Name and Address Organization Details Last Updated DateTime 11/22/2024 146/90 mm[Hg] RADHIKA BILLINGS PA-C [address] [place] [address], [address], [facility] 11/22/2024 15:31:33 Date Recorded Body height Heart rate Oxygen saturation Oxygen saturation in Arterial blood by Pulse oximetry Systolic And Diastolic Provider Name and Address Organization Details Last Updated DateTime 5 175.26 cm 74 /min 96 % 96 % 164/92 mm[Hg] Ade Montes CMA [facility] 5 15:18:13 Date Recorded Body height Body mass index (BMI) Body weight Heart rate Oxygen saturation Oxygen saturation in Arterial blood by Pulse oximetry Systolic And Diastolic Provider Name and Address Organization Details Last Updated DateTime 5 175.26 cm 31.4 kg/m2 76199.3 8 g 74 /min 98 % 98 % 126/78 mm[Hg] Christiano Lacy [facility] 5 11:08:21 Date Recorded Body height Body mass index (BMI) Body weight Oxygen saturation Oxygen saturation in Arterial blood by Pulse oximetry Heart rate Systolic And Diastolic Systolic And Diastolic Provider Name and Address Organization Details Last Updated DateTime 4 175.26 cm 31.2 kg/m2 27479.9 9 g 97 % 97 % 70 /min 144/88 mm[Hg] 140/86 mm[Hg] Karen Summers [facility] 4 09:39:28 Date Recorded Systolic And Diastolic Provider Name and Address Organization Details Last Updated DateTime 07/25/2024 140/80 mm[Hg] RADHIKA BILLINGS PA-C [address] [place] [address], [address] 07/25/2024 08:39:43 Social History Question Answer Notes LastModified by Organizat ion Details LastModified Time Tobacco Smoking Status Never Smoker Jana Jaron [facility] 06/11/2012 14:10:46 What Is Your Level Of Caffeine Consumption? Moderate 2-4 Coke's A Day [email or web address] Information not available 06/11/2012 How Much Tobacco Do You Chew? None Information not available 06/11/2012 What Type Of Diet Are You Following? REGULAR [email or web address] Information not available 06/11/2012 Which Illicit Or Recreational Drugs Have You Used? None [email or web address] Information not available 06/11/2012 Education 12 Information no t available 06/11/2012 Are There Any Guns Present In Your Home? No [email or web address] Information not available 11/26/2015 Do You Use Insect Repellent Routinely? No [email or web address] Information not available 11/24/2021 Live Alone Or With Others? With Others [email or web address] Information not available 06/11/2012 Patient Has Health Care Proxy Signed And In Chart Yes [email or web address] Information not available 08/22/2018 MOLST Form Signed And In Chart 05/02/2023 [email or web address] Information not available 05/04/2023 Marital Status Informatio n not available 06/11/2012 Mosquito Repellent Used Routinely No [email or web address] Information not available 06/11/2012 What Was The Date Of Your Most Recent Tobacco Screening? 02/07/2025 [email or web address] Information not available 02/07/2025 How Many Children Do You Have? 2 Grown [email or web address] Information not available 06/11/2012 Do You Use Your Seat Belt Or Car Seat Routinely? Yes Information not available 11/24/2021 Seat Belts Used Routinely Yes Information not available 06/11/2012 Are You Sexually Active? No Please Do Not Ask Patient At Visits [email or web address] Information not available 12/12/2018 Smoke Alarm In Home Yes [email or web address] Information not available 06/11/2012 Do You Have Smoke And Carbon Monoxide Detectors In Your Home? Yes [email or web address] Information not available 11/24/2021 Are You Passively Exposed To Smoke? No [email or web address] Information not available 03/06/2023 General Stress Level High [email or web address] Information not available 06/11/2012 Do You Use Sunscreen Routinely? Yes As Needed [email or web address] Information not available 11/26/2015 Sex: Unknown Functional Status Question Answer Note LastModified by Organization D etails LastModified Time What is your level of alcohol consumption? 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 None [email or web address] Information not available 11/24/2021 Mental Status None [...] Immunizations Vaccine Type Date Status Note Provider Artie prabhakar and Address Organization Details Recorded Time influenza, seasonal, intradermal, preservative free 2 completed Not Available [facility] 09/21/2019 02:18:38 Tdap 4 completed Not Available [facility] 09/21/2019 02:16:08 Influenza, split virus, trivalent, preservative 3 completed GORDNO Shepherd, [facility] 11/21/2013 08:42:26 zoster live 5 completed Geovanna Juarez [facility] 11/26/2015 11:08:26 influenza nasal, unspecified formulation 5 completed Geovanna [facility] LPN [facility] 11/26/2015 11:08:26 Influenza, split virus, quadrivalent, preservative 6 completed [facility] 05/25/2016 11:22:41 Influenza, split virus, quadrivalent, preservative [address] [facility] 05/16/2017 12:25:26 Influenza, split virus, quadrivalent, preservative 8 completed Lynette Bell MA [facility] 05/18/2018 13:47:33 Tdap 9 completed [facility] 06/28/2024 09:34:33 Influenza, split virus, quadrivalent, preservative 0 completed Evelia Stout PA-C [address] [place] [address], [address], [facility] 06/17/2020 11:08:29 Pneumococcal conjugate PCV 13 0 completed Evelia Stout PA-C [address] [place] [address], [address], [facility] 06/17/2020 11:09:05 Influenza, high-dose, quadrivalent, PF 1 completed [facility] 05/05/2021 15:59:04 Influenza, split virus, quadrivalent, preservative 2 completed Thi Armendariz [facility] 04/26/2022 11:12:37 Influenza, adjuvanted, quadrivalent, PF 3 completed [facility] 05/16/2023 11:30:33 Tdap 0 completed KarenCHAD [facility] 06/28/2024 09:35:11 Influenza, adjuvanted, trivalent, PF 4 completed KarenCHAD [facility] 06/28/2024 09:36:06 Pneumococcal conjugate PCV20, polysaccharide [id number] conjugate, adjuvant, PF 2 completed KarenCHAD [facility] 06/28/2024 09:37:00 zoster recombinant 2 completed Karen Cuauhtemocgeyl [facility] 06/28/2024 09:37:34 zoster recombinant 2 completed Karen Chmura [facility] 06/28/2024 09:37:53 Past Encounters Encounter ID Performer Location Encounter Start Date Encounter Closed Date Diagnosis/Indication Diagnosis SNOMED-CT Code Diagnosis ICD10 Code Diagnosis Note [id number] Yelena Singh PA-C , [facility], OFFICE [address] [place] [address] 06/11/2012 13:50:17 06/11/2012 15:03:44 [id number] Justine Weston D.O. , [facility], OFFICE [address] [place] [address] 09/20/2012 13:47:13 09/20/2012 14:22:04 [id number] Jonathon Joshi MD Radiology , [facility] [address] [facility] [place] [address] 10/04/2012 10:35:55 10/05/2012 09:11:25 [id number] Justine Weston D.O. , [facility], OFFICE [address] [place] [address] 11/21/2013 08:14:53 11/21/2013 08:58:02 Adult health examination 064664396 see Risk Assessment and Lifestyle Change Counseling section above Counseling [id number] Screening mammography 70188153 Hyperlipidemia 10814760 on fibrate, overdue for labs Osteoarthritis 937815420 bilat knee OA, s/p TKR in [place] 3 yrs ago. bad experience , woudl not wantto go through that surgery again. Administra tion of diphtheria, pertussis, and tetanus vaccine 515699173 [id number] Jayant Ozuna III, MD , [facility], OFFICE [address] [place] [address] 12/19/2013 08:56:46 12/19/2013 09:24:06 Lumbago with sciatica 122691359 [id number] Justine Weston D.O. [facility], OFFICE [address] [place] [address] 11/24/2014 08:45:43 11/24/2014 09:18:15 Adult health examination 275614360 see Risk Assessment and Lifestyle Change Counseling section above Counseling 253429744 Arthritis 5924500 hand O A discussed PT/OT will consider if wants cortisone injection in wrist- gave her name of dr. echeverria Hyperlipidemia 07711262 [id number] Justine Weston D.O. , [facility], OFFICE [address] [place] [address] 11/26/2015 10:33:45 11/26/2015 11:51:18 Screening for disorder 752513108 Z11.59 Screening for malignant neoplasm of colon 531934087 Z12.11 Referral for a DIRECT booked colonoscop y. This patient is a healthy ASA Class 1 or 2 patient (only mild systemic disease), or a STABLE, well controlled insulin dependent diabetic. They do not have serious cardiac disease ie MA/angiopl asty within 1 year, symptomati c CHF; renal failure with CKD 4 or 5; take Coumadin, Plavix, Aggrenox, etc; nor take chronic narcotics. [Patients who take chronic narcotics should be referred to [facility] for a propofol procedure due to possible inability to sedate adequately with conscious sedation.] Bereavement 19633811 Z63 .4 of parokeet this month, very saD defers therapy, medication s Glaucoma suspect 8977206 08 H40.003 Adult [facility] th examination 194732849 Z00.00 see Risk Assessment and Lifestyle Change Counseling section above [id number] Len Mckeon DPM Podiatry, [address] [address] 02/12/2016 08:50:03 03/04/2016 15:35:23 [id number] Len Mckeon DPM Podiatry, [address] [place] [address] 02/16/2016 10:35:34 02/18/2016 13:14:14 Hammer toe 242939087 M20.41 [id number] Len Mckeon DPM Podiatry, [address] [address] 03/21/2016 09:42:51 04/18/2016 16:11:40 Hammer toe 028153891 M20.41 [id number] Adonis Rodriguez MD [facility], [address] [address] 07/18/2016 06:47:08 07/18/2016 14:03:23 [id number] Sylvester Sandoval MD , [facility], OFFICE [address] [place] [address] [place] [address] 08/25/2016 08:04:22 08/25/2016 12:56:09 Acute upper respiratory infection 53702494 J06.9 Afebrile in office, no sinus tenderness [...] back. Adjustment disorder with mixed emotional features 15169740 F43.23 Pt very stressed and anxious with [...] would like to discuss any treatment options. [id number] Justine Weston D.O. [facility], OFFICE [address] [place] [address] 10/12/2016 09:30:25 10/12/2016 10:10:31 Screening for disorder 722497858 Z11.59 Bronchopneumonia 0627743 07 J18.0 [id number] Justine Weston D.O. [facility], OFFICE [address] [place] [address] 10/17/2016 10:33:53 10/18/2016 16:18:28 Acute upper respiratory infection 33342990 J06.9 Educated patient that URI is a [...] failure to resolve in 2-4 weeks. Bronchospasm 5208534 J98 .01 [id number] Justine Weston D.O. [facility], OFFICE [address] [place] [address] 11/29/2016 10:37:02 11/29/2016 11:25:44 Adult health examination 729948147 Z00.00 see Risk Assessment and Lifestyle Change Counseling section above Screening mammography 24 560996 Z12.31 Screening for disorder 792795790 Z11.59 Visual impairment 807955 003 H54.7 glaucoma suspect, narrow angleneeds yearly exam Polyp of colon 15629860 K63.5 recent colonoscop y- 9 mm polyp in hepatic flexure- which gre in 1 year- will get repeat colo in 1 year [id number] Justine Weston D.O. [facility], OFFICE [address] [place] [address] 11/30/2017 09:12:52 11/30/2017 11:36:44 Adult health examination 968323963 Z00.00 see Risk Assessment and Lifestyle Change Counseling section above Depression screening 171 981812 Z13.89 depression screening tool administer ed, entered into emr, scored and discussed, time greater than 7.5 minutes Screening mammography 24 362524 Z12.31 Polyp of colon 58426699 K63.5 due for repeat colonosocp y this year- pt aware Obesity 753381176 E66.9 discussed increasing exrecise [id number] Nickolas Guerra MD , [facility], [address] [place] [address] 09/14/2018 16:48:10 09/17/2018 13:57:27 Acute upper respiratory infection 57950240 J06.9 Educated patient that URI is a [...] failure to resolve in 2-4 weeks. Cough 30357185 R05 [id number] Jaiden Baker MD , [facility], [address] [place] [address] 12/12/2018 09:11:06 12/12/2018 10:48:01 Adult health examination 309846802 Z00.00 see Risk Assessment and Lifestyle Change Counseling section above Depression screening 171 Z13.89 depression screening tool administer ed, entered into emr, scored and discussed, time greater than 7.5 minutes Screening mammography 24 907265 Z12.31 Discussed screening recommenda tion. Patient would like to proceed with screening. Hand pain 61346748 M79.6 43 Chronic DJD of handsWorse cheng hand pain and strength Will refer to hand surgery as patient would like to have a new brace made Cataract 405163257 H26.9 CataractsP atient following with Dr Fisher scheduled interventi on at this time Obesity 123453520 E66.9 BMI 31.8Discus sed lifestyle modificati on, mediterran angel diet and 30 minutes daily exerciseRe viewed impaired fasting glycemia noted on last BMP, will recheck in 1 year [id number] Nickolas Guerra MD , [facility], [address] [place] [address] 01/01/2019 15:05:52 01/01/2019 16:31:28 Acute upper respiratory infection 48695234 J06.9 Allergic rhinitis 573488 04 J30.9 [id number] Kash Crump MD , [facility], [address] [place] [address] 04/30/2020 11:00:42 05/04/2020 13:36:38 Otalgia 01390466 H92.03 Sinus infx vs otitis media vs URI vs COVID. Sinus PERRY x 7 days. Will treat presumptiv bharti for sinusitis and otitis externa. Discussed risk benefit of ppx abx - pt. would like to try abx. Will take daily probiotic at least 2 hours apart from abx. Denies PCN allergy. Will f/u if sxs worsen. Headache 38829952 R51 Suspected COVID-19 43469 4004 Z03.818 Onset of sxs 7 days ago: nausea, PERRY, cough, mild SOB, ear pain. No known exposure to COVID. . Discussed risk/benef its of testing, reviewed high false negative and importance of ending isolation based on sxs. Patient requesting testing. [facility] COVID order faxed.Advi sed isolation for 7 days from the onset of sxs and until 3 days of improved sxs and 3 days of no fever without use of antipyreti c. Patient safe to stay at home, will f/u if sxs worsen or with any questions or concerns. [id number] Jaiden Baker MD , [facility], [address] [place] [address] 09/10/2020 10:37:14 09/11/2020 11:14:02 Bilateral cataracts 79829116 H26.9 Pre-surger y evaluation 350471028 Z01.818 - pt presenting for pre-op, L cataract surgery scheduled 09/16/[address] Tate - Revised Cardiac Risk Index (RCRI): score 0, class I, 0.4% risk cardiac complicati ons - f/u with PCP as approprdeanna prabhakar [id number] Leonor Cortes , [facility], [address] [place] [address] 11/24/2021 11:13:35 12/02/2021 16:36:01 Adult health examination 582700942 Z00.00 Counseling 567439720 Z71 .9 Depression screening 171 487284 Z13.31 depression screening tool administer ed, entered into emr, scored and discussed, time greater than 7.5 minutes Sinusitis 85561988 J32.9 Has been 6 days, does not appear bacterial at this time, recommend symptomati c management . Pt to contact the office if no improvemen t or any worsening symptoms Obesity 354075741 E66.9 Elevated blood-pressure reading without diagnosis of hypertension 762113352 R03.0 Pt feels bp elevated today due to Sudafed use, declines returning to bp clinic to recheck [id number] Jaiden Baker MD , [facility], [address] [place] [address] 03/03/2022 09:58:08 03/04/2022 16:45:53 Pain of right knee joint 8234330821 52166 M25.561 s/p total R knee replacemen t [...] Elevated blood-pressure reading without diagnosis of hypertension 701741222 R03.0 above goal today, no HTNsuspect due to acute knee concerns as abovewill reassess once feeling better/abiola n for the knee is establishe d [id number] Antonio Bonilla MD Sports Medicine, [facility] [address] [place] [address] 03/09/2022 14:17:56 03/16/2022 13:09:52 Pain of right knee joint 5274557632 43278 M25.561 Aylin is a 66-year-ol d female [...] provider and was given a referral to [facility]. She will plan to call [...] ago as part of the office visit. [id number] Jaiden Baker MD , [facility], [address] [place] [address] 03/10/2022 09:54:38 03/10/2022 10:29:11 Elevated blood-pressure reading without diagnosis of hypertension 135916534 R03.0 above goal today, no hx HTNwill reassess once feeling better/abiola n for the knee is establishe d Pain of ri ght knee joint 7435275379 62043 M25.561 exam stablespor ts medicine consult note [...] enough to get her through the weekend [id number] Jaiden Baker MD , [facility], [address] [place] [address] 03/06/2023 09:01:52 03/08/2023 07:14:20 Adult health examination 972334882 Z00.00 Depression screening 171 139396 Z13.31 depression screening tool administer ed. no concerns. Screening for alcohol abuse 804499317 Z13.39 Alcohol use screening tool administer ed. does not drink alcohol, no concerns. Active or passive immunization 695398400 Z23 shingles-p t states they gotpneumo- pt states they got Obesity 775759071 E66.9 continue working on diet/exerc ise as discussedc all if interested in seeing nutrition Pain of ri ght knee joint 5499840389 36181 M25.561 recent ortho consult note reviewed, only [...] Elevated blood-pressure reading without diagnosis of hypertension 452289629 R03.0 typically above goal in office due to white coat HTNno hx HTN/not on medication swill have staff call next week to reassess home readings Carpal kassie rebekah syndrome of right wrist 7120797303 76490 G56.01 pending surgery, has consult later this week Hypertriglyceridemia 302 515787 E78.1 continues on fenofibrat erecck labs Counseled by member of primary health care team 395896333 Z71.9 Today we discussed ways to reduce [...] practition er may recommend taking daily aspirin. [id number] Jaiden Baker MD , [facility], [address] [place] [address] 04/20/2023 10:40:25 04/21/2023 14:42:08 Dysuria 67870658 R30.0 Patient with urinary symptoms.H istory and exam and urinalysis consistent with UTI. TReat w/ Bactrim for 3-7 days. Take probiotics . If concerns return? early symptoms of pyelonephr itis. Will give longer courseLow risk of . Will send urine for culture.Di scussed supportive and preventive measures.P atient instructed to follow up if not better or with new symptoms. Active or passive immunization 023827043 Z23 shingles-p atient got both doses History of calculus of kidney 058573789 Z87.442 If symptoms nolt resolved with antibiotic s needs u/s for KUB to eval bladder [id number] AIDEE CASTELLANO , [facility], [address] [place] [address] 01/19/2024 08:35:27 01/19/2024 10:32:07 Screening mammography 01758782 Z12.31 Postmenopausal state 764 54970 Z78.0 Pain in both feet 373144 6260 9005449 M79.671 No swelling, no evidence of heart failure. Pain does not fit the pattern of plantar fasciitis, suspect it is more arthritis related. Will have her go back for new orthotics. Continue cushioned shoes, rest, Tylenol - call if anything changes. Hypertriglyceridemia 302 055886 E78.2 Requests refill of fenofibrat e Osteoarthritis 440152700 M19.90 Significan t arthritis at baseline. Continue tylenol ES, advised she make a follow up with PCP as she reports her arthritis is worsening in multiple sites of her body. [id number] JF NICK , [facility], [address] [place] [address] 06/07/2024 14:51:11 06/07/2024 16:04:40 Active or passive immunization 136456453 Z23 Screening mammography 24 408832 Z12.31 has appt Postmenopausal state 764 92190 Z78.0 has appt for bone density Elevated blood-pressure reading without diagnosis of hypertension 397535234 R03.0 BP stable and at goal < [...] lower your blood pressure. Burn of skin 397971318 T 30.[address] refill topical Anterior c hest wall pain 074381830 R07.89 Right sided chest tenderness x weeks, worse with movementAd mittedly exerting self last week with groceries, cleaningDi scharged from [facility] ER 06/06/24 after normal EKG, labs incl. troponin and D-dimerImp roved today with heat, restH&P c/w likely muscular etiology - continue Tylenol, heat, restRTO if symptoms persist or worsen, if you develop any crushing chest pain or SOB Nocturia 326246488 R35.1 Increasing ly frequentA1 c 2022 prediabeti c - repeatAdvi se limiting fluids at night, scheduled bathroom tripsHX stonesMay want to get PVR if persists Prediabetes 369494903 R7 3.03 [id number] MD OSCAR Sullivan, [facility], [address] [place] [address] 06/10/2024 14:55:47 06/11/2024 18:16:05 [id number] Jaiden Baker MD FP, C, [address] [place] [address] 07/02/2024 09:25:45 07/02/2024 10:07:34 Active or passive immunization 337903363 Z23 Vaccines updated from [facility] 06/28/24 cc Postmenopausal state 764 14007 Z78.0 Bone Density ordered 01/19/24 cc Essential hypertension 86433166 I10 BP above goal <130/80in ED 06/06 [...] labs prior to f/u 1 mo Prediabetes 994004883 R7 3.03 recheck a1c with labs [id number] MARTELL FRANZ, C, [address] [place] [address] 09/05/2024 11:02:44 09/05/2024 12:54:31 Postmenopausal state 38056504 Z78.0 Ordered 01/19/24, pt no longer interested 09/05/24 cc Essential hypertension 42936348 I10 BP above goal but is improvedan xiety could be contributi ngdeclines to increase/a lter her medication at this timewill continue 150mg irbesartan for nowcontinu e home checks/log gingf/u 1 month to reassessla bs reviewed - WNL Anxiety 18500336 F41.9 stress/anx iety related to son's mental health, he's currently in the hospital awaiting [facility]P [facility] resources offered, she declines but will reach out if she changes her mind Hypertriglyceridemia 302 723904 E78.2 stable, continue fenofibrat ewill continue to monitor Impaired f asting glycemia 116345971 R73.01 no longer in pre diabetic range!will continue to monitor [id number] MARTELL FRANZ, [facility], [address] [place] [address] 11/07/2024 10:45:55 11/07/2024 11:31:36 Postmenopausal state 46982314 Z78.0 Ordered 01/19/24, pt no longer interested 09/05/24 cc, not interested 11/07/24 cc Essential hypertension 35096462 I10 BP avg above goalhigh daily stress contribute s (130s/70s when not stressed)r ec to increase to 300mg irbesartan , she declines and will continue the 150mg dose; declines alternativ e medication optionscon tinue home checks/log gingf/u 2-[address] labs WNL Anxiety 69957338 F41.9 high stress/anx iety mainly related to son's mental health, he's no longer living with them which [facility] resources discussed and offered again today, she declines but will reach out if she changes her mind Pain of ri ght knee joint 8062766393 54432 M25.561 s/p knee replacemen t in 50s and has had issues sincewas following with [facility], declines to f/u with them, [facility], or Dr. Jane repeat xray, last done in 2022encour aged to consider PT and call if interested in referral Dysfunctio n of bilateral eustachian tubes 4563895228 718501 H69.93 - symptoms consistent with ETD- reassuranc e given- recommende d consistent use of Flonase (1 spray per nostril twice daily) for a minimum of 2 weeks to open the eustachian tubes; can also trial daily antihistam ine- discussed may take several weeks to clear/impr ove, call if worsening [id number] AIDEE WRIGHT-BC FP, [facility], [address] [place] [address] 11/22/2024 15:06:08 11/22/2024 17:13:02 Screening mammography 67779759 Z12.31 Has scheduled 11/22/24 SD Postmenopausal state 764 75689 Z78.0 Ordered 01/19/24, pt no longer interested 09/05/24 cc, not interested 11/07/24 cc Declines 11/22/24 SD Essential hypertension 99066302 I10 BP above goalhigh daily stress contribute s (130s/70s when not stressed)r ec to increase to 300mg irbesartan , she declines and will continue the 150mg dose; declines alternativ e medication optionscon tinue home checks/log gingf/u as scheduled in a few months to check inlast labs WNL Anxiety 70950401 F41.9 high stress/anx iety mainly related to son's mental health, he's no longer living with them which has helpedPC[facility] resources discussed and offered again today, she declines but will reach out if she changes her mind Pain of ri ght knee joint 0209401871 81795 M25.561 s/p knee replacemen t in 50s and has had issues sincewas following with [facility], declines to f/u with them, [facility], or Dr. Castillo at imaging reassuring - WNL Pain of ri ght hip joint 9378502312 90061 M25.551 worsening RLE pain with notable discomfort with hip ROMR knee xrays reviewed and WNL s/p surgerywil l order additional hip/pelvis and SI imaging and f/u thereafter call in the interim with any worsening symptoms [id number] Jaiden Baker MD , [facility], [address] [place] [address] 02/07/2025 10:59:45 02/07/2025 11:32:01 Pain of right hip joint 1126833532 75330 M25.551 Been following with ortho, recently had [...] care Pain of ri ght knee joint 7990111593 20953 M25.561 - been following with ortho- see plan above Essential hypertension 81288942 I10 BP at goal in office today- high daily stress contribute s to higher BP at home- continue current dose of irbesartan - continue home checks/log ging- f/u in a few months to check in Anxiety 45918277 F41.9 high stress/anx iety mainly related to [...] Kelly Member ID Guarantor Name 02/06/2025 1 [facility] [id number] Len Jones Jr [id number] Aylin Jones Notes Date Note Type Note Provider Name and Address Organization Details Recorded Time 07/02/2024 text/html 07/02/24-here fo r BP f/u has anxiety around taking BP readings at homefelt dizzy, stopped taking BP at home and feels rtdaqw88/8 - 153/83, 163/9510/12 - 144/86, 152/9110/13 - [...] nightly to use bathroom. Nickolas Guerra MD [address] [place] [address], [phone], [facility] 07/02/2024 10:46:05 09/05/2024 text/html 09/05/24- BP f/u [...] stopped taking BP at home and feels mjoiod41/8 - 153/83, 163/9510/12 - 144/86, 152/9110/13 - [...] nightly to use bathroom. 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 RADHIKA BILLINGS PA-C [address] [place] [address], [phone], [facility] 11/07/2024 11:21:05 11/22/2024 text/html 11/22/24 c/o ongo ing R leg issues, see case #[id number]. SD feels pain she thought was her knee might not be her kneewhen going from bending to standing up, getting socks on, drying off after shower painfulpain starts around R knee, can be all the way down, radiates up to R hip and buttocksfeels area more or less gives outno issues w/ walking normally RADHIKA BILLINGS PA-C [address] [place], [phone], [facility] 11/22/2024 15:40:02 02/07/2025 text/html 02/07/25 69 year [...] c/o ongoing R leg issues, see case #[id number]. 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 RADHIKA BILLINGS PA-C [address] [place] [address], [phone], [facility] 02/07/2025 12:14:25 OBGyn Episode No OBEpisode recorded.
== END 2025-03-18 12:00 | disposition home or self-care (01) ==
LOC: HO.PMC 11:28
PROVIDERS: PCP Physician Assistant; Visit Provider Nurse Practitioner Family
DX: M51.369 Other intervertebral disc degeneration, lumbar region without mention of lumbar back pain or lower extremity pain (principal); M54.50 Low back pain, unspecified; M62.830 Muscle spasm of back; M46.1 Sacroiliitis, not elsewhere classified; M47.817 Spondylosis without myelopathy or radiculopathy, lumbosacral region; M25.551 Pain in right hip; G89.29 Other chronic pain
CPT/HCPCS: 99214